=== PATIENT | male | born 1955 | race Caucasian/White ===

== ENCOUNTER → 2016-10-27 | Outpatient (CLI) | payer OTHER ==
[~2016-10-27] MED LIST: ASPI81TA85 PO; CALCTAB52 PO; MICA80TA PO; MULTTAB PO; OMEP20CA3 PO; SUPETAB25 PO
[2016-10-27 07:39] LABS: ALBUMIN/GLOBULIN RATIO 1.74 (1.00-1.93); ALKALINE PHOSPHATASE 121 U/L (45-117); ALT/SGPT 24 U/L (12-78); ANION GAP 9 MEQ/L (8-16); AST/SGOT 17 U/L (15-37); BILIRUBIN,TOTAL 0.5 MG/DL (0.2-1.0); BLOOD UREA NITROGEN 21 MG/DL (7-18); CALCIUM LEVEL 9.4 MG/DL (8.8-10.2); CARBON DIOXIDE LEVEL 28 MEQ/L (21-32); CHLORIDE LEVEL 108 MEQ/L (98-107); CHOLESTEROL LEVEL 146 MG/DL (<200); CREATININE FOR GFR 1.04 MG/DL (0.70-1.30); FERRITIN 267 NG/ML (26-388); GLOMERULAR FILTRATION RATE > 60.0 (>49); GLUCOSE, FASTING 94 MG/DL (80-110); PERCENT SATURATION 43.3 % (19.7-37.4); SODIUM LEVEL 145 MEQ/L (136-145); TOTAL IRON BINDING CAPACITY 240 UG/DL (250-450); TOTAL PROTEIN 6.3 GM/DL (6.4-8.2); TRIGLYCERIDES LEVEL 174 MG/DL (<150)
[2016-10-27 09:31] LABS: PROLACTIN 6.8 NG/ML (2.1-17.7); VITAMIN B12 LEVEL 337 PG/ML (247-911)
[2016-10-27 12:02] LABS: ALBUMIN 4.05 GM/DL (3.29-5.55); ALBUMIN % 64.3 % (55.8-66.1); GAMMA GLOBULIN % 6.9 % (11.1-18.8)
[2016-10-29 11:21] LABS: PRETREATED FOLATE FOR RBCFOL 16.1 NG/ML
== END ==
LOC: M LAB 06:11
PROVIDERS: ATTEND Family Medicine
DX: N18.2 Chronic kidney disease, stage 2 (mild) (principal); E83.119 Hemochromatosis, unspecified; R73.01 Impaired fasting glucose; E78.2 Mixed hyperlipidemia; N52.9 Male erectile dysfunction, unspecified

== ENCOUNTER → 2016-12-23 | Outpatient (CLI) | payer OTHER ==
--- NOTE | 2016-12-23 18:41 | ECGEPIP ---
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
== END ==
LOC: M LAB 08:38
PROVIDERS: ATTEND Orthopaedic Surgery
DX: Z01.818 Encounter for other preprocedural examination (principal); I10 Essential (primary) hypertension

== ENCOUNTER → 2017-02-23 | Outpatient (CLI) | payer OTHER ==
--- NOTE | 2017-02-23 21:25 | REP ---
CHEST PA AND LATERAL: 02/23/2017. Comparison: 02/14/2014, 08/19/2011. Clinical history: Suspected pneumonia. Two views are provided. Findings: Lungs are well inflated. CP angles sharply defined. There is some minor lateral pleural thickening bilaterally and apical pleural scarring noted. Mild hyperinflation and prominence of the pulmonary arteries bilaterally, unchanged. Peribronchial thickening noted bilaterally, which might reflect reactive airway disease or bronchitis. I do not see dense consolidation. Streaky atelectatic or early infiltrative changes in the bases on the lateral view and retrocardiac left lower lobe. No effusion. No air bronchograms. Heart not enlarged. No pulmonary edema. The aorta normal. Bones without compression deformity. Impression: 1. Perihilar changes of bronchitis or reactive airway disease without dense consolidation or air bronchograms. There are some streaky densities infrahilar region in the retrocardiac zone. 2. Pulmonary artery hypertension noted and apical pleural and lateral pleural scarring. 3. No cardiomegaly, edema or effusion. Signed by Deny Ríos MD 02/24/2017 06:03 P
== END ==
LOC: M ADAMS 17:30
PROVIDERS: ATTEND Physician Assistant Medical
DX: J18.9 Pneumonia, unspecified organism (principal)

== ENCOUNTER → 2017-03-24 | Outpatient (CLI) | payer OTHER ==
[2017-03-24 10:00] LABS: BASO % 0.6 % (0.0-1.0); EOS # 0.4 K/mm3 (0.0-0.50); EOS % 4.8 % (0.0-3.0); LARGE UNSTAINED CELL # 0.1 K/mm3 (0.0-0.4); LARGE UNSTAINED CELL % 1.5 % (0.0-4.0); LYMPH # 2.4 K/mm3 (1.5-4.5); LYMPH % 26.5 % (24.0-44.0); MEAN CORPUSCULAR HEMOGLOBIN 34.2 pg (27.0-33.0); MEAN CORPUSCULAR HGB CONC 34.4 g/dl (32.0-36.5); MEAN CORPUSCULAR VOLUME 99.6 fl (80.0-96.0); MONO # 0.5 K/mm3 (0.0-0.8); MONO % 5.9 % (0.0-5.0); NEUTROPHILS # 5.1 K/mm3 (1.8-7.7); NEUTROPHILS % 60.7 % (36.0-66.0); PLATELET COUNT, AUTOMATED 112 k/mm3 (150-450); RED CELL DISTRIBUTION WIDTH 14.1 % (11.5-14.5); WHITE BLOOD COUNT 8.4 K/mm3 (4.0-10.0)
[2017-03-24 10:48] LABS: FERRITIN 311 NG/ML (26-388); IMMUNOGLOBULIN G 303 MG/DL (681-1648); PERCENT SATURATION 40.6 % (19.7-37.4); TOTAL IRON BINDING CAPACITY 251 UG/DL (250-450); VITAMIN B12 LEVEL 410 PG/ML (247-911)
[2017-03-24 11:41] LABS: IMMUNOGLOBULIN A 18.3 MG/DL (70-400)
[2017-03-24 16:40] LABS: IMMUNOGLOBULIN M 300 MG/DL (40-230)
[2017-03-26 00:07] LABS: ANTI-PARIETAL CELL ANTIBODY 4.3 Units (0.0-20.0); FREE KAPPA LIGHT CHAINS SERUM 3814.5 mg/L (3.3-19.4); FREE LAMBDA LIGHT CHAINS SERUM 3.6 mg/L (5.7-26.3); KAPPA/LAMBDA RATIO SERUM 1059.58 (0.26-1.65)
== END ==
LOC: M LAB 08:39
PROVIDERS: ATTEND Family Medicine
DX: E83.119 Hemochromatosis, unspecified (principal)

== ENCOUNTER → 2017-04-01 | Outpatient (REF) | payer OTHER ==
[2017-04-01 12:13] LABS: ALBUMIN/GLOBULIN RATIO 1.43 (1.00-1.93); ALKALINE PHOSPHATASE 120 U/L (45-117); ALT/SGPT 29 U/L (12-78); ANION GAP 7 MEQ/L (8-16); AST/SGOT 21 U/L (15-37); BILIRUBIN,TOTAL 0.6 MG/DL (0.2-1.0); BLOOD UREA NITROGEN 17 MG/DL (7-18); CALCIUM LEVEL 9.1 MG/DL (8.8-10.2); CARBON DIOXIDE LEVEL 30 MEQ/L (21-32); CHLORIDE LEVEL 106 MEQ/L (98-107); CREATININE FOR GFR 1.07 MG/DL (0.70-1.30); GLOMERULAR FILTRATION RATE > 60.0 (>49); GLUCOSE, FASTING 84 MG/DL (80-110); SODIUM LEVEL 143 MEQ/L (136-145); TOTAL PROTEIN 6.8 GM/DL (6.4-8.2)
[2017-04-04 10:41] LABS: ALBUMIN 4.33 GM/DL (3.29-5.55); ALBUMIN % 63.7 % (55.8-66.1); GAMMA GLOBULIN % 6.6 % (11.1-18.8)
== END ==
LOC: M SFHCPLAZ 08:56
PROVIDERS: ATTEND Family Medicine
DX: D47.2 Monoclonal gammopathy (principal); R73.01 Impaired fasting glucose

== ENCOUNTER → 2017-04-12 | Outpatient (REF) | payer OTHER | LOC: M LAB REF 18:04 | PROVIDERS: ATTEND Internal Medicine Medical Oncology | DX: D47.2 Monoclonal gammopathy (principal) ==

== ENCOUNTER → 2017-04-12 | Outpatient (REF) | payer OTHER | LOC: M LAB REF 18:04 | PROVIDERS: ATTEND Internal Medicine Medical Oncology | DX: C90.00 Multiple myeloma not having achieved remission (principal) ==

== ENCOUNTER → 2017-06-14 | Outpatient (CLI) | payer OTHER ==
[2017-06-14 08:23] LABS: BASO # 0.1 10^3/uL (0.0-0.2); BASO % 0.9 % (0.0-1.0); EOS # 0.2 10^3/uL (0.0-0.50); EOS % 2.9 % (0.0-3.0); IMMATURE GRANULOCYTE % 3.8 % (0-0); LYMPH # 1.9 10^3/uL (1.5-4.5); MEAN CORPUSCULAR HEMOGLOBIN 33.6 pg (27.0-33.0); MEAN CORPUSCULAR HGB CONC 34.3 g/dl (32.0-36.5); MONO # 0.7 10^3/uL (0.0-0.8); MONO % 10.7 % (0.0-5.0); NEUTROPHILS # 3.7 10^3/uL (1.8-7.7); NEUTROPHILS % 53.7 % (36.0-66.0); PLATELET COUNT, AUTOMATED 112 10^3/uL (150-450); RED CELL DISTRIBUTION WIDTH 13.2 % (11.5-14.5); WHITE BLOOD COUNT 6.8 10^3/uL (4.0-10.0)
[2017-06-14 08:52] LABS: ALBUMIN 3.7 GM/DL (3.2-5.2); ALBUMIN/GLOBULIN RATIO 1.42 (1.00-1.93); ALKALINE PHOSPHATASE 105 U/L (45-117); ALT/SGPT 19 U/L (12-78); ANION GAP 7 MEQ/L (8-16); AST/SGOT 16 U/L (15-37); BILIRUBIN,TOTAL 0.5 MG/DL (0.2-1.0); BLOOD UREA NITROGEN 18 MG/DL (7-18); CALCIUM LEVEL 9.2 MG/DL (8.8-10.2); CARBON DIOXIDE LEVEL 28 MEQ/L (21-32); CHLORIDE LEVEL 107 MEQ/L (98-107); CREATININE FOR GFR 1.06 MG/DL (0.70-1.30); GLOMERULAR FILTRATION RATE > 60.0 (>49); GLUCOSE, FASTING 102 MG/DL (80-110); POTASSIUM SERUM 3.9 MEQ/L (3.5-5.1); SODIUM LEVEL 142 MEQ/L (136-145); TOTAL PROTEIN 6.3 GM/DL (6.4-8.2)
[2017-06-14 09:37] LABS: VITAMIN B12 LEVEL 268 PG/ML (247-911)
--- NOTE | 2017-06-14 09:46 | REP ---
Skeletal survey adult: 16 views. History: Monoclonal gammopathy. Comparison study: April 01, 2017. Technique: AP and lateral views of the skull, cervical spine, thoracic spine and lumbar spine are obtained. AP view of the pelvis and AP views of each humerus and each femur are acquired. Total of 16 views. Findings: AP and lateral views of the skull show an intact bony calvarium. No radiolucent lesion seen. Cervical spine views show degenerative disc disease but no collapse or focal lytic lesion. Swimmers lateral view shows no additional abnormality. AP and lateral views of the thoracic spine show mild levoconvex curvature and degenerative disc changes. Pedicles and posterior elements are intact. Vertebral body heights are preserved. Lumbar spine views show discogenic spurring but no other abnormality. There is some vascular calcification. AP pelvis shows no lytic lesion. AP views of the femurs are remarkable for old post-traumatic deformity of the right femoral diaphysis and some osteoarthritis of the right knee. Humeral views are unremarkable as well. Impression: Negative skeletal survey. No lytic bony destructive lesion seen. Signed by Amando Delarosa MD 06/14/2017 05:26 P
[2017-06-18 00:07] LABS: FREE KAPPA LIGHT CHAINS SERUM 3924.3 mg/L (3.3-19.4); KAPPA/LAMBDA RATIO SERUM 1308.1 (0.26-1.65)
== END ==
LOC: M RAD 07:28
PROVIDERS: ATTEND Internal Medicine Medical Oncology
DX: D47.2 Monoclonal gammopathy (principal)

== ENCOUNTER → 2017-08-01 | Outpatient (CLI) | payer OTHER ==
[2017-08-01 08:46] LABS: BASO # 0.1 10^3/uL (0.0-0.2); BASO % 0.6 % (0.0-1.0); EOS # 0.3 10^3/uL (0.0-0.50); EOS % 3.4 % (0.0-3.0); LYMPH # 2.4 10^3/uL (1.5-4.5); LYMPH % 29.7 % (24.0-44.0); MEAN CORPUSCULAR HEMOGLOBIN 33.3 pg (27.0-33.0); MEAN CORPUSCULAR HGB CONC 33.9 g/dl (32.0-36.5); MEAN CORPUSCULAR VOLUME 98.5 fl (80.0-96.0); MONO # 0.9 10^3/uL (0.0-0.8); MONO % 10.8 % (0.0-5.0); NEUTROPHILS # 4.2 10^3/uL (1.8-7.7); NEUTROPHILS % 52.5 % (36.0-66.0); PLATELET COUNT, AUTOMATED 111 10^3/uL (150-450); RED CELL DISTRIBUTION WIDTH 13.4 % (11.5-14.5)
[2017-08-01 09:22] LABS: ALBUMIN 3.7 GM/DL (3.2-5.2); ALBUMIN/GLOBULIN RATIO 1.48 (1.00-1.93); ALKALINE PHOSPHATASE 100 U/L (45-117); ALT/SGPT 17 U/L (12-78); ANION GAP 8 MEQ/L (8-16); AST/SGOT 17 U/L (7-37); BILIRUBIN,TOTAL 0.6 MG/DL (0.2-1.0); BLOOD UREA NITROGEN 17 MG/DL (7-18); CALCIUM LEVEL 8.9 MG/DL (8.8-10.2); CARBON DIOXIDE LEVEL 28 MEQ/L (21-32); CHLORIDE LEVEL 107 MEQ/L (98-107); CREATININE FOR GFR 1.01 MG/DL (0.70-1.30); GLOMERULAR FILTRATION RATE > 60.0 (>49); GLUCOSE, FASTING 86 MG/DL (80-110); MAGNESIUM LEVEL 2.1 MG/DL (1.8-2.4); SODIUM LEVEL 143 MEQ/L (136-145); TOTAL PROTEIN 6.2 GM/DL (6.4-8.2)
== END ==
LOC: M LAB 07:45
PROVIDERS: ATTEND Family Medicine
DX: I10 Essential (primary) hypertension (principal)

== ENCOUNTER → 2017-09-23 | Outpatient (CLI) | payer OTHER ==
[2017-09-23 08:41] LABS: BASO # 0.1 10^3/uL (0.0-0.2); EOS # 0.3 10^3/uL (0.0-0.50); EOS % 3.5 % (0.0-3.0); HEMATOCRIT 32.3 % (42.0-52.0); IMMATURE GRANULOCYTE # 0.1 10^3/uL (0-0); IMMATURE GRANULOCYTE % 1.8 % (0-0); LYMPH # 2.1 10^3/uL (1.5-4.5); LYMPH % 27.8 % (24.0-44.0); MEAN CORPUSCULAR HEMOGLOBIN 33.2 pg (27.0-33.0); MEAN CORPUSCULAR HGB CONC 34.1 g/dl (32.0-36.5); MEAN CORPUSCULAR VOLUME 97.6 fl (80.0-96.0); MONO # 0.8 10^3/uL (0.0-0.8); MONO % 9.9 % (0.0-5.0); NEUTROPHILS # 4.3 10^3/uL (1.8-7.7); PLATELET COUNT, AUTOMATED 113 10^3/uL (150-450); RED BLOOD COUNT 3.31 10^6/uL (4.30-6.10); RED CELL DISTRIBUTION WIDTH 13.8 % (11.5-14.5); WHITE BLOOD COUNT 7.7 10^3/uL (4.0-10.0)
[2017-09-23 09:31] LABS: ALBUMIN/GLOBULIN RATIO 1.48 (1.00-1.93); ALKALINE PHOSPHATASE 104 U/L (45-117); ALT/SGPT 21 U/L (12-78); ANION GAP 6 MEQ/L (8-16); AST/SGOT 19 U/L (7-37); BILIRUBIN,TOTAL 0.5 MG/DL (0.2-1.0); BLOOD UREA NITROGEN 19 MG/DL (7-18); CARBON DIOXIDE LEVEL 28 MEQ/L (21-32); CHLORIDE LEVEL 107 MEQ/L (98-107); CREATININE FOR GFR 1.01 MG/DL (0.70-1.30); GLOMERULAR FILTRATION RATE > 60.0 (>49); GLUCOSE, FASTING 99 MG/DL (80-110); IMMUNOGLOBULIN G 294 MG/DL (681-1648); POTASSIUM SERUM 4.1 MEQ/L (3.5-5.1); SODIUM LEVEL 141 MEQ/L (136-145); TOTAL PROTEIN 6.7 GM/DL (6.4-8.2)
[2017-09-23 10:43] LABS: IMMUNOGLOBULIN M 454 MG/DL (40-230)
[2017-09-23 10:44] LABS: IMMUNOGLOBULIN A 15.6 MG/DL (70-400)
[2017-09-26 11:23] LABS: ALBUMIN 4.25 GM/DL (3.29-5.55); ALBUMIN % 63.5 % (55.8-66.1); ALPHA-1-GLOBULIN % 4.3 % (2.9-4.9); ALPHA-1-GLOBULINS 0.29 GM/DL (0.17-0.41); ALPHA-2-GLOBULINS 0.82 GM/DL (0.42-0.99); ALPHA-2-GLOBULINS % 12.2 % (7.1-11.8); BETA-1-GLOBULINS 0.66 GM/DL (0.28-0.60); BETA-1-GLOBULINS % 9.9 % (4.7-7.2); BETA-2-GLOBULINS 0.25 GM/DL (0.19-0.55); BETA-2-GLOBULINS % 3.8 % (3.2-6.5); GAMMA GLOBULIN % 6.3 % (11.1-18.8); GAMMA GLOBULINS 0.42 GM/DL (0.65-1.58)
[2017-09-28 00:06] LABS: FREE KAPPA LIGHT CHAINS SERUM 4399.9 mg/L (3.3-19.4); FREE LAMBDA LIGHT CHAINS SERUM 3.1 mg/L (5.7-26.3); KAPPA/LAMBDA RATIO SERUM 1419.32 (0.26-1.65)
[2017-09-28 00:06] LABS: SERUM VISCOSITY 1.6 rel.saline (1.6-1.9)
== END ==
LOC: M LAB 07:48
DX: C85.90 Non-Hodgkin lymphoma, unspecified, unspecified site (principal)
CPT/HCPCS: 84165

== ENCOUNTER → 2017-11-25 | Outpatient (CLI) | payer OTHER ==
[2017-11-25 08:46] LABS: BASO # 0.1 10^3/uL (0.0-0.2); BASO % 0.7 % (0.0-1.0); EOS # 0.3 10^3/uL (0.0-0.50); EOS % 2.8 % (0.0-3.0); HEMATOCRIT 32.8 % (42.0-52.0); HEMOGLOBIN 10.8 g/dl (14.0-18.0); IMMATURE GRANULOCYTE % 2.5 % (0-3.0); LYMPH # 2.2 10^3/uL (1.5-4.5); LYMPH % 21.7 % (24.0-44.0); MEAN CORPUSCULAR HEMOGLOBIN 32.7 pg (27.0-33.0); MEAN CORPUSCULAR HGB CONC 32.9 g/dl (32.0-36.5); MEAN CORPUSCULAR VOLUME 99.4 fl (80.0-96.0); MONO # 0.8 10^3/uL (0.0-0.8); NEUTROPHILS # 6.4 10^3/uL (1.8-7.7); NEUTROPHILS % 64.3 % (36.0-66.0); PLATELET COUNT, AUTOMATED 118 10^3/uL (150-450); RED CELL DISTRIBUTION WIDTH 14.9 % (11.5-14.5); WHITE BLOOD COUNT 9.9 10^3/uL (4.0-10.0)
[2017-11-25 09:14] LABS: URINE TOTAL PROTEIN 50.9 MG/DL (0-12)
[2017-11-25 09:20] LABS: GLUCOSE, FASTING 95 MG/DL (70-100)
[2017-11-25 09:21] LABS: ALBUMIN 4.1 GM/DL (3.2-5.2); ALBUMIN/GLOBULIN RATIO 1.41 (1.00-1.93); ALKALINE PHOSPHATASE 137 U/L (45-117); ALT/SGPT 23 U/L (12-78); ANION GAP 8 MEQ/L (8-16); AST/SGOT 23 U/L (7-37); BILIRUBIN,TOTAL 0.5 MG/DL (0.2-1.0); BLOOD UREA NITROGEN 18 MG/DL (7-18); CALCIUM LEVEL 9.1 MG/DL (8.8-10.2); CARBON DIOXIDE LEVEL 27 MEQ/L (21-32); CHLORIDE LEVEL 106 MEQ/L (98-107); CREATININE FOR GFR 0.99 MG/DL (0.70-1.30); GLOMERULAR FILTRATION RATE > 60.0 (>49); POTASSIUM SERUM 4.3 MEQ/L (3.5-5.1); SODIUM LEVEL 141 MEQ/L (136-145)
[2017-11-28 14:22] LABS: ALBUMIN % 60.8 % (55.8-66.1); ALPHA-1-GLOBULIN % 4.9 % (2.9-4.9); ALPHA-2-GLOBULINS % 13.8 % (7.1-11.8); BETA-1-GLOBULINS % 10.1 % (4.7-7.2)
[2017-11-28 14:23] LABS: ALBUMIN 4.26 GM/DL (3.29-5.55); ALPHA-1-GLOBULINS 0.34 GM/DL (0.17-0.41); ALPHA-2-GLOBULINS 0.97 GM/DL (0.42-0.99); BETA-1-GLOBULINS 0.71 GM/DL (0.28-0.60); BETA-2-GLOBULINS 0.29 GM/DL (0.19-0.55); BETA-2-GLOBULINS % 4.1 % (3.2-6.5); GAMMA GLOBULIN % 6.3 % (11.1-18.8); GAMMA GLOBULINS 0.44 GM/DL (0.65-1.58)
[2017-11-30 00:07] LABS: FREE KAPPA LIGHT CHAINS SERUM 6611.5 mg/L (3.3-19.4); FREE LAMBDA LIGHT CHAINS SERUM 4.2 mg/L (5.7-26.3); KAPPA/LAMBDA RATIO SERUM 1574.17 (0.26-1.65)
== END ==
LOC: M LAB 07:55
DX: C85.90 Non-Hodgkin lymphoma, unspecified, unspecified site (principal)

== ENCOUNTER → 2018-01-06 | Outpatient (CLI) | payer OTHER ==
[2018-01-06 08:08] LABS: BASO # 0.1 10^3/uL (0.0-0.2); BASO % 0.8 % (0.0-1.0); EOS # 0.4 10^3/uL (0.0-0.50); EOS % 4.6 % (0.0-3.0); HEMATOCRIT 30.7 % (42.0-52.0); HEMOGLOBIN 10.4 g/dl (13.5-17.5); IMMATURE GRANULOCYTE % 1.9 % (0-3.0); LYMPH # 2.2 10^3/uL (1.5-4.5); LYMPH % 26.5 % (24.0-44.0); MEAN CORPUSCULAR HEMOGLOBIN 32.6 pg (27.0-33.0); MEAN CORPUSCULAR HGB CONC 33.9 g/dl (32.0-36.5); MEAN CORPUSCULAR VOLUME 96.2 fl (80.0-96.0); MONO # 0.7 10^3/uL (0.0-0.8); MONO % 8.7 % (0.0-5.0); NEUTROPHILS # 4.9 10^3/uL (1.8-7.7); NEUTROPHILS % 57.5 % (36.0-66.0); PLATELET COUNT, AUTOMATED 113 10^3/uL (150-450); RED BLOOD COUNT 3.19 10^6/uL (4.30-6.10); RED CELL DISTRIBUTION WIDTH 14.6 % (11.5-14.5); WHITE BLOOD COUNT 8.4 10^3/uL (4.0-10.0)
[2018-01-06 09:06] LABS: ALBUMIN 3.9 GM/DL (3.2-5.2); ALBUMIN/GLOBULIN RATIO 1.39 (1.00-1.93); ALKALINE PHOSPHATASE 118 U/L (45-117); ALT/SGPT 17 U/L (12-78); ANION GAP 8 MEQ/L (8-16); AST/SGOT 19 U/L (7-37); BILIRUBIN,TOTAL 0.4 MG/DL (0.2-1.0); BLOOD UREA NITROGEN 24 MG/DL (7-18); CALCIUM LEVEL 8.8 MG/DL (8.8-10.2); CARBON DIOXIDE LEVEL 26 MEQ/L (21-32); CHLORIDE LEVEL 107 MEQ/L (98-107); CREATININE FOR GFR 1.02 MG/DL (0.70-1.30); GLOMERULAR FILTRATION RATE > 60.0 (>49); GLUCOSE, FASTING 106 MG/DL (70-100); IMMUNOGLOBULIN G 257 MG/DL (681-1648); POTASSIUM SERUM 4.2 MEQ/L (3.5-5.1); SODIUM LEVEL 141 MEQ/L (136-145); TOTAL PROTEIN 6.7 GM/DL (6.4-8.2)
[2018-01-06 09:38] LABS: IMMUNOGLOBULIN M 413 MG/DL (40-230)
[2018-01-06 09:42] LABS: IMMUNOGLOBULIN A 14.9 MG/DL (70-400)
[2018-01-06 10:20] LABS: HEPATITIS B SURFACE ANTIGEN NEGATIVE (NEGATIVE)
[2018-01-06 10:47] LABS: HEPATITIS C VIRUS ABY INDEX < 0.0 INDEX (<0.8)
[2018-01-06 10:48] LABS: HEPATITIS B CORE ANTIBODY IGM NEGATIVE (NEGATIVE)
[2018-01-08 00:06] LABS: FREE KAPPA LIGHT CHAINS SERUM 4231.3 mg/L (3.3-19.4); FREE LAMBDA LIGHT CHAINS SERUM 2.6 mg/L (5.7-26.3); KAPPA/LAMBDA RATIO SERUM 1627.42 (0.26-1.65)
[2018-01-09 11:29] LABS: ALBUMIN 4.19 GM/DL (3.29-5.55); ALBUMIN % 62.6 % (55.8-66.1); ALPHA-1-GLOBULIN % 4.5 % (2.9-4.9); ALPHA-2-GLOBULINS % 13.6 % (7.1-11.8); BETA-1-GLOBULINS % 9.9 % (4.7-7.2); BETA-2-GLOBULINS % 3.8 % (3.2-6.5); GAMMA GLOBULIN % 5.6 % (11.1-18.8)
[2018-01-09 11:30] LABS: ALPHA-2-GLOBULINS 0.91 GM/DL (0.42-0.99); BETA-1-GLOBULINS 0.66 GM/DL (0.28-0.60); BETA-2-GLOBULINS 0.25 GM/DL (0.19-0.55); GAMMA GLOBULINS 0.38 GM/DL (0.65-1.58)
== END ==
LOC: M LAB 07:02
DX: E53.8 Deficiency of other specified B group vitamins (principal); D47.2 Monoclonal gammopathy; E83.119 Hemochromatosis, unspecified; R73.01 Impaired fasting glucose; E78.2 Mixed hyperlipidemia; N18.2 Chronic kidney disease, stage 2 (mild)
CPT/HCPCS: 84165

== ENCOUNTER → 2018-01-20 | Outpatient (CLI) | payer OTHER ==
[2018-01-20 08:30] LABS: BASO # 0.1 10^3/uL (0.0-0.2); BASO % 0.9 % (0.0-1.0); EOS # 0.4 10^3/uL (0.0-0.50); HEMATOCRIT 29.7 % (42.0-52.0); HEMOGLOBIN 9.9 g/dl (13.5-17.5); IMMATURE GRANULOCYTE % 1.9 % (0-3.0); LYMPH # 2.1 10^3/uL (1.5-4.5); LYMPH % 23.5 % (24.0-44.0); MEAN CORPUSCULAR HEMOGLOBIN 32.6 pg (27.0-33.0); MEAN CORPUSCULAR HGB CONC 33.3 g/dl (32.0-36.5); MEAN CORPUSCULAR VOLUME 97.7 fl (80.0-96.0); NEUTROPHILS # 5.2 10^3/uL (1.8-7.7); NEUTROPHILS % 58.7 % (36.0-66.0); PLATELET COUNT, AUTOMATED 113 10^3/uL (150-450); RED BLOOD COUNT 3.04 10^6/uL (4.30-6.10); RED CELL DISTRIBUTION WIDTH 14.8 % (11.5-14.5); WHITE BLOOD COUNT 8.8 10^3/uL (4.0-10.0)
[2018-01-20 08:51] LABS: ESTIMATED AVERAGE GLUCOSE 103 MG/DL (60-110); HEMOGLOBIN A1c 5.2 %
[2018-01-20 09:02] LABS: ALBUMIN 3.8 GM/DL (3.2-5.2); ALBUMIN/GLOBULIN RATIO 1.36 (1.00-1.93); ALKALINE PHOSPHATASE 116 U/L (45-117); ALT/SGPT 14 U/L (12-78); ANION GAP 5 MEQ/L (8-16); AST/SGOT 19 U/L (7-37); BILIRUBIN,TOTAL 0.5 MG/DL (0.2-1.0); BLOOD UREA NITROGEN 22 MG/DL (7-18); CALCIUM LEVEL 8.9 MG/DL (8.8-10.2); CARBON DIOXIDE LEVEL 27 MEQ/L (21-32); CHLORIDE LEVEL 110 MEQ/L (98-107); CHOLESTEROL LEVEL 143 MG/DL (<200); CREATININE FOR GFR 1.13 MG/DL (0.70-1.30); GLOMERULAR FILTRATION RATE > 60.0 (>49); GLUCOSE, FASTING 98 MG/DL (70-100); HDL CHOLESTEROL 25 MG/DL (>40); LDL CHOLESTEROL 68.4 MG/DL (<100); NON-HDL-C 118 MG/DL; POTASSIUM SERUM 4.5 MEQ/L (3.5-5.1); SODIUM LEVEL 142 MEQ/L (136-145); TOTAL PROTEIN 6.6 GM/DL (6.4-8.2); TRIGLYCERIDES LEVEL 248 MG/DL (<150)
[2018-01-20 11:08] LABS: VITAMIN B12 LEVEL 377 PG/ML (247-911)
== END ==
LOC: M LAB 07:51
DX: E53.8 Deficiency of other specified B group vitamins (principal)
CPT/HCPCS: 82607

== ENCOUNTER → 2018-03-02 | Outpatient (REF) | payer OTHER ==
[2018-03-02 11:31] LABS: IMMUNOGLOBULIN G 202 MG/DL (681-1648); IMMUNOGLOBULIN M 332 MG/DL (40-230)
[2018-03-02 12:27] LABS: IMMUNOGLOBULIN A 9.3 MG/DL (70-400)
[2018-03-04 08:08] LABS: SERUM VISCOSITY 1.6 rel.saline (1.6-1.9)
[2018-03-04 08:08] LABS: FREE KAPPA LIGHT CHAINS SERUM 3540.5 mg/L (3.3-19.4); FREE LAMBDA LIGHT CHAINS SERUM 2.4 mg/L (5.7-26.3); KAPPA/LAMBDA RATIO SERUM 1475.21 (0.26-1.65)
== END ==
LOC: M LAB REF 10:44
DX: C88.0 Waldenstrom macroglobulinemia (principal); C83.5 Lymphoblastic (diffuse) lymphoma (principal)
CPT/HCPCS: 82784

== ENCOUNTER → 2018-03-20 | Outpatient (REF) | payer MEDICARE, OTHER ==
[2018-03-20 18:53] LABS: IMMUNOGLOBULIN A < 7.8 MG/DL (70-400); IMMUNOGLOBULIN G 203 MG/DL (681-1648); IMMUNOGLOBULIN M 366 MG/DL (40-230)
[2018-03-29 09:06] LABS: SERUM VISCOSITY 1.8 rel.saline (1.6-1.9)
[2018-03-29 09:06] LABS: FREE KAPPA LIGHT CHAINS SERUM 3520.8 mg/L (3.3-19.4); FREE LAMBDA LIGHT CHAINS SERUM 1.9 mg/L (5.7-26.3); KAPPA/LAMBDA RATIO SERUM 1853.05 (0.26-1.65)
== END ==
LOC: M LAB REF 13:58
DX: C83.5 Lymphoblastic (diffuse) lymphoma (principal)
CPT/HCPCS: 82784

== ENCOUNTER → 2018-04-10 | Outpatient (REF) | payer MEDICARE, OTHER ==
[2018-04-12 00:07] LABS: FREE KAPPA LIGHT CHAINS SERUM 2270.3 mg/L (3.3-19.4); FREE LAMBDA LIGHT CHAINS SERUM 2.6 mg/L (5.7-26.3); KAPPA/LAMBDA RATIO SERUM 873.19 (0.26-1.65)
[2018-04-17 10:37] LABS: IMMUNOGLOBULIN M 245 MG/DL (40-230)
== END ==
LOC: M LAB REF 13:27
DX: C83.5 Lymphoblastic (diffuse) lymphoma (principal)
CPT/HCPCS: 82784

== ENCOUNTER → 2018-04-17 | Outpatient (REF) | payer OTHER ==
[2018-04-17 16:41] LABS: IMMUNOGLOBULIN G 142 MG/DL (681-1648); IMMUNOGLOBULIN M 200 MG/DL (40-230)
[2018-04-17 17:29] LABS: IMMUNOGLOBULIN A 8.3 MG/DL (70-400)
[2018-04-20 08:06] LABS: FREE KAPPA LIGHT CHAINS SERUM 2364.4 mg/L (3.3-19.4); FREE LAMBDA LIGHT CHAINS SERUM 1.9 mg/L (5.7-26.3); KAPPA/LAMBDA RATIO SERUM 1244.42 (0.26-1.65)
[2018-04-20 08:06] LABS: SERUM VISCOSITY 1.5 rel.saline (1.6-1.9)
== END ==
LOC: M LAB REF 13:15
DX: C83.5 Lymphoblastic (diffuse) lymphoma (principal)
CPT/HCPCS: 82784

== ENCOUNTER 2018-05-17 15:33 | Inpatient (IN) | payer MEDICARE, OTHER ==
[2018-05-17] MEDS: NS 500 ML IV ×2 (16:00→17:30)
[2018-05-17 16:31] LABS: HEMATOCRIT 32.1 % (42.0-52.0); HEMOGLOBIN 10.8 g/dl (13.5-17.5); MEAN CORPUSCULAR HEMOGLOBIN 30.6 pg (27.0-33.0); MEAN CORPUSCULAR HGB CONC 33.6 g/dl (32.0-36.5); MEAN CORPUSCULAR VOLUME 90.9 fl (80.0-96.0); PLATELET COUNT, AUTOMATED 283 10^3/uL (150-450); RED BLOOD COUNT 3.53 10^6/uL (4.30-6.10); RED CELL DISTRIBUTION WIDTH 14.7 % (11.5-14.5); WHITE BLOOD COUNT 27.6 10^3/uL (4.0-10.0)
[2018-05-17 16:57] LABS: LACTIC ACID SEPSIS PROTOCOL 1.3 MMOL/L (0.4-2.0)
[2018-05-17 17:05] LABS: ADD MANUAL DIFFER YES; DIFF SLIDE NUMBER 361; POSITIVE DIFF POS FLAG
[2018-05-17 17:07] LABS: CPK CREATINE PHOSPHOKINASE 145 U/L (39-308); MB/CK RELATIVE INDEX 8.62 (< OR =4); TROPONIN I 3.39 NG/ML (< 0.10)
[2018-05-17 17:09] LABS: ATYPICAL LYMPH 5 % (0-5); BANDS 5 % (< 11); LYMPHOCYTES 2 % (16-52); MONOCYTES 9 % (0-8); NEUTROPHILS 79 % (35-75); PLATELET ESTIMATE NORMAL (NORMAL)
[2018-05-17 17:48] LABS: APPEARANCE, URINE CLEAR (CLEAR); BACTERIA, URINE AUTO NEGATIVE (NEGATIVE); BILIRUBIN, URINE AUTO NEGATIVE (NEGATIVE); BLOOD, URINE BLOOD NEGATIVE (NEGATIVE); COLOR, URINE YELLOW (YELLOW); GLUCOSE, URINE (UA) AUTO NEGATIVE (NEGATIVE); KETONE, URINE AUTO NEGATIVE (NEGATIVE); LEUKOCYTE ESTERASE, URINE AUTO NEGATIVE (NEGATIVE); MUCUS, URINE SMALL (NEGATIVE); NITRITE, URINE AUTO NEGATIVE (NEGATIVE); PROTEIN, URINE AUTO 1+ mg/dL (NEGATIVE); RBC, URINE AUTO 2 /HPF (0-3); SPECIFIC GRAVITY URINE AUTO 1.019 (1.002-1.035); SQUAMOUS EPITHELIAL CELL UR AU 0 /HPF (0-6); UROBILINOGEN, URINE AUTO 0.2 mg/dL (0.0-2.0); WBC, URINE AUTO 7 /HPF (0-3)
[2018-05-17] MEDS: cefTRIAXone SOD 2 GM in D5W MINI-BAG PLUS 50 ML IV (18:07)
[2018-05-17] MEDS: DILUENT IV (18:08)
[2018-05-17] MEDS: NS IV (18:08)
[2018-05-17 18:18] LABS: ALBUMIN 3.5 GM/DL (3.2-5.2); ALBUMIN/GLOBULIN RATIO 1.46 (1.00-1.93); ALKALINE PHOSPHATASE 96 U/L (45-117); ALT/SGPT 20 U/L (12-78); ANION GAP 8 MEQ/L (8-16); AST/SGOT 28 U/L (7-37); BILIRUBIN,DIRECT 0.3 MG/DL (0.0-0.2); BILIRUBIN,TOTAL 1.2 MG/DL (0.2-1.0); BLOOD UREA NITROGEN 22 MG/DL (7-18); CALCIUM LEVEL 9.2 MG/DL (8.8-10.2); CARBON DIOXIDE LEVEL 27 MEQ/L (21-32); CHLORIDE LEVEL 101 MEQ/L (98-107); CPK CREATINE PHOSPHOKINASE 140 U/L (39-308); CREATININE FOR GFR 1.13 MG/DL (0.70-1.30); GLOMERULAR FILTRATION RATE > 60.0 (>49); GLUCOSE, FASTING 104 MG/DL (70-100); MB/CK RELATIVE INDEX 9.07 (< OR =4); POTASSIUM SERUM 4.3 MEQ/L (3.5-5.1); SODIUM LEVEL 136 MEQ/L (136-145); TOTAL PROTEIN 5.9 GM/DL (6.4-8.2); TROPONIN I 3.01 NG/ML (< 0.10)
[2018-05-17] MEDS ORDERED: PROHANCE 279.3MG/ML 15ML VIAL (A9576) As Ordered (20:14)
[2018-05-17] MEDS ORDERED: ONDANSETRON 4MG/2ML VIAL (J2405) IV (20:15)
[2018-05-17 20:29] LABS: C REACTIVE PROTEIN QUANTITATIV 8.42 MG/DL (0.00-0.30)
[2018-05-17] MEDS ORDERED: ISOVUE-370 76% 100ML VIAL (Q9967) As Ordered (20:32)
[2018-05-17 20:59] LABS: REASON FOR REVIEW WBC/LEUKEMIA/BLAST; SLIDE REVIEW Report; SOURCE PERIPHERAL SMEAR
[2018-05-17] MEDS: VANCOMYCIN HCL 1,000 MG, VIAL MATE ADAPTER 1 EACH in D5W 250 ML IV (21:00)
[2018-05-17] MEDS: GABAPENTIN 400 MG CAP PO (21:15)
[2018-05-17] MEDS: ATORVASTATIN 20 MG TAB PO (21:15)
[2018-05-17] MEDS: PERCOCET 5MG/325MG TAB PO (21:16)
[2018-05-17 21:34] LABS: ERYTHROCYTE SEDIMENTATION RATE 44 mm/hr (0-20)
[2018-05-17] MEDS: NS 1,000 ML IV (22:32)
[2018-05-17] MEDS: SENOKOT S TAB PO (22:33)
[2018-05-18 00:21] LABS: CPK CREATINE PHOSPHOKINASE 108 U/L (39-308); MB/CK RELATIVE INDEX 9.07 (< OR =4); TROPONIN I 3.31 NG/ML (< 0.10)
[2018-05-18] MEDS: VANCOMYCIN HCL 1,000 MG, VIAL MATE ADAPTER 1 EACH in D5W 250 ML IV ×3 (01:11→16:44)
[2018-05-18] MEDS: ACETAMINOPHEN 325 MG TAB PO (01:11)
[2018-05-18] MEDS: PERCOCET 5MG/325MG TAB PO ×5 (02:55→21:20)
[2018-05-18 05:35] LABS: BASO # 0.1 10^3/uL (0.0-0.2); BASO % 0.3 % (0.0-1.0); EOS # 0.1 10^3/uL (0.0-0.50); EOS % 0.5 % (0.0-3.0); HEMATOCRIT 29.3 % (42.0-52.0); HEMOGLOBIN 9.6 g/dl (13.5-17.5); IMMATURE GRANULOCYTE % 0.8 % (0-3.0); LYMPH # 2.2 10^3/uL (1.5-4.5); LYMPH % 11.6 % (24.0-44.0); MEAN CORPUSCULAR HEMOGLOBIN 30.1 pg (27.0-33.0); MEAN CORPUSCULAR HGB CONC 32.8 g/dl (32.0-36.5); MEAN CORPUSCULAR VOLUME 91.8 fl (80.0-96.0); MONO # 1.4 10^3/uL (0.0-0.8); MONO % 7.7 % (0.0-5.0); NEUTROPHILS # 14.8 10^3/uL (1.8-7.7); NEUTROPHILS % 79.1 % (36.0-66.0); PLATELET COUNT, AUTOMATED 254 10^3/uL (150-450); RED BLOOD COUNT 3.19 10^6/uL (4.30-6.10); RED CELL DISTRIBUTION WIDTH 14.7 % (11.5-14.5); WHITE BLOOD COUNT 18.8 10^3/uL (4.0-10.0)
[2018-05-18 05:59] LABS: ERYTHROCYTE SEDIMENTATION RATE 44 mm/hr (0-20)
[2018-05-18] MEDS: NS 1,000 ML IV (06:30)
[2018-05-18] MEDS: CEFEPIME HCL 1 GM in D5W MINI-BAG PLUS 50 ML IV ×2 (06:30→17:57)
[2018-05-18 06:57] LABS: ALBUMIN/GLOBULIN RATIO 1.15 (1.00-1.93); ALKALINE PHOSPHATASE 78 U/L (45-117); ALT/SGPT 17 U/L (12-78); ANION GAP 5 MEQ/L (8-16); AST/SGOT 27 U/L (7-37); BILIRUBIN,TOTAL 0.5 MG/DL (0.2-1.0); BLOOD UREA NITROGEN 16 MG/DL (7-18); C REACTIVE PROTEIN QUANTITATIV 9.27 MG/DL (0.00-0.30); CALCIUM LEVEL 8.7 MG/DL (8.8-10.2); CARBON DIOXIDE LEVEL 27 MEQ/L (21-32); CHLORIDE LEVEL 108 MEQ/L (98-107); CPK CREATINE PHOSPHOKINASE 82 U/L (39-308); CREATININE FOR GFR 0.87 MG/DL (0.70-1.30); GLOMERULAR FILTRATION RATE > 60.0 (>49); GLUCOSE, FASTING 100 MG/DL (70-100); MAGNESIUM LEVEL 2.2 MG/DL (1.8-2.4); MB/CK RELATIVE INDEX 8.41 (< OR =4); POTASSIUM SERUM 4.1 MEQ/L (3.5-5.1); SODIUM LEVEL 140 MEQ/L (136-145); TOTAL PROTEIN 5.6 GM/DL (6.4-8.2); TROPONIN I 2.93 NG/ML (< 0.10)
[2018-05-18] MEDS: ASPIRIN 81 MG ENTERIC TAB PO (08:24)
[2018-05-18] MEDS: GABAPENTIN 400 MG CAP PO ×3 (08:24→21:21)
[2018-05-18] MEDS: OMEPRAZOLE 20 MG CAP PO (08:25)
[2018-05-18] MEDS: MULTIVITAMINS/MINERALS THERAP 1 TAB PO (08:26)
[2018-05-18] MEDS: SENOKOT S TAB PO ×2 (08:26→21:20)
[2018-05-18] MEDS: HEPARIN SOD (PORCINE) 5000 UNITS/ML VIAL SC ×2 (08:34→21:21)
[2018-05-18] MEDS: DULoxetine 20 MG CAP (CYMBALTA) PO ×2 (09:40→22:03)
[2018-05-18] MEDS: HYDROCORTISONE 100 MG/2 ML VIAL (J1720) IV ×2 (09:40→21:19)
[2018-05-18 13:33] LABS: CPK CREATINE PHOSPHOKINASE 68 U/L (39-308); FREE T4 1.09 NG/DL (0.76-1.46); MB/CK RELATIVE INDEX 6.76 (< OR =4); TROPONIN I 2.28 NG/ML (< 0.10)
[2018-05-18 14:47] LABS: FOLATE > 24.0 NG/ML (>5.4)
[2018-05-18] MEDS ORDERED: PROHANCE 279.3MG/ML 15ML VIAL (A9576) As Ordered (14:53)
[2018-05-18] MEDS: ATORVASTATIN 20 MG TAB PO (21:20)
[2018-05-18 23:21] LABS: VANCOMYCIN LEVEL TROUGH 16.9 UG/ML (10.0-20.0)
[2018-05-19] MEDS: VANCOMYCIN HCL 1,000 MG, VIAL MATE ADAPTER 1 EACH in D5W 250 ML IV ×3 (00:21→16:47)
[2018-05-19] MEDS: PERCOCET 5MG/325MG TAB PO ×6 (00:22→22:45)
[2018-05-19] MEDS: IPRATROPIUM 0.5MG/ALBUTEROL 2.5MG INH SOL UD 3ML (DUONEB)(J7620) NEB ×2 (03:36→20:47)
[2018-05-19] MEDS: CEFEPIME HCL 1 GM in D5W MINI-BAG PLUS 50 ML IV ×2 (05:18→18:31)
[2018-05-19 06:18] LABS: BASO # 0.1 10^3/uL (0.0-0.2); BASO % 0.4 % (0.0-1.0); EOS # 0.1 10^3/uL (0.0-0.50); EOS % 0.8 % (0.0-3.0); HEMATOCRIT 28.2 % (42.0-52.0); HEMOGLOBIN 9.4 g/dl (13.5-17.5); IMMATURE GRANULOCYTE % 0.5 % (0-3.0); LYMPH # 2.1 10^3/uL (1.5-4.5); LYMPH % 15.9 % (24.0-44.0); MEAN CORPUSCULAR HEMOGLOBIN 30.1 pg (27.0-33.0); MEAN CORPUSCULAR HGB CONC 33.3 g/dl (32.0-36.5); MEAN CORPUSCULAR VOLUME 90.4 fl (80.0-96.0); MONO # 1.1 10^3/uL (0.0-0.8); MONO % 8.3 % (0.0-5.0); NEUTROPHILS # 9.8 10^3/uL (1.8-7.7); NEUTROPHILS % 74.1 % (36.0-66.0); PLATELET COUNT, AUTOMATED 244 10^3/uL (150-450); RED BLOOD COUNT 3.12 10^6/uL (4.30-6.10); RED CELL DISTRIBUTION WIDTH 14.6 % (11.5-14.5); WHITE BLOOD COUNT 13.2 10^3/uL (4.0-10.0)
[2018-05-19 06:53] LABS: ALBUMIN 3.1 GM/DL (3.2-5.2); ALBUMIN/GLOBULIN RATIO 1.24 (1.00-1.93); ALKALINE PHOSPHATASE 82 U/L (45-117); ALT/SGPT 18 U/L (12-78); ANION GAP 7 MEQ/L (8-16); AST/SGOT 15 U/L (7-37); BILIRUBIN,TOTAL 0.4 MG/DL (0.2-1.0); BLOOD UREA NITROGEN 15 MG/DL (7-18); C REACTIVE PROTEIN QUANTITATIV 4.05 MG/DL (0.00-0.30); CALCIUM LEVEL 8.7 MG/DL (8.8-10.2); CARBON DIOXIDE LEVEL 23 MEQ/L (21-32); CHLORIDE LEVEL 107 MEQ/L (98-107); CREATININE FOR GFR 0.74 MG/DL (0.70-1.30); GLOMERULAR FILTRATION RATE > 60.0 (>49); GLUCOSE, FASTING 110 MG/DL (70-100); MAGNESIUM LEVEL 2.3 MG/DL (1.8-2.4); POTASSIUM SERUM 3.6 MEQ/L (3.5-5.1); SODIUM LEVEL 137 MEQ/L (136-145); TOTAL PROTEIN 5.6 GM/DL (6.4-8.2); TROPONIN I 2.14 NG/ML (< 0.10)
[2018-05-19] MEDS ORDERED: SLF 3 ML SYR IV (08:00)
[2018-05-19] MEDS: HYDROCORTISONE 100 MG/2 ML VIAL (J1720) IV ×2 (08:35→22:03)
[2018-05-19] MEDS: SENOKOT S TAB PO ×2 (08:36→22:03)
[2018-05-19] MEDS: ASPIRIN 81 MG ENTERIC TAB PO (08:36)
[2018-05-19] MEDS: OMEPRAZOLE 20 MG CAP PO (08:36)
[2018-05-19] MEDS: GABAPENTIN 400 MG CAP PO ×3 (08:36→22:03)
[2018-05-19] MEDS: MULTIVITAMINS/MINERALS THERAP 1 TAB PO (08:36)
[2018-05-19] MEDS: HEPARIN SOD (PORCINE) 5000 UNITS/ML VIAL SC ×2 (08:37→22:03)
[2018-05-19] MEDS ORDERED: FLEET ENEMA PR (09:45)
[2018-05-19] MEDS: DULoxetine 20 MG CAP (CYMBALTA) PO ×2 (12:20→22:03)
[2018-05-19] MEDS: SLF 3 ML SYR IV ×2 (13:35→22:04)
[2018-05-19] MEDS: MIRALAX *UNIT DOSE* 17GM PACKET PO (13:35)
[2018-05-19] MEDS: ATORVASTATIN 20 MG TAB PO (22:02)
[2018-05-20] MEDS: VANCOMYCIN HCL 1,000 MG, VIAL MATE ADAPTER 1 EACH in D5W 250 ML IV ×3 (00:35→16:22)
[2018-05-20] MEDS: PERCOCET 5MG/325MG TAB PO ×5 (02:44→22:39)
[2018-05-20 05:56] LABS: BASO % 0.3 % (0.0-1.0); EOS % 0.2 % (0.0-3.0); HEMATOCRIT 29.7 % (42.0-52.0); IMMATURE GRANULOCYTE % 0.4 % (0-3.0); LYMPH # 1.7 10^3/uL (1.5-4.5); LYMPH % 14.2 % (24.0-44.0); MEAN CORPUSCULAR HEMOGLOBIN 30.1 pg (27.0-33.0); MEAN CORPUSCULAR HGB CONC 33.7 g/dl (32.0-36.5); MEAN CORPUSCULAR VOLUME 89.5 fl (80.0-96.0); MONO # 0.7 10^3/uL (0.0-0.8); MONO % 6.1 % (0.0-5.0); NEUTROPHILS # 9.3 10^3/uL (1.8-7.7); NEUTROPHILS % 78.8 % (36.0-66.0); PLATELET COUNT, AUTOMATED 303 10^3/uL (150-450); RED BLOOD COUNT 3.32 10^6/uL (4.30-6.10); RED CELL DISTRIBUTION WIDTH 14.5 % (11.5-14.5); WHITE BLOOD COUNT 11.8 10^3/uL (4.0-10.0)
[2018-05-20 06:34] LABS: ALBUMIN 3.2 GM/DL (3.2-5.2); ALBUMIN/GLOBULIN RATIO 1.14 (1.00-1.93); ALKALINE PHOSPHATASE 93 U/L (45-117); ALT/SGPT 20 U/L (12-78); ANION GAP 8 MEQ/L (8-16); AST/SGOT 15 U/L (7-37); BILIRUBIN,TOTAL 0.5 MG/DL (0.2-1.0); BLOOD UREA NITROGEN 13 MG/DL (7-18); C REACTIVE PROTEIN QUANTITATIV 1.92 MG/DL (0.00-0.30); CALCIUM LEVEL 8.9 MG/DL (8.8-10.2); CARBON DIOXIDE LEVEL 24 MEQ/L (21-32); CHLORIDE LEVEL 102 MEQ/L (98-107); CREATININE FOR GFR 0.68 MG/DL (0.70-1.30); GLOMERULAR FILTRATION RATE > 60.0 (>49); GLUCOSE, FASTING 98 MG/DL (70-100); MAGNESIUM LEVEL 2.1 MG/DL (1.8-2.4); SODIUM LEVEL 134 MEQ/L (136-145)
[2018-05-20] MEDS: SLF 3 ML SYR IV ×3 (07:11→21:59)
[2018-05-20] MEDS: CEFEPIME HCL 1 GM in D5W MINI-BAG PLUS 50 ML IV ×2 (07:11→18:10)
[2018-05-20] MEDS: HYDROCORTISONE 100 MG/2 ML VIAL (J1720) IV ×2 (08:54→21:57)
[2018-05-20] MEDS: HEPARIN SOD (PORCINE) 5000 UNITS/ML VIAL SC ×2 (08:54→21:58)
[2018-05-20] MEDS: ASPIRIN 81 MG ENTERIC TAB PO (08:54)
[2018-05-20] MEDS: MIRALAX *UNIT DOSE* 17GM PACKET PO (08:55)
[2018-05-20] MEDS: SENOKOT S TAB PO ×2 (08:55→21:57)
[2018-05-20] MEDS: DULoxetine 20 MG CAP (CYMBALTA) PO ×2 (08:55→21:57)
[2018-05-20] MEDS: OMEPRAZOLE 20 MG CAP PO (08:55)
[2018-05-20] MEDS: GABAPENTIN 400 MG CAP PO ×3 (08:55→21:57)
[2018-05-20] MEDS: MULTIVITAMINS/MINERALS THERAP 1 TAB PO (08:55)
[2018-05-20 13:56] LABS: NT-PRO BNP 4004 PG/ML (<125)
[2018-05-20] MEDS: CARVedilol 3.125 MG TAB PO ×2 (14:14→21:57)
[2018-05-20] MEDS: ATORVASTATIN 20 MG TAB PO (21:56)
[2018-05-21] MEDS: VANCOMYCIN HCL 1,000 MG, VIAL MATE ADAPTER 1 EACH in D5W 250 ML IV ×3 (00:12→22:01)
[2018-05-21] MEDS: PERCOCET 5MG/325MG TAB PO ×5 (03:37→20:49)
[2018-05-21] MEDS: SLF 3 ML SYR IV ×3 (05:18→20:45)
[2018-05-21] MEDS: CEFEPIME HCL 1 GM in D5W MINI-BAG PLUS 50 ML IV ×2 (05:18→17:42)
[2018-05-21 05:42] LABS: BASO # 0.1 10^3/uL (0.0-0.2); BASO % 0.5 % (0.0-1.0); EOS % 0.4 % (0.0-3.0); HEMATOCRIT 29.9 % (42.0-52.0); IMMATURE GRANULOCYTE % 0.8 % (0-3.0); LYMPH # 1.7 10^3/uL (1.5-4.5); LYMPH % 18.7 % (24.0-44.0); MEAN CORPUSCULAR HEMOGLOBIN 29.5 pg (27.0-33.0); MEAN CORPUSCULAR HGB CONC 33.4 g/dl (32.0-36.5); MEAN CORPUSCULAR VOLUME 88.2 fl (80.0-96.0); MONO # 0.8 10^3/uL (0.0-0.8); MONO % 8.8 % (0.0-5.0); NEUTROPHILS # 6.5 10^3/uL (1.8-7.7); NEUTROPHILS % 70.8 % (36.0-66.0); PLATELET COUNT, AUTOMATED 326 10^3/uL (150-450); RED BLOOD COUNT 3.39 10^6/uL (4.30-6.10); RED CELL DISTRIBUTION WIDTH 14.2 % (11.5-14.5); WHITE BLOOD COUNT 9.2 10^3/uL (4.0-10.0)
[2018-05-21 06:10] LABS: ALKALINE PHOSPHATASE 88 U/L (45-117); ALT/SGPT 20 U/L (12-78); ANION GAP 8 MEQ/L (8-16); AST/SGOT 11 U/L (7-37); BILIRUBIN,TOTAL 0.5 MG/DL (0.2-1.0); BLOOD UREA NITROGEN 11 MG/DL (7-18); C REACTIVE PROTEIN QUANTITATIV 1.08 MG/DL (0.00-0.30); CARBON DIOXIDE LEVEL 25 MEQ/L (21-32); CHLORIDE LEVEL 100 MEQ/L (98-107); CREATININE FOR GFR 0.68 MG/DL (0.70-1.30); GLOMERULAR FILTRATION RATE > 60.0 (>49); GLUCOSE, FASTING 94 MG/DL (70-100); POTASSIUM SERUM 3.9 MEQ/L (3.5-5.1); SODIUM LEVEL 133 MEQ/L (136-145); TOTAL PROTEIN 5.5 GM/DL (6.4-8.2)
[2018-05-21 07:24] LABS: VANCOMYCIN LEVEL TROUGH 23.7 UG/ML (10.0-20.0)
[2018-05-21] MEDS: HYDROCORTISONE 100 MG/2 ML VIAL (J1720) IV ×2 (08:53→20:42)
[2018-05-21] MEDS: MIRALAX *UNIT DOSE* 17GM PACKET PO (08:53)
[2018-05-21] MEDS: OMEPRAZOLE 20 MG CAP PO (08:54)
[2018-05-21] MEDS: HEPARIN SOD (PORCINE) 5000 UNITS/ML VIAL SC ×2 (08:54→20:44)
[2018-05-21] MEDS: CARVedilol 3.125 MG TAB PO ×2 (08:54→20:44)
[2018-05-21] MEDS: ASPIRIN 81 MG ENTERIC TAB PO (08:54)
[2018-05-21] MEDS: MULTIVITAMINS/MINERALS THERAP 1 TAB PO (08:54)
[2018-05-21] MEDS: DULoxetine 20 MG CAP (CYMBALTA) PO ×2 (08:54→20:44)
[2018-05-21] MEDS: GABAPENTIN 400 MG CAP PO ×3 (08:55→20:44)
[2018-05-21] MEDS: SENOKOT S TAB PO ×2 (08:55→20:43)
[2018-05-21] MEDS: ATORVASTATIN 20 MG TAB PO (20:43)
[2018-05-22] MEDS: PERCOCET 5MG/325MG TAB PO ×3 (04:49→16:00)
[2018-05-22 05:25] LABS: BASO # 0.1 10^3/uL (0.0-0.2); BASO % 1.2 % (0.0-1.0); EOS # 0.1 10^3/uL (0.0-0.50); EOS % 0.7 % (0.0-3.0); HEMOGLOBIN 10.4 g/dl (13.5-17.5); IMMATURE GRANULOCYTE % 0.8 % (0-3.0); LYMPH # 2.2 10^3/uL (1.5-4.5); LYMPH % 25.4 % (24.0-44.0); MEAN CORPUSCULAR HGB CONC 33.5 g/dl (32.0-36.5); MEAN CORPUSCULAR VOLUME 89.3 fl (80.0-96.0); MONO # 1.1 10^3/uL (0.0-0.8); MONO % 12.7 % (0.0-5.0); NEUTROPHILS % 59.2 % (36.0-66.0); PLATELET COUNT, AUTOMATED 343 10^3/uL (150-450); RED BLOOD COUNT 3.47 10^6/uL (4.30-6.10); RED CELL DISTRIBUTION WIDTH 14.6 % (11.5-14.5); WHITE BLOOD COUNT 8.5 10^3/uL (4.0-10.0)
[2018-05-22 05:43] LABS: ALBUMIN 3.1 GM/DL (3.2-5.2); ALBUMIN/GLOBULIN RATIO 1.15 (1.00-1.93); ALKALINE PHOSPHATASE 88 U/L (45-117); ALT/SGPT 25 U/L (12-78); ANION GAP 9 MEQ/L (8-16); AST/SGOT 21 U/L (7-37); BILIRUBIN,TOTAL 0.4 MG/DL (0.2-1.0); BLOOD UREA NITROGEN 11 MG/DL (7-18); CALCIUM LEVEL 9.1 MG/DL (8.8-10.2); CARBON DIOXIDE LEVEL 28 MEQ/L (21-32); CHLORIDE LEVEL 102 MEQ/L (98-107); CREATININE FOR GFR 0.81 MG/DL (0.70-1.30); GLOMERULAR FILTRATION RATE > 60.0 (>49); GLUCOSE, FASTING 81 MG/DL (70-100); MAGNESIUM LEVEL 2.2 MG/DL (1.8-2.4); POTASSIUM SERUM 3.9 MEQ/L (3.5-5.1); SODIUM LEVEL 139 MEQ/L (136-145); TOTAL PROTEIN 5.8 GM/DL (6.4-8.2)
[2018-05-22] MEDS: CEFEPIME HCL 1 GM in D5W MINI-BAG PLUS 50 ML IV (05:55)
[2018-05-22] MEDS: SLF 3 ML SYR IV ×2 (05:56→10:54)
[2018-05-22] MEDS: HEPARIN SOD (PORCINE) 5000 UNITS/ML VIAL SC (09:30)
[2018-05-22] MEDS: MIRALAX *UNIT DOSE* 17GM PACKET PO (09:30)
[2018-05-22] MEDS: SENOKOT S TAB PO (09:31)
[2018-05-22] MEDS: MULTIVITAMINS/MINERALS THERAP 1 TAB PO (09:31)
[2018-05-22] MEDS: DULoxetine 20 MG CAP (CYMBALTA) PO (09:31)
[2018-05-22] MEDS: ASPIRIN 81 MG ENTERIC TAB PO (09:31)
[2018-05-22] MEDS: CARVedilol 3.125 MG TAB PO (09:31)
[2018-05-22] MEDS: OMEPRAZOLE 20 MG CAP PO (09:31)
[2018-05-22] MEDS: GABAPENTIN 400 MG CAP PO ×2 (09:31→16:00)
[2018-05-22] MEDS: VANCOMYCIN HCL 1,000 MG, VIAL MATE ADAPTER 1 EACH in D5W 250 ML IV (09:32)
== END 2018-05-22 18:54 | disposition home or self-care (01) | DRG 280 ==
LOC: M PCU 05-18 16:31 → M ED 15:33 → M ED INP 20:03
DX: I21.A1 Myocardial infarction type 2 (principal); R65.21 Severe sepsis with septic shock; A41.9 Sepsis, unspecified organism; C83.00 Small cell B-cell lymphoma, unspecified site; I10 Essential (primary) hypertension; G43.909 Migraine, unspecified, not intractable, without status migrainosus; N18.9 Chronic kidney disease, unspecified; K22.70 Barrett's esophagus without dysplasia; G62.0 Drug-induced polyneuropathy; I34.0 Nonrheumatic mitral (valve) insufficiency; T45.1X5A Adverse effect of antineoplastic and immunosuppressive drugs, initial encounter; Z87.891 Personal history of nicotine dependence; K59.00 Constipation, unspecified; Z79.82 Long term (current) use of aspirin; Z79.891 Long term (current) use of opiate analgesic; Z79.899 Other long term (current) drug therapy

== ENCOUNTER → 2018-05-24 | Outpatient (REF) | payer MEDICARE, OTHER ==
[2018-05-24 13:46] LABS: BASO # 0.1 10^3/uL (0.0-0.2); BASO % 0.9 % (0.0-1.0); EOS # 0.2 10^3/uL (0.0-0.50); EOS % 1.7 % (0.0-3.0); HEMATOCRIT 34.8 % (42.0-52.0); HEMOGLOBIN 11.4 g/dl (13.5-17.5); LYMPH # 1.7 10^3/uL (1.5-4.5); LYMPH % 15.5 % (24.0-44.0); MEAN CORPUSCULAR HEMOGLOBIN 30.3 pg (27.0-33.0); MEAN CORPUSCULAR HGB CONC 32.8 g/dl (32.0-36.5); MEAN CORPUSCULAR VOLUME 92.6 fl (80.0-96.0); MONO # 1.2 10^3/uL (0.0-0.8); MONO % 10.9 % (0.0-5.0); NEUTROPHILS # 7.7 10^3/uL (1.8-7.7); PLATELET COUNT, AUTOMATED 404 10^3/uL (150-450); RED BLOOD COUNT 3.76 10^6/uL (4.30-6.10); RED CELL DISTRIBUTION WIDTH 15.1 % (11.5-14.5); WHITE BLOOD COUNT 11.1 10^3/uL (4.0-10.0)
[2018-05-24 14:52] LABS: ALBUMIN 3.6 GM/DL (3.2-5.2); ALKALINE PHOSPHATASE 93 U/L (45-117); ALT/SGPT 35 U/L (12-78); ANION GAP 10 MEQ/L (8-16); AST/SGOT 19 U/L (7-37); BILIRUBIN,TOTAL 0.6 MG/DL (0.2-1.0); BLOOD UREA NITROGEN 11 MG/DL (7-18); CALCIUM LEVEL 9.3 MG/DL (8.8-10.2); CARBON DIOXIDE LEVEL 28 MEQ/L (21-32); CHLORIDE LEVEL 98 MEQ/L (98-107); CPK CREATINE PHOSPHOKINASE 45 U/L (39-308); CREATININE FOR GFR 0.78 MG/DL (0.70-1.30); GLOMERULAR FILTRATION RATE > 60.0 (>49); GLUCOSE, FASTING 81 MG/DL (70-100); MB/CK RELATIVE INDEX 3.33 (< OR =4); NT-PRO BNP 3595 PG/ML (<125); SODIUM LEVEL 136 MEQ/L (136-145)
== END ==
LOC: M SFHCADAM 11:37
DX: R06.02 Shortness of breath (principal)

== ENCOUNTER → 2018-05-24 | Outpatient (CLI) | payer MEDICARE, OTHER | LOC: M ADAMS 11:42 | DX: J90 Pleural effusion, not elsewhere classified (principal); R06.02 Shortness of breath | CPT/HCPCS: 82550 ==

== ENCOUNTER → 2018-05-29 | Outpatient (REF) | payer MEDICARE, OTHER ==
[2018-05-29 12:54] LABS: BASO # 0.1 10^3/uL (0.0-0.2); BASO % 0.9 % (0.0-1.0); EOS # 0.1 10^3/uL (0.0-0.50); EOS % 0.8 % (0.0-3.0); HEMATOCRIT 38.8 % (42.0-52.0); HEMOGLOBIN 13.5 g/dl (13.5-17.5); IMMATURE GRANULOCYTE % 0.9 % (0-3.0); LYMPH % 18.4 % (24.0-44.0); MEAN CORPUSCULAR HEMOGLOBIN 29.9 pg (27.0-33.0); MEAN CORPUSCULAR HGB CONC 34.8 g/dl (32.0-36.5); MONO # 1.1 10^3/uL (0.0-0.8); MONO % 9.6 % (0.0-5.0); NEUTROPHILS # 7.7 10^3/uL (1.8-7.7); NEUTROPHILS % 69.4 % (36.0-66.0); PLATELET COUNT, AUTOMATED 458 10^3/uL (150-450); RED BLOOD COUNT 4.51 10^6/uL (4.30-6.10); RED CELL DISTRIBUTION WIDTH 15.2 % (11.5-14.5); WHITE BLOOD COUNT 11.1 10^3/uL (4.0-10.0)
[2018-05-29 13:03] LABS: ALBUMIN 4.1 GM/DL (3.2-5.2); ALBUMIN/GLOBULIN RATIO 1.78 (1.00-1.93); ALKALINE PHOSPHATASE 99 U/L (45-117); ALT/SGPT 25 U/L (12-78); ANION GAP 11 MEQ/L (8-16); AST/SGOT 13 U/L (7-37); BILIRUBIN,TOTAL 0.8 MG/DL (0.2-1.0); BLOOD UREA NITROGEN 13 MG/DL (7-18); CALCIUM LEVEL 9.5 MG/DL (8.8-10.2); CARBON DIOXIDE LEVEL 26 MEQ/L (21-32); CHLORIDE LEVEL 89 MEQ/L (98-107); CPK CREATINE PHOSPHOKINASE 87 U/L (39-308); CREATININE FOR GFR 0.72 MG/DL (0.70-1.30); GLOMERULAR FILTRATION RATE > 60.0 (>49); GLUCOSE, FASTING 79 MG/DL (70-100); MB/CK RELATIVE INDEX 2.07 (< OR =4); NT-PRO BNP 1890 PG/ML (<125); POTASSIUM SERUM 4.7 MEQ/L (3.5-5.1); SODIUM LEVEL 126 MEQ/L (136-145); TOTAL PROTEIN 6.4 GM/DL (6.4-8.2); TROPONIN I 0.07 NG/ML (< 0.10)
== END ==
LOC: M SFHCPLAZ 10:22
DX: I24.1 Dressler's syndrome (principal); I50.21 Acute systolic (congestive) heart failure
CPT/HCPCS: 82550

== ENCOUNTER → 2018-05-30 | Outpatient (REF) | payer MEDICARE, OTHER ==
[2018-05-30 19:30] LABS: ANION GAP 11 MEQ/L (8-16); BLOOD UREA NITROGEN 15 MG/DL (7-18); CARBON DIOXIDE LEVEL 27 MEQ/L (21-32); CHLORIDE LEVEL 90 MEQ/L (98-107); CREATININE FOR GFR 0.98 MG/DL (0.70-1.30); GLOMERULAR FILTRATION RATE > 60.0 (>49); GLUCOSE, FASTING 107 MG/DL (70-100); POTASSIUM SERUM 4.9 MEQ/L (3.5-5.1); SODIUM LEVEL 128 MEQ/L (136-145)
== END ==
LOC: M LABNEURO 17:43
DX: I50.21 Acute systolic (congestive) heart failure (principal)
CPT/HCPCS: 80048

== ENCOUNTER 2018-05-31 08:29 | Inpatient (IN) | payer MEDICARE, OTHER ==
[2018-05-31 09:23] LABS: BEDSIDE GLUCOSE 97 MG/DL (80-115)
[2018-05-31 09:26] LABS: BASO # 0.1 10^3/uL (0.0-0.2); BASO % 0.9 % (0.0-1.0); EOS # 0.1 10^3/uL (0.0-0.50); EOS % 0.6 % (0.0-3.0); HEMATOCRIT 36.9 % (42.0-52.0); IMMATURE GRANULOCYTE % 1.4 % (0-3.0); LYMPH # 1.6 10^3/uL (1.5-4.5); LYMPH % 14.9 % (24.0-44.0); MEAN CORPUSCULAR HEMOGLOBIN 30.4 pg (27.0-33.0); MEAN CORPUSCULAR HGB CONC 35.2 g/dl (32.0-36.5); MEAN CORPUSCULAR VOLUME 86.2 fl (80.0-96.0); MONO # 1.1 10^3/uL (0.0-0.8); MONO % 10.8 % (0.0-5.0); NEUTROPHILS # 7.5 10^3/uL (1.8-7.7); NEUTROPHILS % 71.4 % (36.0-66.0); PLATELET COUNT, AUTOMATED 350 10^3/uL (150-450); RED BLOOD COUNT 4.28 10^6/uL (4.30-6.10); RED CELL DISTRIBUTION WIDTH 15.1 % (11.5-14.5); WHITE BLOOD COUNT 10.4 10^3/uL (4.0-10.0)
[2018-05-31 09:39] LABS: INR 1.08; PROTHROMBIN TIME 14.1 SECONDS (12.1-14.4)
[2018-05-31 09:40] LABS: PARTIAL THROMBOPLASTIN TIME 27.7 SECONDS (25.4-37.6)
[2018-05-31 09:42] LABS: D-DIMER QUANT 539.7 ng/ml (<500)
[2018-05-31 09:46] LABS: LACTIC ACID SEPSIS PROTOCOL 0.7 MMOL/L (0.4-2.0)
[2018-05-31 09:56] LABS: ANION GAP 10 MEQ/L (8-16); BLOOD UREA NITROGEN 15 MG/DL (7-18); CALCIUM LEVEL 9.6 MG/DL (8.8-10.2); CARBON DIOXIDE LEVEL 26 MEQ/L (21-32); CHLORIDE LEVEL 91 MEQ/L (98-107); CPK CREATINE PHOSPHOKINASE 65 U/L (39-308); CREATININE FOR GFR 0.75 MG/DL (0.70-1.30); GLOMERULAR FILTRATION RATE > 60.0 (>49); GLUCOSE, FASTING 90 MG/DL (70-100); MB/CK RELATIVE INDEX 2.62 (< OR =4); POTASSIUM SERUM 4.5 MEQ/L (3.5-5.1); SODIUM LEVEL 127 MEQ/L (136-145); TROPONIN I 0.08 NG/ML (< 0.10)
[2018-05-31] MEDS ORDERED: ISOVUE-370 76% 100ML VIAL (Q9967) As Ordered (10:40)
[2018-05-31] MEDS: GABAPENTIN 100 MG CAP PO ×3 (16:51→23:47)
[2018-05-31] MEDS: KCL 20MEQ in NS 1000ML 1,000 ML IV (16:57)
[2018-05-31] MEDS: ACETAMINOPHEN 325 MG TAB PO (19:36)
[2018-05-31] MEDS: ATORVASTATIN 20 MG TAB PO (20:33)
[2018-06-01] MEDS: ACETAMINOPHEN 325 MG TAB PO ×3 (01:22→23:49)
[2018-06-01 05:55] LABS: HEMOGLOBIN 12.4 g/dl (13.5-17.5); MEAN CORPUSCULAR HEMOGLOBIN 29.8 pg (27.0-33.0); MEAN CORPUSCULAR HGB CONC 35.4 g/dl (32.0-36.5); MEAN CORPUSCULAR VOLUME 84.1 fl (80.0-96.0); PLATELET COUNT, AUTOMATED 320 10^3/uL (150-450); RED BLOOD COUNT 4.16 10^6/uL (4.30-6.10); RED CELL DISTRIBUTION WIDTH 15.1 % (11.5-14.5); WHITE BLOOD COUNT 9.8 10^3/uL (4.0-10.0)
[2018-06-01 06:23] LABS: ANION GAP 9 MEQ/L (8-16); BLOOD UREA NITROGEN 15 MG/DL (7-18); CALCIUM LEVEL 8.8 MG/DL (8.8-10.2); CARBON DIOXIDE LEVEL 24 MEQ/L (21-32); CHLORIDE LEVEL 96 MEQ/L (98-107); CREATININE FOR GFR 0.72 MG/DL (0.70-1.30); GLOMERULAR FILTRATION RATE > 60.0 (>49); GLUCOSE, FASTING 82 MG/DL (70-100); MAGNESIUM LEVEL 2.1 MG/DL (1.8-2.4); POTASSIUM SERUM 4.1 MEQ/L (3.5-5.1); SODIUM LEVEL 129 MEQ/L (136-145)
[2018-06-01] MEDS: ENOXAPARIN 40 MG/0.4 ML SYRINGE (J1650) SC (08:44)
[2018-06-01] MEDS: HYDROCORTISONE 100 MG/2 ML VIAL (J1720) IV (08:44)
[2018-06-01] MEDS: MULTIVITAMINS/MINERALS THERAP 1 TAB PO (08:44)
[2018-06-01] MEDS: DULoxetine 30 MG CAP (CYMBALTA) PO (08:44)
[2018-06-01] MEDS: GABAPENTIN 100 MG CAP PO ×3 (08:45→23:55)
[2018-06-01] MEDS: OMEPRAZOLE 20 MG CAP PO (08:45)
[2018-06-01] MEDS: ASPIRIN 81 MG ENTERIC TAB PO (08:45)
[2018-06-01] MEDS: DOCUSATE SODIUM 100 MG CAP PO (08:45)
[2018-06-01 08:53] LABS: CORTISOL AM 17.9 UG/DL (4.3-22.4)
[2018-06-01] MEDS: MIRALAX *UNIT DOSE* 17GM PACKET PO (11:36)
[2018-06-01] MEDS: ATORVASTATIN 20 MG TAB PO (11:37)
[2018-06-01] MEDS: DULoxetine 20 MG CAP (CYMBALTA) PO (20:27)
[2018-06-01] MEDS ORDERED: SLF 3 ML SYR IV (21:15)
[2018-06-01] MEDS: SLF 3 ML SYR IV (21:26)
[2018-06-02] MEDS: SLF 3 ML SYR IV ×3 (05:22→21:13)
[2018-06-02 05:56] LABS: HEMATOCRIT 35.1 % (42.0-52.0); HEMOGLOBIN 12.3 g/dl (13.5-17.5); MEAN CORPUSCULAR HEMOGLOBIN 30.4 pg (27.0-33.0); MEAN CORPUSCULAR VOLUME 86.7 fl (80.0-96.0); PLATELET COUNT, AUTOMATED 315 10^3/uL (150-450); RED BLOOD COUNT 4.05 10^6/uL (4.30-6.10); RED CELL DISTRIBUTION WIDTH 14.9 % (11.5-14.5); WHITE BLOOD COUNT 8.7 10^3/uL (4.0-10.0)
[2018-06-02 06:19] LABS: ANION GAP 8 MEQ/L (8-16); BLOOD UREA NITROGEN 17 MG/DL (7-18); CALCIUM LEVEL 9.5 MG/DL (8.8-10.2); CARBON DIOXIDE LEVEL 28 MEQ/L (21-32); CHLORIDE LEVEL 95 MEQ/L (98-107); CREATININE FOR GFR 0.78 MG/DL (0.70-1.30); GLOMERULAR FILTRATION RATE > 60.0 (>49); GLUCOSE, FASTING 89 MG/DL (70-100); POTASSIUM SERUM 4.2 MEQ/L (3.5-5.1); SODIUM LEVEL 131 MEQ/L (136-145)
[2018-06-02] MEDS: OMEPRAZOLE 20 MG CAP PO (09:06)
[2018-06-02] MEDS: GABAPENTIN 100 MG CAP PO ×2 (09:07→17:28)
[2018-06-02] MEDS ORDERED: LIDOCAINE 2% INJ 100 MG/5 ML SDV (FOR ANES.) As Ordered (12:10)
[2018-06-02] MEDS ORDERED: PROPOFOL 200 MG/20 ML VIAL As Ordered (12:10)
[2018-06-02] MEDS: CETACAINE SPRAY 5GM As Ordered (12:16)
[2018-06-02] MEDS: LIDOCAINE VISCOUS 2% SOLN 15ML UDC As Ordered (12:16)
[2018-06-02] MEDS ORDERED: ONDANSETRON 4MG/2ML VIAL (J2405) IV (13:15)
[2018-06-02] MEDS: LR 1,000 ML IV (13:15)
[2018-06-02] MEDS: COSYNTROPIN 0.25 MG/ML VIAL (J0834 PER 0.25MG) IV (15:28)
[2018-06-02 15:53] LABS: ALBUMIN 3.8 GM/DL (3.2-5.2); ANION GAP 10 MEQ/L (8-16); BLOOD UREA NITROGEN 17 MG/DL (7-18); CALCIUM LEVEL 9.3 MG/DL (8.8-10.2); CARBON DIOXIDE LEVEL 25 MEQ/L (21-32); CHLORIDE LEVEL 97 MEQ/L (98-107); CREATININE FOR GFR 0.69 MG/DL (0.70-1.30); GLOMERULAR FILTRATION RATE > 60.0 (>49); GLUCOSE, FASTING 104 MG/DL (70-100); PHOSPHORUS LEVEL 3.8 MG/DL (2.5-4.9); POTASSIUM SERUM 4.1 MEQ/L (3.5-5.1); SODIUM LEVEL 132 MEQ/L (136-145)
[2018-06-02] MEDS: MIDODRINE 5 MG TAB PO ×2 (16:00→17:20)
[2018-06-02 16:04] LABS: CORTISOL AM 22.2 UG/DL (4.3-22.4)
[2018-06-02] MEDS: MIRALAX *UNIT DOSE* 17GM PACKET PO (17:19)
[2018-06-02] MEDS: ENOXAPARIN 40 MG/0.4 ML SYRINGE (J1650) SC (17:19)
[2018-06-02] MEDS: ASPIRIN 81 MG ENTERIC TAB PO (17:20)
[2018-06-02] MEDS: DULoxetine 30 MG CAP (CYMBALTA) PO ×2 (17:20→20:08)
[2018-06-02] MEDS: ATORVASTATIN 20 MG TAB PO (17:20)
[2018-06-02] MEDS: DOCUSATE SODIUM 100 MG CAP PO (17:21)
[2018-06-02] MEDS: MULTIVITAMINS/MINERALS THERAP 1 TAB PO (17:21)
[2018-06-02 17:28] LABS: CORTISOL 60 MINUTES 38.6 UG/DL
[2018-06-02] MEDS: HYDROCORTISONE 100 MG/2 ML VIAL (J1720) IV (20:08)
[2018-06-03] MEDS: GABAPENTIN 100 MG CAP PO ×3 (00:58→16:54)
[2018-06-03 05:08] LABS: HEMATOCRIT 33.3 % (42.0-52.0); HEMOGLOBIN 11.9 g/dl (13.5-17.5); MEAN CORPUSCULAR HEMOGLOBIN 30.1 pg (27.0-33.0); MEAN CORPUSCULAR HGB CONC 35.7 g/dl (32.0-36.5); MEAN CORPUSCULAR VOLUME 84.3 fl (80.0-96.0); PLATELET COUNT, AUTOMATED 295 10^3/uL (150-450); RED BLOOD COUNT 3.95 10^6/uL (4.30-6.10); RED CELL DISTRIBUTION WIDTH 14.6 % (11.5-14.5); WHITE BLOOD COUNT 6.8 10^3/uL (4.0-10.0)
[2018-06-03 05:34] LABS: ANION GAP 9 MEQ/L (8-16); BLOOD UREA NITROGEN 16 MG/DL (7-18); CALCIUM LEVEL 9.1 MG/DL (8.8-10.2); CARBON DIOXIDE LEVEL 24 MEQ/L (21-32); CHLORIDE LEVEL 97 MEQ/L (98-107); CREATININE FOR GFR 0.65 MG/DL (0.70-1.30); GLOMERULAR FILTRATION RATE > 60.0 (>49); GLUCOSE, FASTING 113 MG/DL (70-100); POTASSIUM SERUM 3.9 MEQ/L (3.5-5.1); SODIUM LEVEL 130 MEQ/L (136-145)
[2018-06-03] MEDS: SLF 3 ML SYR IV ×2 (06:00→16:54)
[2018-06-03] MEDS: MIRALAX *UNIT DOSE* 17GM PACKET PO (08:38)
[2018-06-03] MEDS: ENOXAPARIN 40 MG/0.4 ML SYRINGE (J1650) SC (08:38)
[2018-06-03] MEDS: HYDROCORTISONE 100 MG/2 ML VIAL (J1720) IV (08:38)
[2018-06-03] MEDS: OMEPRAZOLE 20 MG CAP PO (08:39)
[2018-06-03] MEDS: ASPIRIN 81 MG ENTERIC TAB PO (08:39)
[2018-06-03] MEDS: MULTIVITAMINS/MINERALS THERAP 1 TAB PO (08:39)
[2018-06-03] MEDS: DULoxetine 30 MG CAP (CYMBALTA) PO ×2 (08:39→20:35)
[2018-06-03] MEDS: MIDODRINE 5 MG TAB PO ×3 (08:39→16:54)
[2018-06-03] MEDS: ATORVASTATIN 20 MG TAB PO (08:39)
[2018-06-03] MEDS: DOCUSATE SODIUM 100 MG CAP PO (08:39)
[2018-06-03] MEDS: ACETAMINOPHEN 325 MG TAB PO (20:36)
[2018-06-04] MEDS: GABAPENTIN 100 MG CAP PO ×3 (00:21→16:33)
[2018-06-04] MEDS: SLF 3 ML SYR IV ×3 (00:21→11:58)
[2018-06-04 05:27] LABS: HEMATOCRIT 33.9 % (42.0-52.0); MEAN CORPUSCULAR HEMOGLOBIN 30.5 pg (27.0-33.0); MEAN CORPUSCULAR HGB CONC 35.4 g/dl (32.0-36.5); MEAN CORPUSCULAR VOLUME 86.3 fl (80.0-96.0); PLATELET COUNT, AUTOMATED 275 10^3/uL (150-450); RED BLOOD COUNT 3.93 10^6/uL (4.30-6.10); RED CELL DISTRIBUTION WIDTH 14.6 % (11.5-14.5)
[2018-06-04 05:50] LABS: ANION GAP 10 MEQ/L (8-16); BLOOD UREA NITROGEN 16 MG/DL (7-18); CALCIUM LEVEL 9.5 MG/DL (8.8-10.2); CARBON DIOXIDE LEVEL 27 MEQ/L (21-32); CHLORIDE LEVEL 94 MEQ/L (98-107); CREATININE FOR GFR 0.72 MG/DL (0.70-1.30); GLOMERULAR FILTRATION RATE > 60.0 (>49); GLUCOSE, FASTING 87 MG/DL (70-100); POTASSIUM SERUM 3.8 MEQ/L (3.5-5.1); SODIUM LEVEL 131 MEQ/L (136-145)
[2018-06-04] MEDS: MULTIVITAMINS/MINERALS THERAP 1 TAB PO (08:48)
[2018-06-04] MEDS: ATORVASTATIN 20 MG TAB PO (08:48)
[2018-06-04] MEDS: DOCUSATE SODIUM 100 MG CAP PO (08:48)
[2018-06-04] MEDS: OMEPRAZOLE 20 MG CAP PO (08:48)
[2018-06-04] MEDS: MIDODRINE 5 MG TAB PO ×3 (08:48→16:33)
[2018-06-04] MEDS: DULoxetine 30 MG CAP (CYMBALTA) PO ×2 (08:48→20:11)
[2018-06-04] MEDS: ASPIRIN 81 MG ENTERIC TAB PO (08:48)
[2018-06-04] MEDS: ENOXAPARIN 40 MG/0.4 ML SYRINGE (J1650) SC (08:49)
[2018-06-04] MEDS: MIRALAX *UNIT DOSE* 17GM PACKET PO (08:49)
[2018-06-04] MEDS: ENOXAPARIN 80 MG/0.8 ML SYRINGE (J1650) SC (16:32)
[2018-06-05] MEDS: GABAPENTIN 100 MG CAP PO ×3 (00:22→16:14)
[2018-06-05] MEDS: SLF 3 ML SYR IV ×4 (00:23→21:04)
[2018-06-05 05:36] LABS: HEMATOCRIT 33.8 % (42.0-52.0); MEAN CORPUSCULAR HEMOGLOBIN 30.1 pg (27.0-33.0); MEAN CORPUSCULAR HGB CONC 35.5 g/dl (32.0-36.5); MEAN CORPUSCULAR VOLUME 84.7 fl (80.0-96.0); PLATELET COUNT, AUTOMATED 255 10^3/uL (150-450); RED BLOOD COUNT 3.99 10^6/uL (4.30-6.10); RED CELL DISTRIBUTION WIDTH 14.5 % (11.5-14.5)
[2018-06-05] MEDS: ENOXAPARIN 80 MG/0.8 ML SYRINGE (J1650) SC ×2 (05:41→16:14)
[2018-06-05 05:59] LABS: ANION GAP 7 MEQ/L (8-16); BLOOD UREA NITROGEN 12 MG/DL (7-18); CALCIUM LEVEL 9.2 MG/DL (8.8-10.2); CARBON DIOXIDE LEVEL 30 MEQ/L (21-32); CHLORIDE LEVEL 91 MEQ/L (98-107); CREATININE FOR GFR 0.73 MG/DL (0.70-1.30); GLOMERULAR FILTRATION RATE > 60.0 (>49); GLUCOSE, FASTING 89 MG/DL (70-100); POTASSIUM SERUM 3.8 MEQ/L (3.5-5.1); SODIUM LEVEL 128 MEQ/L (136-145)
[2018-06-05] MEDS: DULoxetine 30 MG CAP (CYMBALTA) PO ×2 (08:12→20:02)
[2018-06-05] MEDS: OMEPRAZOLE 20 MG CAP PO (08:12)
[2018-06-05] MEDS: MIDODRINE 5 MG TAB PO ×3 (08:12→16:14)
[2018-06-05] MEDS: MULTIVITAMINS/MINERALS THERAP 1 TAB PO (08:13)
[2018-06-05] MEDS: ASPIRIN 81 MG ENTERIC TAB PO (08:13)
[2018-06-05] MEDS: ATORVASTATIN 20 MG TAB PO (08:13)
[2018-06-05] MEDS: MIRALAX *UNIT DOSE* 17GM PACKET PO (08:20)
[2018-06-05] MEDS: DOCUSATE SODIUM 100 MG CAP PO (08:20)
[2018-06-06 00:07] LABS: Lyme Disease IgG/IgM Antibodie <0.91 ISR (0.00-0.90); Lyme Disease IgM Ab Quantitati <0.80 index (0.00-0.79)
[2018-06-06] MEDS: ENOXAPARIN 80 MG/0.8 ML SYRINGE (J1650) SC ×2 (04:23→16:13)
[2018-06-06] MEDS: SLF 3 ML SYR IV ×2 (04:30→12:31)
[2018-06-06 05:54] LABS: HEMATOCRIT 35.1 % (42.0-52.0); HEMOGLOBIN 12.6 g/dl (13.5-17.5); MEAN CORPUSCULAR HEMOGLOBIN 30.1 pg (27.0-33.0); MEAN CORPUSCULAR HGB CONC 35.9 g/dl (32.0-36.5); PLATELET COUNT, AUTOMATED 260 10^3/uL (150-450); RED BLOOD COUNT 4.18 10^6/uL (4.30-6.10); RED CELL DISTRIBUTION WIDTH 14.7 % (11.5-14.5); WHITE BLOOD COUNT 6.7 10^3/uL (4.0-10.0)
[2018-06-06 06:20] LABS: ANION GAP 11 MEQ/L (8-16); BLOOD UREA NITROGEN 13 MG/DL (7-18); CALCIUM LEVEL 9.4 MG/DL (8.8-10.2); CARBON DIOXIDE LEVEL 26 MEQ/L (21-32); CHLORIDE LEVEL 92 MEQ/L (98-107); CREATININE FOR GFR 0.62 MG/DL (0.70-1.30); GLOMERULAR FILTRATION RATE > 60.0 (>49); GLUCOSE, FASTING 87 MG/DL (70-100); SODIUM LEVEL 129 MEQ/L (136-145)
[2018-06-06] MEDS: MIRALAX *UNIT DOSE* 17GM PACKET PO (09:00)
[2018-06-06] MEDS: OMEPRAZOLE 20 MG CAP PO (09:30)
[2018-06-06] MEDS: MULTIVITAMINS/MINERALS THERAP 1 TAB PO (09:30)
[2018-06-06] MEDS: GABAPENTIN 100 MG CAP PO ×3 (09:30→16:12)
[2018-06-06] MEDS: DOCUSATE SODIUM 100 MG CAP PO (09:30)
[2018-06-06] MEDS: DULoxetine 30 MG CAP (CYMBALTA) PO (09:30)
[2018-06-06] MEDS: ATORVASTATIN 20 MG TAB PO (09:30)
[2018-06-06] MEDS: ASPIRIN 81 MG ENTERIC TAB PO (09:30)
[2018-06-06] MEDS: MIDODRINE 5 MG TAB PO ×3 (09:30→16:13)
[2018-06-08 08:08] LABS: ALDOSTERONE 17.5 ng/dL (0.0-30.0)
[2018-06-08 08:08] LABS: ADRENOCORTICOTROPHIC HORMONE 32.8 pg/mL (7.2-63.3)
== END 2018-06-06 17:45 | disposition home or self-care (01) | DRG 74 ==
LOC: M ED 08:29 → M ED INP 13:15 → M PCU 16:12
PROC: B246ZZ4 Ultrasonography of Right and Left Heart, Transesophageal (ICD-10-PCS; principal; 2018-06-02 12:00)
DX: G62.0 Drug-induced polyneuropathy (principal); C83.50 Lymphoblastic (diffuse) lymphoma, unspecified site; I50.42 Chronic combined systolic (congestive) and diastolic (congestive) heart failure; E22.2 Syndrome of inappropriate secretion of antidiuretic hormone; E53.8 Deficiency of other specified B group vitamins; K59.00 Constipation, unspecified; E78.5 Hyperlipidemia, unspecified; T45.1X5A Adverse effect of antineoplastic and immunosuppressive drugs, initial encounter; K21.9 Gastro-esophageal reflux disease without esophagitis; I95.1 Orthostatic hypotension; I34.8 Other nonrheumatic mitral valve disorders; I25.2 Old myocardial infarction; Z79.82 Long term (current) use of aspirin; Z79.899 Other long term (current) drug therapy

== ENCOUNTER 2018-06-08 09:41 | Inpatient (IN) | payer MEDICARE, OTHER ==
[2018-06-08 10:23] LABS: BASO # 0.1 10^3/uL (0.0-0.2); EOS # 0.1 10^3/uL (0.0-0.50); EOS % 2.4 % (0.0-3.0); HEMATOCRIT 36.5 % (42.0-52.0); HEMOGLOBIN 12.7 g/dl (13.5-17.5); IMMATURE GRANULOCYTE % 0.7 % (0-3.0); LYMPH # 1.1 10^3/uL (1.5-4.5); MEAN CORPUSCULAR HEMOGLOBIN 30.1 pg (27.0-33.0); MEAN CORPUSCULAR HGB CONC 34.8 g/dl (32.0-36.5); MEAN CORPUSCULAR VOLUME 86.5 fl (80.0-96.0); MONO % 17.3 % (0.0-5.0); NEUTROPHILS # 3.4 10^3/uL (1.8-7.7); NEUTROPHILS % 59.6 % (36.0-66.0); PLATELET COUNT, AUTOMATED 230 10^3/uL (150-450); RED BLOOD COUNT 4.22 10^6/uL (4.30-6.10); RED CELL DISTRIBUTION WIDTH 14.6 % (11.5-14.5); VENOUS BASE EXCESS 2.5 (-2.0-2.0); VENOUS HCO3 29.1 MEQ/L (23.0-27.0); VENOUS O2 SATURATION 49.8 % (60.0-80.0); VENOUS PARTIAL PRESSURE CO2 53.6 mmHg (38.0-50.0); VENOUS PARTIAL PRESSURE O2 27.3 mmHg (30.0-50.0); VENOUS PH 7.353 UNITS (7.330-7.430); VENOUS STANDARD HCO3 25.5 MEQ/L; VENOUS TOTAL CO2 30.8 MEQ/L (24.0-28.0); WHITE BLOOD COUNT 5.7 10^3/uL (4.0-10.0)
[2018-06-08 10:35] LABS: PARTIAL THROMBOPLASTIN TIME 30.8 SECONDS (25.4-37.6)
[2018-06-08 10:55] LABS: ANION GAP 6 MEQ/L (8-16); BLOOD UREA NITROGEN 11 MG/DL (7-18); CALCIUM LEVEL 9.5 MG/DL (8.8-10.2); CARBON DIOXIDE LEVEL 29 MEQ/L (21-32); CHLORIDE LEVEL 93 MEQ/L (98-107); CPK CREATINE PHOSPHOKINASE 32 U/L (39-308); CREATININE FOR GFR 0.74 MG/DL (0.70-1.30); GLOMERULAR FILTRATION RATE > 60.0 (>49); GLUCOSE, FASTING 95 MG/DL (70-100); MAGNESIUM LEVEL 1.9 MG/DL (1.8-2.4); MB/CK RELATIVE INDEX 6.56 (< OR =4); SODIUM LEVEL 128 MEQ/L (136-145); TROPONIN I 0.07 NG/ML (< 0.10)
[2018-06-08 11:17] LABS: ALBUMIN 4.1 GM/DL (3.2-5.2); ALBUMIN/GLOBULIN RATIO 1.71 (1.00-1.93); ALKALINE PHOSPHATASE 87 U/L (45-117); ALT/SGPT 23 U/L (12-78); AST/SGOT 15 U/L (7-37); BILIRUBIN,DIRECT 0.3 MG/DL (0.0-0.2); BILIRUBIN,TOTAL 0.8 MG/DL (0.2-1.0); FREE T4 1.29 NG/DL (0.76-1.46); TOTAL PROTEIN 6.5 GM/DL (6.4-8.2)
[2018-06-08 11:35] LABS: OSMOLALITY SERUM 266 MOSM/KG (280-301)
[2018-06-08 11:55] LABS: CORTISOL BASELINE 30.1 UG/DL (4.3-22.4); PROLACTIN 10.7 NG/ML (2.1-17.7)
[2018-06-08 16:05] LABS: OSMOLALITY URINE 387 MOSM/KG (500-800)
[2018-06-08 16:27] LABS: SODIUM,RANDOM URINE 65 MEQ/L
[2018-06-08] MEDS: levETIRAcetam INJection 1,000 MG in D5W 100 ML IV (17:00)
[2018-06-08] MEDS ORDERED: ONDANSETRON 4MG/2ML VIAL (J2405) IV (17:00)
[2018-06-08] MEDS ORDERED: PERCOCET 5MG/325MG TAB PO (17:00)
[2018-06-08] MEDS: ACETAMINOPHEN TAB 650MG DOSE (2X325MG) PO (18:41)
[2018-06-08] MEDS: NS 1,000 ML IV (19:00)
[2018-06-08] MEDS ORDERED: ENOXAPARIN 80 MG/0.8 ML SYRINGE (J1650) SC (19:30)
[2018-06-08] MEDS: levETIRAcetam 250MG TABLET (KEPPRA) PO (23:29)
[2018-06-08] MEDS: GABAPENTIN 100 MG CAP PO (23:30)
[2018-06-08] MEDS: ENOXAPARIN 80 MG/0.8 ML SYRINGE (J1650) SC (23:31)
[2018-06-09] MEDS: OMEPRAZOLE 20 MG CAP PO ×2 (00:05→08:39)
[2018-06-09 05:52] LABS: BASO # 0.1 10^3/uL (0.0-0.2); BASO % 0.8 % (0.0-1.0); EOS # 0.2 10^3/uL (0.0-0.50); EOS % 3.2 % (0.0-3.0); HEMATOCRIT 35.6 % (42.0-52.0); HEMOGLOBIN 12.4 g/dl (13.5-17.5); IMMATURE GRANULOCYTE % 0.2 % (0-3.0); LYMPH # 1.9 10^3/uL (1.5-4.5); LYMPH % 29.7 % (24.0-44.0); MEAN CORPUSCULAR HEMOGLOBIN 29.7 pg (27.0-33.0); MEAN CORPUSCULAR HGB CONC 34.8 g/dl (32.0-36.5); MEAN CORPUSCULAR VOLUME 85.2 fl (80.0-96.0); MONO # 1.1 10^3/uL (0.0-0.8); MONO % 17.2 % (0.0-5.0); NEUTROPHILS # 3.1 10^3/uL (1.8-7.7); NEUTROPHILS % 48.9 % (36.0-66.0); PLATELET COUNT, AUTOMATED 237 10^3/uL (150-450); RED BLOOD COUNT 4.18 10^6/uL (4.30-6.10); RED CELL DISTRIBUTION WIDTH 14.5 % (11.5-14.5); WHITE BLOOD COUNT 6.3 10^3/uL (4.0-10.0)
[2018-06-09 06:23] LABS: ALBUMIN 3.8 GM/DL (3.2-5.2); ALBUMIN/GLOBULIN RATIO 1.46 (1.00-1.93); ALKALINE PHOSPHATASE 85 U/L (45-117); ALT/SGPT 31 U/L (12-78); ANION GAP 8 MEQ/L (8-16); AST/SGOT 18 U/L (7-37); BILIRUBIN,TOTAL 0.7 MG/DL (0.2-1.0); BLOOD UREA NITROGEN 13 MG/DL (7-18); CALCIUM LEVEL 9.5 MG/DL (8.8-10.2); CARBON DIOXIDE LEVEL 28 MEQ/L (21-32); CHLORIDE LEVEL 95 MEQ/L (98-107); CREATININE FOR GFR 0.76 MG/DL (0.70-1.30); GLOMERULAR FILTRATION RATE > 60.0 (>49); GLUCOSE, FASTING 82 MG/DL (70-100); POTASSIUM SERUM 4.1 MEQ/L (3.5-5.1); SODIUM LEVEL 131 MEQ/L (136-145); TOTAL PROTEIN 6.4 GM/DL (6.4-8.2)
[2018-06-09] MEDS: MIDODRINE 5 MG TAB PO ×3 (08:40→16:57)
[2018-06-09] MEDS: GABAPENTIN 100 MG CAP PO ×3 (08:40→21:29)
[2018-06-09] MEDS: levETIRAcetam 250MG TABLET (KEPPRA) PO ×2 (08:40→21:29)
[2018-06-09] MEDS: ATORVASTATIN 20 MG TAB PO (08:40)
[2018-06-09] MEDS: DOCUSATE SODIUM 100 MG CAP PO (08:40)
[2018-06-09] MEDS: ENOXAPARIN 80 MG/0.8 ML SYRINGE (J1650) SC ×2 (11:59→22:09)
[2018-06-09 15:56] LABS: BEDSIDE GLUCOSE 95 MG/DL (80-115)
[2018-06-09] MEDS: MIRALAX *UNIT DOSE* 17GM PACKET PO (16:57)
[2018-06-09] MEDS: SENOKOT S TAB PO (21:29)
[2018-06-09] MEDS: ACETAMINOPHEN TAB 650MG DOSE (2X325MG) PO (21:35)
[2018-06-10 05:47] LABS: ANION GAP 6 MEQ/L (8-16); BLOOD UREA NITROGEN 16 MG/DL (7-18); CALCIUM LEVEL 9.2 MG/DL (8.8-10.2); CARBON DIOXIDE LEVEL 30 MEQ/L (21-32); CHLORIDE LEVEL 99 MEQ/L (98-107); GLOMERULAR FILTRATION RATE > 60.0 (>49); GLUCOSE, FASTING 94 MG/DL (70-100); POTASSIUM SERUM 4.1 MEQ/L (3.5-5.1); SODIUM LEVEL 135 MEQ/L (136-145)
[2018-06-10] MEDS: SENOKOT S TAB PO ×2 (08:36→20:30)
[2018-06-10] MEDS: levETIRAcetam 250MG TABLET (KEPPRA) PO ×2 (08:36→20:30)
[2018-06-10] MEDS: OMEPRAZOLE 20 MG CAP PO (08:36)
[2018-06-10] MEDS: MIRALAX *UNIT DOSE* 17GM PACKET PO (08:37)
[2018-06-10] MEDS: ATORVASTATIN 20 MG TAB PO (08:37)
[2018-06-10] MEDS: MIDODRINE 5 MG TAB PO ×3 (08:37→16:27)
[2018-06-10] MEDS: GABAPENTIN 100 MG CAP PO ×3 (08:43→20:30)
[2018-06-10] MEDS: ENOXAPARIN 80 MG/0.8 ML SYRINGE (J1650) SC ×2 (11:59→22:17)
[2018-06-10] MEDS ORDERED: SLF 3 ML SYR IV (13:45)
[2018-06-10] MEDS: SLF 3 ML SYR IV ×2 (14:00→21:06)
[2018-06-10] MEDS: FLUDROCORTISONE ACETATE 0.1 MG TAB PO (14:59)
[2018-06-10] MEDS: BISACODYL 10 MG SUPP PR (17:40)
[2018-06-11] MEDS: ACETAMINOPHEN TAB 650MG DOSE (2X325MG) PO ×2 (00:12→16:33)
[2018-06-11] MEDS: SLF 3 ML SYR IV ×3 (05:22→21:20)
[2018-06-11 05:36] LABS: HEMATOCRIT 35.3 % (42.0-52.0); HEMOGLOBIN 12.2 g/dl (13.5-17.5); MEAN CORPUSCULAR HGB CONC 34.6 g/dl (32.0-36.5); MEAN CORPUSCULAR VOLUME 86.7 fl (80.0-96.0); PLATELET COUNT, AUTOMATED 229 10^3/uL (150-450); RED BLOOD COUNT 4.07 10^6/uL (4.30-6.10); RED CELL DISTRIBUTION WIDTH 14.7 % (11.5-14.5); WHITE BLOOD COUNT 6.8 10^3/uL (4.0-10.0)
[2018-06-11 06:03] LABS: ANION GAP 8 MEQ/L (8-16); BLOOD UREA NITROGEN 18 MG/DL (7-18); CALCIUM LEVEL 9.7 MG/DL (8.8-10.2); CARBON DIOXIDE LEVEL 29 MEQ/L (21-32); CHLORIDE LEVEL 101 MEQ/L (98-107); CREATININE FOR GFR 0.75 MG/DL (0.70-1.30); GLOMERULAR FILTRATION RATE > 60.0 (>49); GLUCOSE, FASTING 90 MG/DL (70-100); POTASSIUM SERUM 3.8 MEQ/L (3.5-5.1); SODIUM LEVEL 138 MEQ/L (136-145)
[2018-06-11] MEDS: levETIRAcetam 250MG TABLET (KEPPRA) PO ×2 (08:15→20:27)
[2018-06-11] MEDS: MIRALAX *UNIT DOSE* 17GM PACKET PO (08:15)
[2018-06-11] MEDS: SENOKOT S TAB PO ×2 (08:15→20:27)
[2018-06-11] MEDS: GABAPENTIN 100 MG CAP PO ×3 (08:15→20:27)
[2018-06-11] MEDS: ATORVASTATIN 20 MG TAB PO (08:15)
[2018-06-11] MEDS: OMEPRAZOLE 20 MG CAP PO (08:16)
[2018-06-11] MEDS: MIDODRINE 5 MG TAB PO ×3 (08:16→16:32)
[2018-06-11] MEDS: FLUDROCORTISONE ACETATE 0.1 MG TAB PO (08:16)
[2018-06-11] MEDS: ENOXAPARIN 80 MG/0.8 ML SYRINGE (J1650) SC ×2 (12:18→22:30)
[2018-06-11] MEDS: MOM 30ML SUSPENSION UDC PO (18:18)
[2018-06-12] MEDS: ACETAMINOPHEN TAB 650MG DOSE (2X325MG) PO ×2 (03:52→11:58)
[2018-06-12] MEDS: SLF 3 ML SYR IV ×3 (05:08→22:00)
[2018-06-12 05:40] LABS: ANION GAP 7 MEQ/L (8-16); BLOOD UREA NITROGEN 14 MG/DL (7-18); CALCIUM LEVEL 8.9 MG/DL (8.8-10.2); CARBON DIOXIDE LEVEL 30 MEQ/L (21-32); CHLORIDE LEVEL 101 MEQ/L (98-107); CREATININE FOR GFR 0.81 MG/DL (0.70-1.30); GLOMERULAR FILTRATION RATE > 60.0 (>49); GLUCOSE, FASTING 90 MG/DL (70-100); SODIUM LEVEL 138 MEQ/L (136-145)
[2018-06-12] MEDS: MIDODRINE 5 MG TAB PO ×3 (07:51→15:51)
[2018-06-12] MEDS: FLUDROCORTISONE ACETATE 0.1 MG TAB PO (09:34)
[2018-06-12] MEDS: ATORVASTATIN 20 MG TAB PO (09:34)
[2018-06-12] MEDS: MIRALAX *UNIT DOSE* 17GM PACKET PO (09:35)
[2018-06-12] MEDS: SENOKOT S TAB PO ×2 (09:35→20:08)
[2018-06-12] MEDS: GABAPENTIN 100 MG CAP PO ×3 (09:35→20:08)
[2018-06-12] MEDS: OMEPRAZOLE 20 MG CAP PO (09:35)
[2018-06-12] MEDS: ENOXAPARIN 80 MG/0.8 ML SYRINGE (J1650) SC ×2 (10:48→22:51)
[2018-06-13] MEDS: ACETAMINOPHEN TAB 650MG DOSE (2X325MG) PO ×2 (04:07→09:14)
[2018-06-13] MEDS: SLF 3 ML SYR IV ×2 (06:00→12:41)
[2018-06-13 06:31] LABS: ANION GAP 5 MEQ/L (8-16); BLOOD UREA NITROGEN 14 MG/DL (7-18); CARBON DIOXIDE LEVEL 32 MEQ/L (21-32); CHLORIDE LEVEL 98 MEQ/L (98-107); CREATININE FOR GFR 0.79 MG/DL (0.70-1.30); GLOMERULAR FILTRATION RATE > 60.0 (>49); GLUCOSE, FASTING 93 MG/DL (70-100); SODIUM LEVEL 135 MEQ/L (136-145)
[2018-06-13] MEDS: MIRALAX *UNIT DOSE* 17GM PACKET PO (09:00)
[2018-06-13] MEDS: OMEPRAZOLE 20 MG CAP PO (09:13)
[2018-06-13] MEDS: ATORVASTATIN 20 MG TAB PO (09:13)
[2018-06-13] MEDS: MIDODRINE 5 MG TAB PO ×3 (09:14→16:00)
[2018-06-13] MEDS: SENOKOT S TAB PO (09:14)
[2018-06-13] MEDS: FLUDROCORTISONE ACETATE 0.1 MG TAB PO (09:15)
[2018-06-13] MEDS: GABAPENTIN 100 MG CAP PO ×2 (09:15→16:00)
[2018-06-13] MEDS: ENOXAPARIN 80 MG/0.8 ML SYRINGE (J1650) SC (11:58)
== END 2018-06-13 16:23 | disposition home or self-care (01) | DRG 281 ==
LOC: M ED 09:41 → M ED INP 16:58 → M PCU 23:06
PROVIDERS: Family Medicine
DX: I95.1 Orthostatic hypotension (principal); I21.4 Non-ST elevation (NSTEMI) myocardial infarction; C83.00 Small cell B-cell lymphoma, unspecified site; E22.2 Syndrome of inappropriate secretion of antidiuretic hormone; I12.9 Hypertensive chronic kidney disease with stage 1 through stage 4 chronic kidney disease, or unspecified chronic kidney disease; K21.9 Gastro-esophageal reflux disease without esophagitis; N18.3 Chronic kidney disease, stage 3 (moderate); E78.5 Hyperlipidemia, unspecified; E53.8 Deficiency of other specified B group vitamins; T45.1X5A Adverse effect of antineoplastic and immunosuppressive drugs, initial encounter; R56.9 Unspecified convulsions; R91.1 Solitary pulmonary nodule; K59.09 Other constipation; G47.61 Periodic limb movement disorder; G62.0 Drug-induced polyneuropathy; Z79.899 Other long term (current) drug therapy; Z79.82 Long term (current) use of aspirin; Z87.891 Personal history of nicotine dependence

== ENCOUNTER → 2018-06-16 | Outpatient (REF) | payer MEDICARE, OTHER ==
[2018-06-16 19:17] LABS: BASO # 0.1 10^3/uL (0.0-0.2); BASO % 1.2 % (0.0-1.0); EOS # 0.2 10^3/uL (0.0-0.50); EOS % 3.9 % (0.0-3.0); HEMATOCRIT 35.2 % (42.0-52.0); HEMOGLOBIN 11.7 g/dl (13.5-17.5); IMMATURE GRANULOCYTE % 0.2 % (0-3.0); LYMPH % 39.5 % (24.0-44.0); MEAN CORPUSCULAR HEMOGLOBIN 29.5 pg (27.0-33.0); MEAN CORPUSCULAR HGB CONC 33.2 g/dl (32.0-36.5); MEAN CORPUSCULAR VOLUME 88.9 fl (80.0-96.0); MONO # 1.1 10^3/uL (0.0-0.8); MONO % 20.7 % (0.0-5.0); NEUTROPHILS # 1.8 10^3/uL (1.8-7.7); NEUTROPHILS % 34.5 % (36.0-66.0); PLATELET COUNT, AUTOMATED 271 10^3/uL (150-450); RED BLOOD COUNT 3.96 10^6/uL (4.30-6.10); RED CELL DISTRIBUTION WIDTH 14.9 % (11.5-14.5); WHITE BLOOD COUNT 5.1 10^3/uL (4.0-10.0)
[2018-06-16 19:22] LABS: HEMATOCRIT 35.2 % (42.0-52.0)
[2018-06-16 19:34] LABS: ALBUMIN 3.9 GM/DL (3.2-5.2); ALBUMIN/GLOBULIN RATIO 1.86 (1.00-1.93); ALKALINE PHOSPHATASE 90 U/L (45-117); ALT/SGPT 44 U/L (12-78); ANION GAP 9 MEQ/L (8-16); AST/SGOT 18 U/L (7-37); BILIRUBIN,TOTAL 0.6 MG/DL (0.2-1.0); BLOOD UREA NITROGEN 17 MG/DL (7-18); CALCIUM LEVEL 9.4 MG/DL (8.8-10.2); CARBON DIOXIDE LEVEL 29 MEQ/L (21-32); CHLORIDE LEVEL 103 MEQ/L (98-107); CREATININE FOR GFR 0.79 MG/DL (0.70-1.30); GLOMERULAR FILTRATION RATE > 60.0 (>49); GLUCOSE, FASTING 88 MG/DL (70-100); POTASSIUM SERUM 4.3 MEQ/L (3.5-5.1); PSA SCREENING 0.63 NG/ML (< 4.0); SODIUM LEVEL 141 MEQ/L (136-145)
[2018-06-16 19:40] LABS: PTH INTACT 18.5 PG/ML (18.5-88.0); TOTAL 25(OH) VITAMIN D 42.7 NG/ML (30.0-100.0)
[2018-06-16 20:28] LABS: ESTIMATED AVERAGE GLUCOSE 103 MG/DL (60-110); HEMOGLOBIN A1c 5.2 %
[2018-06-19 14:37] LABS: H PYLORI SERUM QUANT IgG ABY 0.12 (0.00-0.79)
[2018-06-20 10:43] LABS: PRETREATED FOLATE FOR RBCFOL 15.5 NG/ML; RBC FOLATE 924.7 NG/ML (280-791)
== END ==
LOC: M SFHCADAM 11:38
DX: E87.1 Hypo-osmolality and hyponatremia (principal); E53.8 Deficiency of other specified B group vitamins; N18.2 Chronic kidney disease, stage 2 (mild); R73.01 Impaired fasting glucose; Z87.19 Personal history of other diseases of the digestive system; I50.21 Acute systolic (congestive) heart failure; Z12.5 Encounter for screening for malignant neoplasm of prostate
CPT/HCPCS: 82607

== ENCOUNTER → 2018-07-11 | Outpatient (REF) | payer MEDICARE, OTHER ==
[2018-07-11 13:39] LABS: BASO # 0.1 10^3/uL (0.0-0.2); BASO % 1.1 % (0.0-1.0); EOS # 0.2 10^3/uL (0.0-0.50); EOS % 3.4 % (0.0-3.0); HEMATOCRIT 37.2 % (42.0-52.0); HEMOGLOBIN 12.5 g/dl (13.5-17.5); IMMATURE GRANULOCYTE % 0.6 % (0-3.0); LYMPH # 1.6 10^3/uL (1.5-4.5); LYMPH % 33.4 % (24.0-44.0); MEAN CORPUSCULAR HEMOGLOBIN 30.9 pg (27.0-33.0); MEAN CORPUSCULAR HGB CONC 33.6 g/dl (32.0-36.5); MEAN CORPUSCULAR VOLUME 92.1 fl (80.0-96.0); MONO # 0.7 10^3/uL (0.0-0.8); MONO % 14.5 % (0.0-5.0); NEUTROPHILS # 2.2 10^3/uL (1.8-7.7); PLATELET COUNT, AUTOMATED 290 10^3/uL (150-450); RED BLOOD COUNT 4.04 10^6/uL (4.30-6.10); RED CELL DISTRIBUTION WIDTH 15.8 % (11.5-14.5); WHITE BLOOD COUNT 4.7 10^3/uL (4.0-10.0)
[2018-07-11 14:34] LABS: ALBUMIN 3.9 GM/DL (3.2-5.2); ALBUMIN/GLOBULIN RATIO 1.86 (1.00-1.93); ALKALINE PHOSPHATASE 85 U/L (45-117); ALT/SGPT 22 U/L (12-78); ANION GAP 8 MEQ/L (8-16); AST/SGOT 20 U/L (7-37); BILIRUBIN,TOTAL 0.5 MG/DL (0.2-1.0); BLOOD UREA NITROGEN 12 MG/DL (7-18); CALCIUM LEVEL 9.6 MG/DL (8.8-10.2); CARBON DIOXIDE LEVEL 31 MEQ/L (21-32); CHLORIDE LEVEL 100 MEQ/L (98-107); CREATININE FOR GFR 0.64 MG/DL (0.70-1.30); GLOMERULAR FILTRATION RATE > 60.0 (>49); GLUCOSE, FASTING 118 MG/DL (70-100); MAGNESIUM LEVEL 2.1 MG/DL (1.8-2.4); NT-PRO BNP 2658 PG/ML (<125); POTASSIUM SERUM 4.1 MEQ/L (3.5-5.1); SODIUM LEVEL 139 MEQ/L (136-145)
== END ==
LOC: M LABDRWAD 12:45
DX: E87.1 Hypo-osmolality and hyponatremia (principal)
CPT/HCPCS: 83735

== ENCOUNTER → 2018-07-21 | Outpatient (REF) | payer MEDICARE, OTHER ==
[2018-07-31 10:08] LABS: ANA (HEP2) Negative (.); ANTI HU ANTIBODY <1:10 titer (.); ANTI MAG LEVEL <1:10 titer (.); CYCLIC CITRULLINATED PEPTIDE 3 units (0-19); SSA SJOGRENS A <0.2 AI (0.0-0.9); SSB SJOGRENS B <0.2 AI (0.0-0.9); VITAMIN E(ALPHA TOCOPHEROL) 9.7 mg/L (9.0-29.0)
== END ==
LOC: M LABDRWAD 19:23
DX: G62.9 Polyneuropathy, unspecified (principal)
CPT/HCPCS: 84446

== ENCOUNTER → 2018-07-21 | Outpatient (REF) | payer MEDICARE, OTHER | LOC: M SFHCPLAZ 17:35 | DX: E87.1 Hypo-osmolality and hyponatremia (principal); Z53.8 Procedure and treatment not carried out for other reasons ==

== ENCOUNTER → 2018-07-24 | Outpatient (REF) | payer MEDICARE, OTHER | LOC: M LAB REF 15:34 | DX: D23.5 Other benign neoplasm of skin of trunk (principal) | CPT/HCPCS: 88305; 88313 ==

== ENCOUNTER → 2018-09-01 | Outpatient (REF) | payer MEDICARE, OTHER ==
[~2018-09-01] MED LIST changes: +ACET1TAB55 PO; +ATOR1TAB21 PO; +ATOR40TA75 PO; +CARV3.12 PO; +COLA100C5 PO; +DULO1CAP3 PO; +ENOX80IN3 SC; +FLUD0.1T PO; +GABA-1171 PO; +GABA-845 PO; +MIDO10TA PO; +MIDO5TA PO; +MIRA3350 PO; +NORT10SO PO; +OXYC-517 PO; +OXYC1SOL3 PO; +PREG50CA PO; +VITA-193 PO; +VITMTA PO
[2018-09-01 15:36] LABS: BASO # 0.1 10^3/uL (0.0-0.2); BASO % 0.7 % (0.0-1.0); EOS # 0.2 10^3/uL (0.0-0.50); EOS % 2.4 % (0.0-3.0); HEMATOCRIT 34.6 % (42.0-52.0); HEMOGLOBIN 11.9 g/dl (13.5-17.5); LYMPH # 1.8 10^3/uL (1.5-4.5); LYMPH % 19.8 % (24.0-44.0); MEAN CORPUSCULAR HEMOGLOBIN 31.2 pg (27.0-33.0); MEAN CORPUSCULAR HGB CONC 34.4 g/dl (32.0-36.5); MEAN CORPUSCULAR VOLUME 90.6 fl (80.0-96.0); MONO # 0.9 10^3/uL (0.0-0.8); MONO % 9.5 % (0.0-5.0); NEUTROPHILS # 6.1 10^3/uL (1.8-7.7); NEUTROPHILS % 67.4 % (36.0-66.0); PLATELET COUNT, AUTOMATED 353 10^3/uL (150-450); RED BLOOD COUNT 3.82 10^6/uL (4.30-6.10)
[2018-09-01 15:38] LABS: AMORPHOUS SEDIMENT MODERATE (NEGATIVE); APPEARANCE, URINE CLOUDY (CLEAR); BACTERIA, URINE AUTO NEGATIVE (NEGATIVE); BILIRUBIN, URINE AUTO NEGATIVE (NEGATIVE); BLOOD, URINE BLOOD 3+ (NEGATIVE); COLOR, URINE AMBER (YELLOW); GLUCOSE, URINE (UA) AUTO NEGATIVE (NEGATIVE); KETONE, URINE AUTO NEGATIVE (NEGATIVE); LEUKOCYTE ESTERASE, URINE AUTO NEGATIVE (NEGATIVE); MUCUS, URINE SMALL (NEGATIVE); NITRITE, URINE AUTO NEGATIVE (NEGATIVE); PROTEIN, URINE AUTO 1+ mg/dL (NEGATIVE); RBC, URINE AUTO TNTC /HPF (0-3); SPECIFIC GRAVITY URINE AUTO 1.014 (1.002-1.035); SQUAMOUS EPITHELIAL CELL UR AU 1 /HPF (0-6); UROBILINOGEN, URINE AUTO 0.2 mg/dL (0.0-2.0); WBC, URINE AUTO 4 /HPF (0-3)
[2018-09-01 15:46] LABS: INR 1.14; PROTHROMBIN TIME 14.8 SECONDS (12.1-14.4)
[2018-09-01 15:47] LABS: PARTIAL THROMBOPLASTIN TIME 31.5 SECONDS (25.4-37.6)
[2018-09-01 15:56] LABS: ALBUMIN 3.9 GM/DL (3.2-5.2); ALT/SGPT 18 U/L (12-78); AMYLASE 26 U/L (25-115); BILIRUBIN,TOTAL 0.7 MG/DL (0.2-1.0); BLOOD UREA NITROGEN 15 MG/DL (7-18); CALCIUM LEVEL 9.2 MG/DL (8.8-10.2); CARBON DIOXIDE LEVEL 28 MEQ/L (21-32); CHLORIDE LEVEL 99 MEQ/L (98-107); GLOMERULAR FILTRATION RATE > 60.0 (>49); GLUCOSE, FASTING 90 MG/DL (70-100); POTASSIUM SERUM 4.2 MEQ/L (3.5-5.1); SODIUM LEVEL 134 MEQ/L (136-145)
== END ==
LOC: M SFHCPLAZ 13:54
PROVIDERS: ATTEND Family Medicine
DX: R10.13 Epigastric pain (principal); R31.0 Gross hematuria; I38 Endocarditis, valve unspecified; Z12.5 Encounter for screening for malignant neoplasm of prostate
CPT/HCPCS: 36415; 80053; 81001; 82150; 85025; 85610; 85730; 86677; 87086; G0103; G0463

== ENCOUNTER → 2018-09-07 | Outpatient (REF) | payer MEDICARE, OTHER | LOC: M SFHCPLAZ 19:30 | PROVIDERS: ATTEND Family Medicine | DX: R31.29 Other microscopic hematuria (principal) ==

== ENCOUNTER → 2018-09-11 | Outpatient (CLI) | payer MEDICARE, OTHER ==
[2018-09-11 13:18] LABS: BASO # 0.1 10^3/uL (0.0-0.2); BASO % 0.9 % (0.0-1.0); EOS # 0.2 10^3/uL (0.0-0.50); LYMPH # 1.6 10^3/uL (1.5-4.5); LYMPH % 15.7 % (24.0-44.0); MEAN CORPUSCULAR HEMOGLOBIN 30.1 pg (27.0-33.0); MEAN CORPUSCULAR HGB CONC 32.5 g/dl (32.0-36.5); MEAN CORPUSCULAR VOLUME 92.6 fl (80.0-96.0); MONO # 0.7 10^3/uL (0.0-0.8); MONO % 6.9 % (0.0-5.0); NEUTROPHILS # 7.4 10^3/uL (1.8-7.7); NEUTROPHILS % 74.2 % (36.0-66.0); PLATELET COUNT, AUTOMATED 414 10^3/uL (150-450); RED BLOOD COUNT 4.32 10^6/uL (4.30-6.10)
[2018-09-11 15:29] LABS: ALBUMIN 4.1 GM/DL (3.2-5.2); ALT/SGPT 21 U/L (12-78); BILIRUBIN,TOTAL 0.6 MG/DL (0.2-1.0); BLOOD UREA NITROGEN 14 MG/DL (7-18); CALCIUM LEVEL 9.9 MG/DL (8.8-10.2); CARBON DIOXIDE LEVEL 29 MEQ/L (21-32); CHLORIDE LEVEL 103 MEQ/L (98-107); CREATININE FOR GFR 0.87 MG/DL (0.70-1.30); GLOMERULAR FILTRATION RATE > 60.0 (>49); GLUCOSE, FASTING 82 MG/DL (70-100); IMMUNOGLOBULIN A < 7.8 MG/DL (70-400); IMMUNOGLOBULIN G 88 MG/DL (681-1648); LDH LACTATE DEHYDROGENASE 185 U/L (87-241); POTASSIUM SERUM 4.7 MEQ/L (3.5-5.1); SODIUM LEVEL 140 MEQ/L (136-145); TOTAL PROTEIN 6.4 GM/DL (6.4-8.2)
[2018-09-12 13:01] LABS: ALPHA-1-GLOBULIN % 5.7 % (2.9-4.9); ALPHA-2-GLOBULINS % 15.6 % (7.1-11.8); BETA-1-GLOBULINS % 6.9 % (4.7-7.2); BETA-2-GLOBULINS % 4.3 % (3.2-6.5); GAMMA GLOBULIN % 2.5 % (11.1-18.8)
[2018-09-12 13:02] LABS: ALBUMIN 4.16 GM/DL (3.29-5.55); ALPHA-1-GLOBULINS 0.36 GM/DL (0.17-0.41); BETA-1-GLOBULINS 0.44 GM/DL (0.28-0.60); BETA-2-GLOBULINS 0.28 GM/DL (0.19-0.55); GAMMA GLOBULINS 0.16 GM/DL (0.65-1.58)
[2018-09-12 13:10] LABS: IMMUNOTYPING SERUM KAPPA ABNORMAL (NORMAL)
[2018-09-14 00:06] LABS: FREE LAMBDA LIGHT CHAINS URINE 0.55 mg/L (0.24-6.66)
[2018-09-14 00:06] LABS: BETA-2 GLYCOPROTEIN I ABY IGA <9 (0-25); BETA-2 GLYCOPROTEIN I ABY IGG <9 (0-20); BETA-2 GLYCOPROTEIN I ABY IGM <9 (0-32); FREE KAPPA LIGHT CHAINS SERUM 2409.8 mg/L (3.3-19.4); FREE LAMBDA LIGHT CHAINS SERUM <1.5 mg/L (5.7-26.3); SERUM VISCOSITY 1.5 rel.saline (1.6-1.9)
== END ==
LOC: M LABDRWAD 08:52
PROVIDERS: ATTEND Internal Medicine Hematology & Oncology
DX: C83.00 Small cell B-cell lymphoma, unspecified site (principal)

== ENCOUNTER → 2018-09-21 | Outpatient (CLI) | payer MEDICARE, OTHER ==
[~2018-09-21] MED LIST changes: +ISOVUE-370 76% 100ML VIAL (Q9967) As Ordered ONE
--- NOTE | 2018-09-21 17:14 | REP ---
CT chest with IV contrast: History: Gross hematuria. Pulmonary nodule. The patient gives a history of lymphoma. Comparison CT studies are from May 31, 2018 and May 17, 2018. CT contrast dose: 100 ml of intravenous Isovue [address] findings: There is a small sliver of right pleural fluid posteriorly. There is no hilar or mediastinal mass or adenopathy. No pericardial or left pleural effusion is evident. The previously noted right apical 7 mm nodule is again noted unchanged. There is some linear fibrosis just above this. There is a ground-glass opacity with peribronchovascular small nodules within it in the right upper lobe on today's CT study as a new finding. The largest solid component within this larger ground-glass opacity measures 9 mm. The ground-glass opacity itself spans 3.2 cm. This is compatible with a small focus of pneumonia. It was not apparent previously. No other pulmonary nodule or infiltrate is appreciated. No bony destructive lesion is seen. Impression: The right apical nodule seen previously is stable. There is a new mixed density opacity in the right upper lobe 3.2 cm in overall dimension with ground-glass opacity and several solid nodular components within it. This may reflect an area of pneumonia, but merits follow-up. There is a small amount of right pleural fluid visible today. Follow-up CT study of the chest is recommended in 4-6 months. Electronically Signed by Amando Delarosa MD 09/21/2018 06:18 P
--- NOTE | 2018-09-21 17:47 | REP ---
CT urography: History: Gross hematuria. Pulmonary nodule. CT contrast dose: 100 ml of intravenous Isovue [address] study of the abdomen is from May 17, 2018. 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 The liver and the spleen are normal in size and homogeneous in texture. No adrenal lesion is seen on either side. The pancreas is unremarkable. There is no evidence of intrarenal calculus. There is a cyst in the right mid kidney which measures 1.4 cm in diameter. No renal mass lesion is observed. There is a smaller, 1 cm cyst in the left mid kidney. Delayed images show no evidence of filling defect in the collecting system on either side. The ureters describe a normal course to the bladder. No filling defect is seen in the bladder on delayed images. Postcontrast study shows no evidence of enhancing bladder mass. Prostate is mildly prominent and contains one or two calcifications. A normal appendix is seen in the right lower abdomen. Small and large intestinal bowel loops are unremarkable. There is mild ectasia of the infrarenal abdominal aorta but no aneurysm, 2.3 cm AP dimension. No retroperitoneal mass or adenopathy is seen. No bony destructive lesion is appreciated. Impression: Mildly prominent prostate. No evidence of bladder mass, urinary tract calculus, hydronephrosis or renal mass. There are small cysts in the kidneys, one on each side. Electronically Signed by Amando Delarosa MD 09/21/2018 06:19 P
== END ==
LOC: M RAD 14:01
PROVIDERS: ATTEND Family Medicine
DX: R91.8 Other nonspecific abnormal finding of lung field (principal); R31.0 Gross hematuria; J84.10 Pulmonary fibrosis, unspecified
CPT/HCPCS: 71260; 74178; Q9967

== ENCOUNTER 2018-10-09 05:52 | Day surgery (SDC) | payer MEDICARE, OTHER ==
[~2018-10-09] VITALS: Ht 177.8 cm; Wt 73.5 kg
[~2018-10-09 05:52] MED LIST changes: -ISOVUE-370 76% 100ML VIAL (Q9967) As Ordered ONE; +LR 1,000 ML IV ONE; +NORT10CA2 PO
[2018-10-09] MEDS ORDERED: LIDOCAINE VISCOUS 2% SOLN 15ML UDC As Ordered ONE (07:13)
[2018-10-09] MEDS ORDERED: CETACAINE SPRAY 5GM As Ordered ONE (07:13)
[2018-10-09] MEDS ORDERED: PROPOFOL 200 MG/20 ML VIAL As Ordered ONE (07:16)
[2018-10-09] MEDS ORDERED: LIDOCAINE 2% INJ 100 MG/5 ML SDV (FOR ANES.) As Ordered ONE (07:16)
[2018-10-09] MEDS ORDERED: MIDAZOLAM INJ 2 MG/2 ML VIAL (J2250) As Ordered ONE (07:38)
[2018-10-09] MEDS ORDERED: PHENYLephrine HCL 500 MCG/5 ML (100MCG/ML) SYRINGE (J2370) As Ordered ONE (07:43)
[2018-10-09] MEDS ORDERED: LR 500 ML IV ONE (09:00)
[2018-10-09] MEDS ORDERED: LR 1,000 ML IV SCH (09:00)
--- NOTE | 2018-10-09 10:00 | T-ECHO ---
DATE OF PROCEDURE: 10/09/2018 REFERRING PHYSICIAN: Richard Stark MD INDICATION: Mitral insufficiency. PROCEDURE: Transesophageal echocardiogram. PHYSICIAN: Fany Chaudhari MD ANESTHESIA: Zheng Gonzalez CRNA BRIEF HISTORY: Mr. Del Cid is a 63-year-old man who was found to have thickened mitral valve resulting in approximately moderate mitral insufficiency. During his prior transesophageal echocardiogram in the Fall of 2017, Dr. Stark requested followup transesophageal echocardiogram. I met with the patient on outpatient basis. I explained the nature of the procedure and potential complications to him and he did sign the appropriate consent. He came for the procedure in a fasting condition. PROCEDURE NOTE: The patient was brought to the operating room. Appropriate time-out was taken. Viscous lidocaine and Cetacaine spray were used for topical anesthesia of the posterior pharynx. Bite block was placed. Patient was positioned in left lateral decubital position. Anesthesiology administered sedation in the form of iv propofol. When appropriate level of sedation was achieved transesophageal probe was introduced into esophagus and later the stomach without difficulty. After appropriate images were taken, it was withdrawn. There were no immediate complications and he tolerated the procedure well. FINDINGS: The left ventricle appears to be mildly globally hypokinetic. I estimate ejection fraction (EF) around 50-55%. LVH is noted. The right ventricle appears to be normal size and systolic function. Both atria appear enlarged. A left atrial appendage is relatively large, but free of thrombus. There is normal flow in both left-sided and right-sided pulmonary veins. Mitral valve is markedly thickened. There is mild prolapse of posterior mitral leaflet. No vegetations are seen. By color Doppler imaging, there is approximately mild or possibly mild to moderate mitral insufficiency. The aortic valve has normal structure. Again, no vegetations are seen. By color Doppler imaging, there is no stenosis or insufficiency. The tricuspid valve also appears normal. Mild tricuspid regurgitation (TR) is present. Calculated pulmonary artery pressure is within normal limits. Pulmonic valve appears normal. There is no insufficiency or stenosis of the valve. Atrial septum is intact by 2-D and color Doppler imaging. There is no pericardial effusion. There is only mild atherosclerosis of aortic arch and visualized segment of descending aorta, no ulcers or thrombi. CONCLUSIONS: 1. Left ventricular hypertrophy (LVH), low normal or mildly reduced LV systolic function. 2. Thickened mitral valve with mild prolapse of posterior mitral leaflet and mild mitral insufficiency. 3. Left atrial appendage free of thrombi. 4. Normal flow in both right-sided and left-sided pulmonary veins. 5. Intact atrial septum. 6. Normal aortic, mitral and tricuspid valves. 7. Likely normal central venous pressure and pulmonary artery pressure. 8. Mild atherosclerosis of aortic arch. CC: MD DEANNA Arreola
[2018-10-09 10:15] VITALS: BP 121/79
== END 2018-10-09 10:35 | disposition home or self-care (01) ==
LOC: M SDC 05:52
PROVIDERS: ATTEND Internal Medicine Cardiovascular Disease
DX: I34.0 Nonrheumatic mitral (valve) insufficiency (principal); I51.7 Cardiomegaly; K21.9 Gastro-esophageal reflux disease without esophagitis; Z79.899 Other long term (current) drug therapy; Z87.891 Personal history of nicotine dependence
CPT/HCPCS: 93312; 93320; 93325; J2250; J2370

== ENCOUNTER → 2018-10-12 | Outpatient (CLI) | payer MEDICARE, OTHER ==
[~2018-10-12] MED LIST changes: -LR 1,000 ML IV ONE
--- NOTE | 2018-10-13 09:34 | REP ---
Chest two views HISTORY: Pulmonary nodule Comparison: 05/31/2018 Linear densities are present in the left lower lobe consistent with atelectasis or scar. The right lung is clear. Small bilateral pleural effusions are present. The heart is normal in size. The pulmonary vasculature is normal in appearance. The bony structure is intact. IMPRESSION: 1. Left lower lobe atelectasis or scar. 2. Small bilateral pleural effusions. Electronically Signed by Adolfo Henderson MD 10/13/2018 09:26 A
== END ==
LOC: M ADAMS 12:07
PROVIDERS: ATTEND Family Medicine
DX: J98.11 Atelectasis (principal); J91.8 Pleural effusion in other conditions classified elsewhere

== ENCOUNTER → 2018-11-03 | Outpatient (REF) | payer MEDICARE, OTHER ==
[2018-11-03 13:29] LABS: BASO # 0.1 10^3/uL (0.0-0.2); BASO % 0.8 % (0.0-1.0); EOS # 0.1 10^3/uL (0.0-0.50); EOS % 1.2 % (0.0-3.0); HEMATOCRIT 38.4 % (42.0-52.0); HEMOGLOBIN 12.8 g/dl (13.5-17.5); LYMPH # 1.6 10^3/uL (1.5-4.5); LYMPH % 20.8 % (24.0-44.0); MEAN CORPUSCULAR HEMOGLOBIN 28.8 pg (27.0-33.0); MEAN CORPUSCULAR HGB CONC 33.3 g/dl (32.0-36.5); MEAN CORPUSCULAR VOLUME 86.3 fl (80.0-96.0); MONO # 0.7 10^3/uL (0.0-0.8); MONO % 9.6 % (0.0-5.0); NEUTROPHILS # 5.1 10^3/uL (1.8-7.7); NEUTROPHILS % 67.5 % (36.0-66.0); PLATELET COUNT, AUTOMATED 388 10^3/uL (150-450); RED BLOOD COUNT 4.45 10^6/uL (4.30-6.10); WHITE BLOOD COUNT 7.5 10^3/uL (4.0-10.0)
[2018-11-03 13:51] LABS: ALBUMIN 4.1 GM/DL (3.2-5.2); ALT/SGPT 20 U/L (12-78); BILIRUBIN,TOTAL 0.7 MG/DL (0.2-1.0); BLOOD UREA NITROGEN 12 MG/DL (7-18); CALCIUM LEVEL 9.6 MG/DL (8.8-10.2); CARBON DIOXIDE LEVEL 28 MEQ/L (21-32); CHLORIDE LEVEL 98 MEQ/L (98-107); CREATININE FOR GFR 0.81 MG/DL (0.70-1.30); GLOMERULAR FILTRATION RATE > 60.0 (>49); GLUCOSE, FASTING 93 MG/DL (70-100); MAGNESIUM LEVEL 2.6 MG/DL (1.8-2.4); NT-PRO BNP 2922 PG/ML (<125); POTASSIUM SERUM 5.2 MEQ/L (3.5-5.1); SODIUM LEVEL 134 MEQ/L (136-145); TOTAL PROTEIN 6.2 GM/DL (6.4-8.2)
== END ==
LOC: M SFHCPLAZ 10:49
PROVIDERS: ATTEND Nurse Practitioner Family
DX: R60.0 Localized edema (principal)

== ENCOUNTER → 2018-11-10 | Outpatient (REF) | payer MEDICARE, OTHER ==
[2018-11-10 19:10] LABS: ALBUMIN 4.2 GM/DL (3.2-5.2); ALT/SGPT 22 U/L (12-78); BLOOD UREA NITROGEN 19 MG/DL (7-18); CALCIUM LEVEL 9.1 MG/DL (8.8-10.2); CARBON DIOXIDE LEVEL 26 MEQ/L (21-32); CHLORIDE LEVEL 100 MEQ/L (98-107); CREATININE FOR GFR 0.83 MG/DL (0.70-1.30); GLOMERULAR FILTRATION RATE > 60.0 (>49); GLUCOSE, FASTING 87 MG/DL (70-100); MAGNESIUM LEVEL 2.7 MG/DL (1.8-2.4); NT-PRO BNP 2493 PG/ML (<125); POTASSIUM SERUM 4.9 MEQ/L (3.5-5.1); SODIUM LEVEL 134 MEQ/L (136-145); TOTAL PROTEIN 6.5 GM/DL (6.4-8.2)
== END ==
LOC: M SFHCPLAZ 15:56
PROVIDERS: ATTEND Nurse Practitioner Family
DX: R60.0 Localized edema (principal); I95.1 Orthostatic hypotension
CPT/HCPCS: 36415; 80053; 83735; 83880; G0463

== ENCOUNTER → 2018-11-21 | Outpatient (CLI) | payer MEDICARE, OTHER ==
--- NOTE | 2018-11-21 17:12 | REP ---
Skeletal survey adult: 16 views: History: Lymphoblastic lymphoma. Comparison study: June 14, 2017. Technique: AP and lateral views of the skull, cervical spine, thoracic spine, lumbar spine are obtained. AP views of the pelvis and each humerus and each femur are acquired. Findings: No bony calvarial lesion is seen. No radiolucency is seen in the mandible or maxillary structures. Cervical spine views demonstrate degenerative disc and osteoarthritic facet disease which is radiographically unchanged. Thoracic vertebral body heights are preserved. Degenerative disc changes are noted in the thoracic and lumbar spine as before. No fracture or collapse is seen. No pelvic lesion is appreciated. Surgical clips are noted in the perineum as before. There is old post-traumatic deformity of the right femoral diaphysis unchanged. There are osteoarthritic changes at the right knee mild in degree and unchanged. No humeral or femoral bony destructive lesion is appreciated. Impression: No focal bony destructive lesion seen. Degenerative changes are noted in the spine. Old post-traumatic deformity of the right femur. Electronically Signed by Amando Delarosa MD 11/21/2018 07:56 P
== END ==
LOC: M RAD 15:11
PROVIDERS: ATTEND Internal Medicine Hematology & Oncology
DX: Z13.828 Encounter for screening for other musculoskeletal disorder (principal); M47.812 Spondylosis without myelopathy or radiculopathy, cervical region; M17.11 Unilateral primary osteoarthritis, right knee; M50.90 Cervical disc disorder, unspecified, unspecified cervical region; M51.36 Other intervertebral disc degeneration, lumbar region; M51.34 Other intervertebral disc degeneration, thoracic region; Z85.72 Personal history of non-Hodgkin lymphomas

== ENCOUNTER 2018-12-29 11:44 | Emergency (ER) | payer MEDICARE, OTHER ==
[~2018-12-29] VITALS: Ht 177.8 cm; Wt 72.7 kg
[~2018-12-29 11:44] MED LIST changes: +FURO20TA2 PO; +OMEP40CA2 PO; +[UNRECOGNIZED DRUG - OTHER] PO
[2018-12-29 12:32] LABS: BASO # 0.1 10^3/uL (0.0-0.2); BASO % 0.6 % (0.0-1.0); EOS # 0.1 10^3/uL (0.0-0.50); EOS % 1.2 % (0.0-3.0); HEMATOCRIT 37.5 % (42.0-52.0); HEMOGLOBIN 12.3 g/dl (13.5-17.5); LYMPH # 1.4 10^3/uL (1.5-4.5); MEAN CORPUSCULAR HEMOGLOBIN 28.6 pg (27.0-33.0); MEAN CORPUSCULAR HGB CONC 32.8 g/dl (32.0-36.5); MEAN CORPUSCULAR VOLUME 87.2 fl (80.0-96.0); MONO # 0.8 10^3/uL (0.0-0.8); MONO % 9.9 % (0.0-5.0); NEUTROPHILS # 5.8 10^3/uL (1.8-7.7); NEUTROPHILS % 70.6 % (36.0-66.0); PLATELET COUNT, AUTOMATED 269 10^3/uL (150-450); WHITE BLOOD COUNT 8.2 10^3/uL (4.0-10.0)
[2018-12-29] MEDS ORDERED: MIDO10TA PO (12:46)
--- NOTE | 2018-12-29 12:53 | REP ---
CT Head without contrast HISTORY: Seizure COMPARISON: 06/08/2018 Areas of decreased attenuation are present in the periventricular white matter. This represents small-vessel ischemic disease. There is no intraparenchymal hemorrhage, acute infarct, mass or midline shift. The ventricular system is normal in appearance. The cortical sulci are dilated consistent with minimal volume loss. There is no extra cerebral collection. There is no fracture. The visualized sinuses are clear. IMPRESSION: 1. Small vessel ischemic disease. 2. Minimal volume loss. Electronically Signed by Adolfo Henderson MD 12/29/2018 12:45 P
[2018-12-29 12:55] LABS: ALBUMIN 3.7 GM/DL (3.2-5.2); ALT/SGPT 26 U/L (12-78); BILIRUBIN,DIRECT 0.3 MG/DL (0.0-0.2); BLOOD UREA NITROGEN 15 MG/DL (7-18); CALCIUM LEVEL 8.9 MG/DL (8.8-10.2); CARBON DIOXIDE LEVEL 26 MEQ/L (21-32); CHLORIDE LEVEL 99 MEQ/L (98-107); CREATININE FOR GFR 0.85 MG/DL (0.70-1.30); GLOMERULAR FILTRATION RATE > 60.0 (>49); GLUCOSE, FASTING 86 MG/DL (70-100); LIPASE 53 U/L (73-393); MAGNESIUM LEVEL 2.4 MG/DL (1.8-2.4); POTASSIUM SERUM 4.7 MEQ/L (3.5-5.1); SODIUM LEVEL 133 MEQ/L (136-145)
[2018-12-29 12:58] LABS: OSMOLALITY SERUM 276 MOSM/KG (280-301)
--- NOTE | 2018-12-29 12:59 | REP ---
CT cervical spine without contrast HISTORY: Fall COMPARISON: None There is no acute fracture or subluxation. Disc bulges are present at the C3-4 and C4-5 levels. Disc bulges with associated osteophyte formation are present at the C5-6 and C6-7 levels. There is minimal narrowing of the spinal canal. Uncinate process and/or facet hypertrophy are present at the C2-3 through C6-7 levels. These findings produce minimal to moderate narrowing of the neural foramina. The C5-6 and C6-7 intervertebral discs are decreased in height consistent with disc degeneration. Apical pleural thickening is present. IMPRESSION: 1. There is no acute fracture or subluxation. 2. There is cervical spondylosis at the C2-3 through C6-7 levels. Electronically Signed by Adolfo Henderson MD 12/29/2018 12:50 P
--- NOTE | 2018-12-29 13:22 | REP ---
CHEST, PORTABLE: AP portable view of the chest is performed and compared to a prior study of 10/12/2018. There are bilateral pleural effusions, mild to moderate, with adjacent bibasilar atelectasis/infiltrate. Cardiomediastinal silhouette appears unchanged since the prior study. IMPRESSION: Mild to moderate bilateral pleural effusions with bibasilar infiltrates/atelectasis. Electronically Signed by Piotr Corona MD 01/01/2019 01:36 P
[2018-12-29] MEDS ORDERED: PROS5TAB PO (16:30)
[2018-12-29 17:30] VITALS: BP 128/94
--- NOTE | 2018-12-29 19:55 | ECGEPIP ---
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
== END 2018-12-29 17:44 | disposition home or self-care (01) ==
LOC: M ED 11:44
DX: I95.1 Orthostatic hypotension (principal); R55 Syncope and collapse; R33.9 Retention of urine, unspecified; J90 Pleural effusion, not elsewhere classified; M47.812 Spondylosis without myelopathy or radiculopathy, cervical region; I95.9 Hypotension, unspecified; Z87.891 Personal history of nicotine dependence; G43.909 Migraine, unspecified, not intractable, without status migrainosus; K22.70 Barrett's esophagus without dysplasia; Z79.82 Long term (current) use of aspirin; Z79.899 Other long term (current) drug therapy; Z88.8 Allergy status to other drugs, medicaments and biological substances

== ENCOUNTER 2018-12-31 12:11 | Inpatient (IN) | payer MEDICARE, OTHER ==
[~2018-12-31] VITALS: Ht 177.8 cm; Wt 72.3 kg
[~2018-12-31 12:11] MED LIST changes: +PROS5TAB PO
[2018-12-31 13:15] LABS: BASO % 0.3 % (0.0-1.0); EOS % 0.4 % (0.0-3.0); HEMATOCRIT 38.2 % (42.0-52.0); HEMOGLOBIN 12.4 g/dl (13.5-17.5); LYMPH # 1.2 10^3/uL (1.5-4.5); LYMPH % 11.4 % (24.0-44.0); MEAN CORPUSCULAR HEMOGLOBIN 28.4 pg (27.0-33.0); MEAN CORPUSCULAR HGB CONC 32.5 g/dl (32.0-36.5); MEAN CORPUSCULAR VOLUME 87.4 fl (80.0-96.0); NEUTROPHILS # 8.5 10^3/uL (1.8-7.7); NEUTROPHILS % 78.4 % (36.0-66.0); PLATELET COUNT, AUTOMATED 289 10^3/uL (150-450); RED BLOOD COUNT 4.37 10^6/uL (4.30-6.10); WHITE BLOOD COUNT 10.8 10^3/uL (4.0-10.0)
[2018-12-31 13:23] LABS: BILIRUBIN, URINE MANUAL NEGATIVE (NEGATIVE); GLUCOSE, URINE (UA) MANUAL NEGATIVE (NEGATIVE); KETONE, URINE MANUAL NEGATIVE (NEGATIVE); UROBILINOGEN, URINE MANUAL NORMAL (NORMAL)
[2018-12-31 13:26] LABS: INR 1.19; PROTHROMBIN TIME 15.3 SECONDS (12.1-14.4)
[2018-12-31 13:26] LABS: MUCUS, URINE MOD AMOUNT (NEGATIVE); RBC, URINE TNTC /hpf (0-3); SQUAMOUS EPITHELIAL CELL URINE NONE SEEN /hpf (SMALL AMT)
[2018-12-31 13:29] LABS: BACTERIA, URINE MOD AMOUNT; HYALINE CAST, URINE NONE SEEN /lpf (0-1)
[2018-12-31 13:39] LABS: BLOOD UREA NITROGEN 14 MG/DL (7-18); CALCIUM LEVEL 8.8 MG/DL (8.8-10.2); CARBON DIOXIDE LEVEL 28 MEQ/L (21-32); CHLORIDE LEVEL 99 MEQ/L (98-107); CREATININE FOR GFR 0.88 MG/DL (0.70-1.30); GLOMERULAR FILTRATION RATE > 60.0 (>49); GLUCOSE, FASTING 97 MG/DL (70-100); POTASSIUM SERUM 4.6 MEQ/L (3.5-5.1); SODIUM LEVEL 135 MEQ/L (136-145)
--- NOTE | 2018-12-31 13:53 | REP ---
Chest two views HISTORY: Shortness of breath Comparison: 12/29/2018 Patchy density is present in the lower lobes consistent with bibasilar infiltrates. Small bilateral pleural effusions are present. These findings are unchanged. The heart is normal in size. The pulmonary vasculature is normal in appearance. The bony structure is intact. IMPRESSION: 1. Bibasilar infiltrates unchanged compared to the previous study. 2. Small bilateral pleural effusions unchanged compared to the previous study. Electronically Signed by Adolfo Henderson MD 12/31/2018 01:45 P
--- NOTE | 2018-12-31 15:13 | REP ---
BILATERAL LOWER EXTREMITY DUPLEX VEINS: HISTORY: Edema. RIGHT LOWER EXTREMITY: There are no filling defects in the deep venous system. The deep venous system is patent. IMPRESSION: There is no deep venous thrombosis. LEFT LOWER EXTREMITY: There are no filling defects in the deep venous system. The deep venous system is patent. IMPRESSION: There is no deep venous thrombosis. Electronically Signed by Adolfo Henderson MD 12/31/2018 03:31 P
[2018-12-31 16:08] LABS: ALBUMIN 3.5 GM/DL (3.2-5.2); ALT/SGPT 23 U/L (12-78); BILIRUBIN,DIRECT 0.4 MG/DL (0.0-0.2); TOTAL PROTEIN 5.8 GM/DL (6.4-8.2)
[2018-12-31] MEDS ORDERED: FINA5TAB2 PO (16:39)
[2018-12-31] MEDS ORDERED: FLUD0.1T PO (16:39)
[2018-12-31] MEDS ORDERED: ACETAMINOPHEN TAB 650MG DOSE (2X325MG) PO PRN (16:45)
[2018-12-31] MEDS: FINASTERIDE 5 MG TAB PO SCH (17:00)
[2018-12-31] MEDS: PREGABALIN 50 MG CAP (LYRICA) PO SCH (19:27)
[2018-12-31 20:10] VITALS: BP 102/64
[2018-12-31] MEDS: NORTRIPTYLINE 10 MG CAP PO SCH (21:13)
[2019-01-01] VITALS (7 sets, daily range): BP systolic 98–116; BP diastolic 60–80
[2019-01-01 05:17] LABS: BASO # 0.1 10^3/uL (0.0-0.2); BASO % 0.7 % (0.0-1.0); EOS # 0.2 10^3/uL (0.0-0.50); EOS % 1.7 % (0.0-3.0); HEMATOCRIT 35.3 % (42.0-52.0); HEMOGLOBIN 11.4 g/dl (13.5-17.5); LYMPH # 1.9 10^3/uL (1.5-4.5); LYMPH % 19.6 % (24.0-44.0); MEAN CORPUSCULAR HEMOGLOBIN 27.9 pg (27.0-33.0); MEAN CORPUSCULAR HGB CONC 32.3 g/dl (32.0-36.5); MEAN CORPUSCULAR VOLUME 86.5 fl (80.0-96.0); MONO # 1.1 10^3/uL (0.0-0.8); MONO % 11.5 % (0.0-5.0); NEUTROPHILS # 6.3 10^3/uL (1.8-7.7); PLATELET COUNT, AUTOMATED 283 10^3/uL (150-450); RED BLOOD COUNT 4.08 10^6/uL (4.30-6.10); WHITE BLOOD COUNT 9.5 10^3/uL (4.0-10.0)
[2019-01-01 05:41] LABS: ALBUMIN 3.5 GM/DL (3.2-5.2); ALT/SGPT 21 U/L (12-78); BILIRUBIN,TOTAL 1.1 MG/DL (0.2-1.0); BLOOD UREA NITROGEN 13 MG/DL (7-18); CALCIUM LEVEL 8.6 MG/DL (8.8-10.2); CARBON DIOXIDE LEVEL 28 MEQ/L (21-32); CHLORIDE LEVEL 99 MEQ/L (98-107); CREATININE FOR GFR 0.84 MG/DL (0.70-1.30); GLOMERULAR FILTRATION RATE > 60.0 (>49); GLUCOSE, FASTING 82 MG/DL (70-100); SODIUM LEVEL 134 MEQ/L (136-145); TOTAL PROTEIN 5.7 GM/DL (6.4-8.2)
--- NOTE | 2019-01-01 07:05 | REP ---
CT CHEST WITHOUT CONTRAST: CONTRAST: Effusion. Patchy density is present in the lower lobes consistent with bilateral infiltrates. Large right pleural effusions are present. The heart is upper limits of normal in size. There is no aneurysm, atherosclerotic calcification is present in the thoracic aorta. There is no mediastinal mass. Degenerative change in present in the thoracic spine. Impression:1. Bibasilar infiltrates.2. Large bilateral pleural effusions. Electronically Signed by Adolfo Henderson MD 01/01/2019 08:05 A
--- NOTE | 2019-01-01 07:08 | REP ---
CT ABDOMEN AND PELVIS WITHOUT CONTRAST: HISTORY: Effusion. COMPARISON: 09/21/2018 Small bilateral renal cysts are present. The liver, gallbladder, pancreas, spleen and adrenal glands are normal in appearance. A small amount of free fluid is present. There is no mass or adenopathy. Bibasilar infiltrates and effusions are present. A [place] catheter and air are present in the urinary bladder. Calcification is present in the prostate gland. A small amount of free fluid is present. Degenerative change is present in the spine. IMPRESSION:1. Small bilateral renal cysts. 2. There is a small amount of free fluid in the abdomen and pelvis. Electronically Signed by Adolfo Henderson MD 01/01/2019 08:02 A
[2019-01-01] MEDS: MIDODRINE 5 MG TAB PO SCH ×3 (08:08→17:29)
[2019-01-01] MEDS: DOCUSATE SODIUM 100 MG CAP PO SCH (08:08)
[2019-01-01] MEDS: OMEPRAZOLE 20 MG CAP PO SCH (08:08)
[2019-01-01] MEDS: FLUDROCORTISONE ACETATE 0.1 MG TAB PO SCH (08:08)
[2019-01-01] MEDS: CYANOCOBALAMIN 500 MCG TAB PO SCH (08:08)
[2019-01-01] MEDS: PREGABALIN 50 MG CAP (LYRICA) PO SCH ×2 (08:09→19:27)
--- NOTE | 2019-01-01 09:36 | REP ---
Chest two views HISTORY: Pleural effusion Comparison: 12/31/2018 Patchy density is present in the lower lobes consistent with bibasilar infiltrates unchanged compared to the previous study. Small bilateral pleural effusions are present unchanged compared to the previous study. The heart is normal in size. The pulmonary vasculature is normal in appearance. The bony structure is intact. IMPRESSION: 1. Bibasilar infiltrates unchanged compared to the previous study. 2. Small bilateral pleural effusions unchanged compared to the previous study. Electronically Signed by Adolfo Henderson MD 01/01/2019 09:28 A
--- NOTE | 2019-01-01 10:13 | IPNPDOC ---
Subjective Date Seen The patient was seen on 01/01/19. Subjective Chief Complaint/HPI Pt this morning without new concerns. He denies new symptoms. Feels as though the blood in his islas has diminished as it is not quite as red. General: Denies: Fatigue Constitutional: Denies: Chills, Fever ENT: Denies: Head Aches Pulmonary: Reports: Dyspnea (slightly worse with baseline, only noted with exertion); Denies: Cough Cardiovascular: Denies: Chest Pain, Palpitations Gastrointestinal: Denies: Nausea, Vomiting, Diarrhea Musculoskeletal: Denies: Neck Pain Neurological: Denies: Weakness Psych: Reports: Mood Normal Objective Physical Examination General Exam: Positive: Alert, Cooperative, No Acute Distress ENT Exam: Positive: Mucous membr. moist/pink Neck Exam: Negative: Supple, JVD Chest Exam: Positive: Diminished (valente at B bases) Heart Exam: Positive: Rate Normal, Normal S1, Normal S2; Negative: Murmurs Abdomen Exam: Positive: Normal bowel sounds, Soft; Negative: Tenderness Extremity Exam: Positive: Edema (1 mm pitting BLE) Neuro Exam: Positive: Normal Speech Psych Exam: Positive: Mood NL A-FIB/CHADSVASC A-FIB History Current/History of A-Fib/PAF?: No Assessment /Plan Assessment 01/01: Plan thoracentesis. Patient describes gradual decline in functional capacity over the last month. Also notes dysphagia, and ST consulted for dietary recommendations. -- CDT Problems (1) Bilateral pleural effusion Status: Acute Discussed With: Hub Borer, Patient Problem Specific Plan: Monitor Clinically, Repeat Labs Problem Text: Consult in for Dr Coello, Dr Peres spoke with him and he plans to see the patient today. (2) Hematuria Status: Acute Response to Treatment: Stable Problem Specific Plan: Monitor Clinically, Repeat Labs Problem Text: Pt had islas placed on 12/29 for urinary retention in the ER, Hgb 12.4 yest, 11.4 today, cont to monitor. Uro has not yet been consulted, his bleeding appears to have slowed if this remains, will f/u with Uro as an outpt. (3) Orthostatic hypotension Status: Chronic Problem Text: On Midodrine and Florinef (4) Lymphoblastic diffuse lymphoma Status: Chronic Response to Treatment: Stable Problem Specific Plan: Monitor Clinically Problem Text: Completed round 4 Chemo on 12/26, follows with Dr Ayers. We will speak with her today regarding current status. Plan/VTE VTE Prophylaxis Ordered?: No VTE Exclusion Mechanical Proph: N/A:VTE Prophy Ordered VTE Exclusion Pharmacological: Active Bleeding VS, I&O, 24H, Fishbone Vital Signs/I&O Vital Signs Date Time Temp Pulse Resp B/P (MAP) Pulse Ox O2 Delivery O2 Flow Rate FiO2 01/01/19 08:00 97.0 100 20 101/60 (74) 97 12/31/18 20:07 Room Air I&O- Last 24 Hours up to 6 AM 01/01/19 06:00 Intake Total 180 ml Output Total 425 ml Balance -245 ml Laboratory Data 24H LABS Laboratory Tests 2 12/31/18 12:52: Immature Granulocyte % (Auto) 0.5, White Blood Count 10.8H, Red Blood Count 4.37, Hemoglobin 12.4L, Hematocrit 38.2L, Mean Corpuscular Volume 87.4, Mean Corpuscular Hemoglobin 28.4, Mean Corpuscular Hemoglobin Concent 32.5, Red Cell Distribution Width 17.3H, Platelet Count 289, Neutrophils (%) (Auto) 78.4H, Lymphocytes (%) (Auto) 11.4L, Monocytes (%) (Auto) 9.0H, Eosinophils (%) (Auto) 0.4, Basophils (%) (Auto) 0.3, Neutrophils # (Auto) 8.5H, Lymphocytes # (Auto) 1.2L, Monocytes # (Auto) 1.0H, Eosinophils # (Auto) 0.0, Basophils # (Auto) 0.0, Nucleated Red Blood Cells % (auto) 0.0, Prothrombin Time 15.3H, Prothromb Time International Ratio 1.19, Anion Gap 8, Glomerular Filtration Rate > 60.0, Calcium Level 8.8, Aspartate Amino Transf (AST/SGOT) 10, Alanine Aminotransferase (ALT/SGPT) 23, Alkaline Phosphatase 132H, Total Bilirubin 1.0, Direct Bilirubin 0.4H, Total Protein 5.8L, Albumin 3.5, Albumin/Globulin Ratio 1.52 12/31/18 12:56: Urine Color (ZULEMA) REDH, Urine Appearance (ZULEMA) CLOUDYH, Urine pH (ZULEMA) 7.0, Ur ine Specific [place] (ZULEMA) 1.015, Urine Protein 3+H, Bedside Urine Glucose (UA) NEGATIVE, Bedside Urine Ketones (LAB) NEGATIVE, Bedside Urine Blood POSITIVEH, Bedside Urine Nitrite (LAB) POSITIVEH, Bedside Urine Bilirubin (LAB) NEGATIVE, Bedside Urine Urobilinogen (LAB) NORMAL, Bedside Urine Leukocyte Esterase (L POSITIVEH, Urine Sediment Examination PERFORMED, Urine RBC TNTCH, Urine WBC 7- 10H, Urine Squamous Epithelial Cells NONE SEEN, Urine Bacteria MOD AMOUNTH, Urine Hyaline Casts NONE SEEN, Urine Mucus MOD AMOUNTH 01/01/19 04:43: Immature Granulocyte % (Auto) 0.5, White Blood Count 9.5, Red Blood Count 4.08L, Hemoglobin 11.4L, Hematocrit 35.3L, Mean Corpuscular Volume 86.5, Mean Corpuscular Hemoglobin 27.9, Mean Corpuscular Hemoglobin Concent 32.3, Red Cell Distribution Width 17.2H, Platelet Count 283, Neutrophils (%) (Auto) 66.0, Lymphocytes (%) (Auto) 19.6L, Monocytes (%) (Auto) 11.5H, Eosinophils (%) (Auto) 1.7, Basophils (%) (Auto) 0.7, Neutrophils # (Auto) 6.3, Lymphocytes # (Auto) 1.9, Monocytes # (Auto) 1.1H, Eosinophils # (Auto) 0.2, Basophils # (Auto) 0.1, Nucleated Red Blood Cells % (auto) 0.0, Anion Gap 7L, Glomerular Filtration Rate > 60.0, Calcium Level 8.6L, Aspartate Amino Transf (AST/SGOT) 11, Alanine Aminotransferase (ALT/SGPT) 21, Alkaline Phosphatase 116, Total Bilirubin 1.1H, Total Protein 5.7L, Albumin 3.5, Albumin/Globulin Ratio 1.59, Blood Urea Nitrogen 13, Creatinine 0.84, Sodium Level 134L, Potassium Level 4.0, Chloride Level 99, Carbon Dioxide Level 28, Magnesium Level 2.0 CBC/BMP Laboratory Tests 12/31/18 12:52 Red Blood Count 4.37, Mean Corpuscular Volume 87.4, Mean Corpuscular Hemoglobin 28.4, Mean Corpuscular Hemoglobin Concent 32.5, Red Cell Distribution Width 17.3 H, Neutrophils (%) (Auto) 78.4 H, Lymphocytes (%) (Auto) 11.4 L, Monocytes (%) (Auto) 9.0 H, Eosinophils (%) (Auto) 0.4, Basophils (%) (Auto) 0.3, Neutrophils # (Auto) 8.5 H, Lymphocytes # (Auto) 1.2 L, Monocytes # (Auto) 1.0 H, Eosinophils # (Auto) 0.0, Basophils # (Auto) 0.0 01/01/19 04:43 Red Blood Count 4.08 L, Mean Corpuscular Volume 86.5, Mean Corpuscular Hemoglobin 27.9, Mean Corpuscular Hemoglobin Concent 32.3, Red Cell Distribution Width 17.2 H, Neutrophils (%) (Auto) 66.0, Lymphocytes (%) (Auto) 19.6 L, Monocytes (%) (Auto) 11.5 H, Eosinophils (%) (Auto) 1.7, Basophils (%) (Auto) 0.7, Neutrophils # (Auto) 6.3, Lymphocytes # (Auto) 1.9, Monocytes # (Auto) 1.1 H, Eosinophils # (Auto) 0.2, Basophils # (Auto) 0.1, Calcium Level 8.6 L, Aspartate Amino Transf (AST/SGOT) 11, Alanine Aminotransferase (ALT/SGPT) 21, Alkaline Phosphatase 116, Total Bilirubin 1.1 H, Total Protein 5.7 L, Albumin 3.5 Microbiology Microbiology 12/31/18 Urine Culture, Received Pending SENA STOKES PA-C Jan 01, 2019 10:13 RADHA SANDRA DO Jan 01, 2019 22:39
[2019-01-01] MEDS: NORTRIPTYLINE 10 MG CAP PO SCH ×2 (13:08→19:27)
[2019-01-01 13:31] LABS: LDH LACTATE DEHYDROGENASE 139 U/L (87-241)
--- NOTE | 2019-01-01 15:55 | NUR ---
Swallow evaluation recommendations: Level 2 mechanically altered (NDD) solids, [place] thick liquids, Biotene or other saliva substitute, Upright & OOB as tolerated for meals, Med's administered one at a time and w/ puree assist prn Dysphagia tx for compensatory strategy training, assess diet tolerance, & resistance exercises. Addendum: 01/01/[address] [facility] Amended: Links added.
[2019-01-01 16:17] LABS: APPEARANCE, BODY FLUID HAZY (CLEAR); PLEURAL FL COLOR YELLOW (COLORLESS); SOURCE, BODY FLUID PLEURAL
[2019-01-01 16:23] LABS: SOURCE, BODY FLUID pH PLEURAL
[2019-01-01 16:48] LABS: AMYLASE, BODY FLUID 8 U/L (NOT ESTABLISHED); CHOLESTEROL, BODY FLUID < 50 MG/DL (NOT ESTABLISHED); LDH, BODY FLUID 37 U/L (NOT ESTABLISHED); SOURCE, BODY FLUID ALBUMIN PLEURAL; SOURCE, BODY FLUID AMYLASE PLEURAL; SOURCE, BODY FLUID CHOL PLEURAL; SOURCE, BODY FLUID GLUCOSE PLEURAL; SOURCE, BODY FLUID LDH PLEURAL; SOURCE, BODY FLUID TOT PROTEIN PLEURAL; SOURCE, BODY FLUID TRIG PLEURAL; TOTAL PROTEIN, BODY FLUID 1.6 G/DL (NOT ESTABLISHED); TRIGLYCERIDE, BODY FLUID 8 MG/DL (NOT ESTABLISHED)
[2019-01-01] MEDS: FINASTERIDE 5 MG TAB PO SCH (17:30)
[2019-01-01] MEDS: MIRALAX *UNIT DOSE* 17GM PACKET PO PRN (17:34)
--- NOTE | 2019-01-01 19:07 | REP ---
TWO VIEW CHEST: Two views of the chest are performed status-post right thoracentesis. There is decreased right pleural fluid. Persistent moderate left effusion is noted. Mild patchy opacities in each lung base are again noted. Cardiomediastinal silhouette is unchanged. IMPRESSION: Decreased amount of right pleural fluid status-post right thoracentesis. No pneumothorax. Electronically Signed by Piotr Corona MD 01/03/2019 10:12 A
--- NOTE | 2019-01-01 19:48 | REP ---
ULTRASOUND GUIDED RIGHT THORACENTESIS: Patient was referred for ultrasound guided right thoracentesis. Informed consent was obtained. Under sterile conditions and after satisfactory administration of local anesthesia, access to the posterior right pleural space is obtained using an 8-Persian thoracentesis catheter. Clear yellow fluid was manually aspirated with a closed aspiration system. A total of 1515 mL of clear yellow fluid was aspirated without difficulty and sent for appropriate testing as per referring clinician. The catheter was removed and hemostasis was obtained with immediate complication. Postprocedure chest radiographs showed no pneumothorax. Electronically Signed by Piotr Corona MD 01/03/2019 10:19 A
--- NOTE | 2019-01-01 22:39 | ECHO ---
DATE OF PROCEDURE: 01/01/2019 REFERRING PHYSICIAN: Dr. Gerald Peres INDICATION: Chemotherapy drugs that may affect the heart. HEIGHT: 177 cm WEIGHT: 73.5 kg 2D MEASUREMENTS: Aortic root: 3.3 cm Left atrium: 3.9 cm Ventricular septum: 1.80 cm Posterior wall: 1.52 cm Left ventricle diastole: 3.6 cm LVOT: 2.1 cm Inferior vena cava: 2.1 cm with marked reduction of respiratory variation. DOPPLER MEASUREMENTS: Aortic valve velocity: 0.99 cm/s Moderate mitral regurgitation. No mitral stenosis. Mitral E velocity: 122 cm/s Mitral deceleration time: 122 ms Severe tricuspid regurgitation. Estimated right ventricle systolic pressure: At least 52 mmHg assuming a pressure of 20 mmHg. Trace pulmonic regurgitation. Pulmonary artery systolic pressure: 38 mmHg MITRAL ANNULAR TISSUE DOPPLER: E prime septal: 4.9 cm/s E prime lateral: 5.0 cm/s DESCRIPTION: 1. Moderately severe concentric left ventricle hypertrophy with a speckle pattern of the left ventricular (LV) myocardium suggestive of possible amyloidosis. Subtle global hypokinesis of the left ventricle with left ventricle systolic function at the lower limits of normal. Left ventricular ejection fraction (LVEF) was 55% by 3D and was 55% by my visual estimate. Difficult to fully assess LV diastolic function in the setting of moderate mitral regurgitation. However, probable restrictive LV diastolic filling pattern. 2. Moderate left atrial dilatation by visual assessment. 3. Moderate diffuse thickening of the mitral leaflets. Mild mitral annular calcification. No mitral valve prolapse. No vegetations identified. Moderate mitral regurgitation. No mitral stenosis. Findings suggestive of infiltrative or inflammatory valve disease. 4. Moderate diffuse thickening of the aortic valve, especially along the free margins. No aortic stenosis. No aortic regurgitation. No fusion of the aortic cusps. 5. Suggestive of moderate elevation of estimated right ventricle systolic pressure (at least 52 mmHg). Normal right ventricle size and systolic function. Moderate right atrial dilatation by visual estimate. Structurally normal appearing tricuspid leaflets. Severe tricuspid regurgitation with systolic flow reversal in the hepatic veins. Moderate right atrial dilation by visual assessment. 6. Left pleural effusion. 7. No pericardial effusion. RECOMMENDATIONS: Suggest workup for amyloidosis. Suggest the patient have a cardiac MRI, which to my knowledge can be done at [facility] or alternatively can be done at [facility] or [facility] in [place], [place].
[2019-01-02 04:00] VITALS: BP 158/64
[2019-01-02 06:18] LABS: HEMATOCRIT 37.4 % (42.0-52.0); HEMOGLOBIN 12.1 g/dl (13.5-17.5); MEAN CORPUSCULAR HEMOGLOBIN 28.1 pg (27.0-33.0); MEAN CORPUSCULAR HGB CONC 32.4 g/dl (32.0-36.5); PLATELET COUNT, AUTOMATED 298 10^3/uL (150-450); WHITE BLOOD COUNT 9.8 10^3/uL (4.0-10.0)
[2019-01-02 06:39] LABS: BLOOD UREA NITROGEN 15 MG/DL (7-18); CARBON DIOXIDE LEVEL 27 MEQ/L (21-32); CHLORIDE LEVEL 98 MEQ/L (98-107); CREATININE FOR GFR 0.82 MG/DL (0.70-1.30); GLOMERULAR FILTRATION RATE > 60.0 (>49); GLUCOSE, FASTING 89 MG/DL (70-100); POTASSIUM SERUM 4.2 MEQ/L (3.5-5.1); SODIUM LEVEL 132 MEQ/L (136-145)
[2019-01-02 08:00] VITALS: BP 105/74
[2019-01-02] MEDS: CYANOCOBALAMIN 500 MCG TAB PO SCH (08:58)
[2019-01-02] MEDS: MIDODRINE 5 MG TAB PO SCH ×3 (08:58→17:23)
[2019-01-02] MEDS: OMEPRAZOLE 20 MG CAP PO SCH (08:59)
[2019-01-02] MEDS: FLUDROCORTISONE ACETATE 0.1 MG TAB PO SCH (08:59)
[2019-01-02] MEDS: DOCUSATE SODIUM 100 MG CAP PO SCH (08:59)
[2019-01-02] MEDS: PREGABALIN 50 MG CAP (LYRICA) PO SCH ×2 (08:59→19:34)
--- NOTE | 2019-01-02 09:53 | REP ---
Chest two views HISTORY: Pleural effusion Comparison: 01/01/2019 Patchy density is present in the left lower lobe consistent with atelectasis or infiltrate. The right lung is clear. A small left pleural effusion is present decreased compared to the previous study. There has been resolution of the previously noted small right pleural effusion. The heart is normal in size. The pulmonary vasculature is normal in appearance. The bony structure is intact. IMPRESSION: 1. Left lower lobe atelectasis or infiltrate unchanged compared to the previous study. 2. Small left pleural effusion decreased compared to the previous study. There has been resolution of the previously noted small right pleural effusion. Electronically Signed by Adolfo Henderson MD 01/02/2019 09:45 A
--- NOTE | 2019-01-02 10:38 | IPNPDOC ---
Subjective Date Seen The patient was seen on 01/02/19. Subjective Chief Complaint/HPI Patient sitting in chair as I entered the room. He reports to be feeling better. No new concerns today Constitutional: Denies: Chills, Fever Pulmonary: Reports: Cough (Occassional non-productive cough ); Denies: Dyspnea, Pleuritic Chest Pain Cardiovascular: Denies: Chest Pain, Palpitations, Orthopnea, Edema Gastrointestinal: Denies: Nausea, Vomiting, Abdominal Pain Genitourinary: Reports: Hematuria, Retention (Islas insitu) Psych: Reports: Mood Normal Objective Physical Examination General Exam: Positive: Alert, Cooperative, No Acute Distress ENT Exam: Positive: Mucous membr. moist/pink Neck Exam: Negative: Supple, JVD Chest Exam: Positive: Diminished (valente at B bases); Negative: Rales, Rhonchi, Wheezing Heart Exam: Positive: Rate Normal, Normal S1, Normal S2; Negative: Murmurs Abdomen Exam: Positive: Normal bowel sounds, Soft; Negative: Tenderness Extremity Exam: Positive: Edema (1 mm pitting BLE) Neuro Exam: Positive: Normal Speech Psych Exam: Positive: Mood NL A-FIB/CHADSVASC A-FIB History Current/History of A-Fib/PAF?: No Assessment /Plan Assessment 01/02: -- S/p bilat thoracentesis, and he notes less coughing with deep breath. Diet altered per ST recommendations. Echo suggested amyloidosis; discussed with patient and his , and they report previous workup including abdominal fat pad biopsy. -- CDT Problems (1) Bilateral pleural effusion Status: Acute Discussed With: Casting Associate, Patient Problem Specific Plan: Monitor Clinically, Repeat Labs Problem Text: 01/02/19: S/P Thoracentesis. Spoke with Dr. Coello this morning who plans to perform thoracentesis on left side Chest x-ray this morning IMPRESSION: 1. Left lower lobe atelectasis or infiltrate unchanged compared to the previous study. 2. Small left pleural effusion decreased compared to the previous study. There has been resolution of the previously noted small right pleural effusion Consult in for Dr Coello, Dr Peres spoke with him and he plans to see the patient today. (2) E. coli UTI (urinary tract infection) Status: Acute Response to Treatment: Stable Problem Text: 01/02/19: Urine culture with e-coli 100,000 count. Cre Clearance 62. Will start patient on Macrobid 100 mg i po bid for 5 days (3) Dysphagia Status: Acute Response to Treatment: Stable Problem Text: 01/02/19: Speech therapy consulted. Cookie swallow eval ordered (4) Hematuria Status: Acute Response to Treatment: Stable Problem Specific Plan: Monitor Clinically, Repeat Labs Problem Text: 01/02/19: Improving. Patient with UTI. Started on Macrobid Pt had islas placed on 12/29 for urinary retention in the ER, Hgb 12.4 yest, 11.4 today, cont to monitor. Uro has not yet been consulted, his bleeding appears to have slowed if this remains, will f/u with Uro as an outpt. (5) Orthostatic hypotension Status: Chronic Problem Text: On Midodrine and Florinef (6) Lymphoblastic diffuse lymphoma Status: Chronic Response to Treatment: Stable Problem Specific Plan: Monitor Clinically Problem Text: Completed round 4 Chemo on 12/26, follows with Dr Ayers. We will speak with her today regarding current status. Plan/VTE VTE Prophylaxis Ordered?: No VTE Exclusion Mechanical Proph: N/A:VTE Prophy Ordered VTE Exclusion Pharmacological: Active Bleeding (Hematuria) VS, I&O, 24H, Fishbone Vital Signs/I&O Vital Signs Date Time Temp Pulse Resp B/P (MAP) Pulse Ox O2 Delivery O2 Flow Rate FiO2 01/02/19 08:00 97.4 101 18 105/74 (84) 96 12/31/18 20:07 Room Air I&O- Last 24 Hours up to 6 AM 01/02/19 06:00 Intake Total 1040 ml Output Total 775 ml Balance 265 ml Laboratory Data 24H LABS Laboratory Tests 2 01/01/19 15:15: Body Fluid pH 7.620, Body Fluid pH Source PLEURAL, Body Fluid WBC (Auto) 148H, Body Fluid RBC (Auto) < 2, Body Fluid Mononuclear Cells % Auto 75.7H, Fluid Polymorphonuclear Cell % Auto 24.3H, Body Fluid Glucose Source PLEURAL, Body Fluid Glucose 108, Body Fluid Protein Source PLEURAL, Body Fluid Total Protein 1.6, Body Fluid Albumin Source PLEURAL, Body Fluid Albumin 1.3, Body Fluid LDH Source PLEURAL, Body Fluid Lactate Dehydrogenase 37, Body Fluid Amylase Source PLEURAL, Body Fluid Amylase 8, Body Fluid Cholesterol < 50, Body Fluid Cholesterol Source PLEURAL, Body Fluid Triglyceride Source PLEURAL, Body Fluid Triglycerides 8, Pleural Fluid Source PLEURAL, Pleural Fluid Color YELLOW, Pleural Fluid Appearance HAZY 01/02/19 05:21: Nucleated Red Blood Cells % (auto) 0.0, Anion Gap 7L, Glomerular Filtration Rate > 60.0, Blood Urea Nitrogen 15, Creatinine 0.82, Sodium Level 132L, Potassium Level 4.2, Chloride Level 98, Carbon Dioxide Level 27, Calcium Level 9.0 CBC/BMP Laboratory Tests 01/02/19 05:21 Red Blood Count 4.30, Mean Corpuscular Volume 87.0, Mean Corpuscular Hemoglobin 28.1, Mean Corpuscular Hemoglobin Concent 32.4, Red Cell Distribution Width 17.2 H, Calcium Level 9.0 Microbiology Microbiology 01/01/19 Acid Fast Stain, Received Pending 01/01/19 Mycobacterial Culture, Received Pending 01/01/19 Fungal Smear, Received Pending 01/01/19 Fungal Culture, Received Pending 01/01/19 Gram Stain, Received Pending 01/01/19 Anaerobic Culture, Received Pending 01/01/19 Body Fluid Culture, Received Pending 12/31/18 Urine Culture - Final, Complete Escherichia Coli [employer] Jan 02, 2019 10:38 RADHA SANDRA DO January 04, 2019 00:34
[2019-01-02] MEDS ORDERED: VARIBAR PUDDING 40% w/v 230ML TUBE As Ordered ONE (10:56)
[2019-01-02] MEDS ORDERED: E-Z-PAQUE 96% w/w SUSP 176GM BTL As Ordered ONE (10:57)
[2019-01-02] MEDS ORDERED: VARIBAR NECTAR 40% w/v 240ML SUSP BTL As Ordered ONE (10:57)
[2019-01-02] MEDS: NITROFURANTOIN (MACROBID) 100 MG CAP PO SCH ×2 (11:52→19:34)
[2019-01-02 12:00] VITALS: BP 116/84
[2019-01-02] MEDS ORDERED: BARIUM SULFATE 700 MG TABLET (E-Z-DISK) As Ordered ONE (12:05)
--- NOTE | 2019-01-02 12:34 | IPN ---
DATE: 01/02/2019 Considering that x-ray took off 1.5 liters yesterday from his right lung, he states that while he is breathing a bit better it is not dramatic. What is significant however is that he is coughing less. He is not complaining of any pain. His vital signs show a maximum temperature (Tmax) of 98.3 with a heart rate that ranges between 101-60 in a sinus rhythm, respiratory rate of 18-20 without the use of accessory muscles, who is 93% saturated on room air. Blood pressure is ranging between 158/64-105/74. Intake and output for the past 24 hours has been recorded as 900 in and 775 out for a positivity of 125 mL. His urine looks to be clearing up and nonhemorrhagic. Weight today is 112.7 kg compared to 71.1 kg yesterday. I suspect there is a major discrepancy in the scales or that may represent pounds rather kilograms. Nonetheless, it is quite spurious considering he was 72.7 kg 2 days ago. On physical examination, his lungs show equal breath sounds on either side. Percussion note is dull on the left hemithorax. He has partial E-to-A egophony in the left base. Cardiac exam is without murmurs, clicks, gallops, or rubs. I cannot feel his point of maximal impulse (PMI). S1 and S2 are normal. Abdomen is soft, nontender. Bowel sounds are positive. There is no hepatomegaly and no costovertebral angle tenderness. Extremities show 1-2+ pretibial edema and no calf tenderness. No differential swelling of the upper extremities. Skin is warm, dry, and perfused without cyanosis or mottling, including that of the nail beds and the knees. Neck is supple. There is no jugular venous distention. No subcutaneous emphysema. Trachea is midline. Mouth shows his mucous membranes to be pink and moist. Lips and commissures are without lesions. There is no thrush. Eyes show his pupils to be equal and reactive. Extraocular motor intact. Sclerae are nonicteric. Neurologic shows gross motor and gross sensation intact along with gross II-XII intact. He does have a known peripheral neuropathy. His white count today is 9.8 with hemoglobin and hematocrit of 12.1 and 37.4, essentially unchanged from yesterday, with a platelet count of 298 and stable. Chemistries today show markedly low sodium of 132 with the remainder of his electrolytes normal with BUN and creatinine of 15 and 0.82. Calcium is 9.0 with a glucose of 89. His albumin yesterday was 3.5 with a corresponding calcium of 8.6. Notably, his pleural fluid has come back with a pH of 7.62 with a glucose of 108 and LDH of 37 with a total protein of 1.6 with a corresponding serum LDH of 139 and total protein of 5.7. His white count is 148, 75% of which are lymphocytes and 24 are PMN. This, therefore looks like a transudative lymphocytic/monocytic effusion. It is notable that his triglycerides are only 8. This does not look to be a chyle effusion but rather transudative. His echocardiogram done yesterday shows a left ventricular ejection fraction of 55%. He had severe left ventricular hypertrophy with what Dr. Hernandez terms as speckle pattern may be suggestive of amyloidosis. He has moderate left atrial dilation. He does have also severe tricuspid regurgitation with right systolic pressures of 52 with a normal size and systolic function. IMPRESSION: 1. Bilateral pleural effusions transudative. 2. Waldenstrom's macroglobulinemia. 3. B-cell lymphoma 4. Orthostatic hypotension. 5. BPH with hematuria status post traumatic [place] insertion. 6. Gastroesophageal reflux disease (GERD). 7. Probable swallowing dysfunction with choking with liquids. PLAN AND DISCUSSION: As noted above, his effusion is transudative and monocytic/lymphocytic. It is not chylous and I cannot assign it to his Waldenstrom's macroglobulinemia. His echocardiogram shows severe tricuspid regurgitation with left ventricular concentric hypertrophy. I suspect he does have diastolic dysfunction and that could be a cause for his bilateral pleural effusions. The severe tricuspid regurgitation could explain his peripheral edema. He certainly has Waldenstrom's macroglobulinemia and amyloidosis can accompany Waldenstrom. His light chains are markedly elevated even measured a few days ago. This would explain his left ventricular hypertrophy and diastolic dysfunction. I will have x-ray do a thoracentesis on the other side for symptom control. We will have to observe him to see if the fluid returns. I would be quite aloof to do something more permanent such as a PleurX catheter as it would nutritionally deplete him.
[2019-01-02] MEDS: NORTRIPTYLINE 10 MG CAP PO SCH ×2 (13:48→19:34)
--- NOTE | 2019-01-02 14:30 | NUR ---
Pt presents with mild-moderate oropharyngeal phase dysphagia as characterized by: reduced coordination of solid bolus, slowed a/p transfer, significant vallecular residue, decreased opening of the UES inconsistently. Recommend: Level 2 (NDD) solids and thin liquids (no straws). Chin tuck with each swallow. OOB and in full upright position for all meals. Meds whole with liquid wash in full upright position. Please change to nectar thick liquids should Pt c/o heavy chest sensation, fever and/or increased cough. Addendum: 01/02/19 at 1430 by MOMO SHORT ROBBI Amended: Links added.
[2019-01-02 16:30] VITALS: BP 123/86
[2019-01-02 16:41] LABS: PH BODY FLUID 7.602 UNITS (NOT ESTABLISHED); SOURCE, BODY FLUID pH PLEURAL
--- NOTE | 2019-01-02 16:49 | CR ---
DATE OF CONSULTATION: 01/01/2019 The patient is seen at the request of Dr. Gerald Peres for bilateral pleural effusions. HISTORY OF THE PRESENT ILLNESS: The patient is a 63-year-old white male who presents to the emergency room with hematuria after a traumatic [place] insertion 2 days ago. He was found to have urinary retention at that point in time. More significantly, he has progressive shortness of breath over the last week or so. It is not extraordinarily bothersome, but he has noticed not being able to take a deep breath and be air satisfied. Accompanying this has been a nonproductive cough. Significantly, he states that he coughs and chokes when he eats and particularly drinks fluids. Denies chest pain. There have been no fevers, chills or sweats. He has had no palpitations. As noted below, his past medical history is significant for Waldenstrom's macroglobulinemia, along with B-cell lymphoma. He has had four treatments of rituximab. He has orthostatic hypotension with hyponatremia for which he is on an alpha agonist, midodrine and a mineralocorticoid consisting of fludrocortisone. I am asked to see him for his bilateral pleural effusions. PAST MEDICAL HISTORY: As above with Waldenstrom's macroglobulinemia, cytoplasmic B-cell lymphoma, orthostatic hypotension, prior hypertension, peripheral neuropathy secondary to chemotherapy. ALLERGIES: BORTEZOMIB, DULOXETINE and GABAPENTIN. PAST SURGICAL HISTORY: Vasectomy in 1985. Bilateral inguinal hernia repairs. Colonoscopy. Umbilical hernia repair. Carpal tunnel. Cystoscopy in October of 2018. MEDICATIONS AT HOME: - Tylenol 325 mg four times a day as needed for pain - aspirin 81 mg daily - vitamin B12 500 mg daily - Colace 100 mg daily - finasteride 5 mg by mouth every evening - fludrocortisone 0.1 mg daily - midodrine 10 mg three times a day - nortriptyline 10 mg twice a day - omeprazole 40 mg daily - MiraLAX 17 grams daily as needed for constipation - Lyrica 50 mg by mouth twice a day TRAVEL HISTORY: He has been to the [facility] and to [place] and [place] when in the . EXPOSURES: No present dogs, birds or cats at home. HABITS: Former smoker, two packs per day. He quit in 1975 but started at around 8 years old. Alcohol socially and very rarely. Illicit drugs: None. REVIEW OF SYSTEMS: CONSTITUTIONAL: See history of the present illness. Without fevers, chills, sweats or night sweats. EYES: Without diplopia, without amaurosis fugax, without prior jaundice. NOSE: Without epistaxis. MOUTH: Has his own teeth. RESPIRATORY: See history of the present illness. CARDIAC: See history of the present illness. No prior history of myocardial infarctions. He does have peripheral edema. GASTROINTESTINAL: The above coughing and choking with swallowing. Without diarrhea, constipation, melena, hematochezia, hematemesis or abdominal pain. Without nausea and vomiting. GENITOURINARY: With hematuria and previous urinary tract retention. ENDOCRINE: Without diabetes or thyroid disease. HEMATOLOGIC: Without prolonged bleeding times. With the above lymphoma and macroglobulinemia. NEUROLOGIC: With peripheral neuropathy but without paralyses. He does give a history of falling to the ground, and his says that he has shaking episodes such that he clenches and flexes all of his extremities and then becomes incontinent. He has no memory of the event. These have been described before and are thought not to be seizures, although clinically from the description that his gives, it sure sounds like a seizure rather than a syncopal event. PSYCHIATRIC: Without pathological anxieties, depression or psychoses. PHYSICAL EXAMINATION: Well-developed, well-nourished, chronically ill looking white male in no acute distress. VITAL SIGNS: Temperature 97.0, pulse 98 and is sinus rhythm, respirations 18 without the use of accessory muscles, who is 100% saturated on room air and whose blood pressure is 98/74. EYES: Pupils equal, round and reactive to light. Extraocular motor intact. Sclerae nonicteric. NOSE: Without deformity. MOUTH: Shows his mucous membranes to be pink and moist. Lips and commissures without lesions. There is no thrush. HEAD: Head is normocephalic. NECK: Neck is supple. There is no jugular venous distention. No subcutaneous emphysema. Trachea is midline. LUNGS: Show equal breath sounds on either side with dull percussion notes at the bases. There is partial E to A egophony on both sides with some bronchophony on the right greater than the left. CARDIAC: Cardiac exam is without murmurs, clicks, gallops or rubs. I cannot feel his point of maximum impulse (PMI). S1, S2 are normal. ABDOMEN: Soft, nontender. Bowel sounds are positive. There is no hepatomegaly. No costovertebral angle (CVA) tenderness. EXTREMITIES: Show trace pretibial edema and 1 to 2+ ankle edema. There is no calf tenderness. No differential swelling of the upper extremities. SKIN: Warm, dry and perfused without cyanosis or mottling, including that of the nail beds and the knees. NEUROLOGIC: Shows II-XII intact along with gross motor and gross sensation intact. Gait is not tested. PSYCHIATRIC: Shows him to be awake and alert, oriented times three with appropriate mood and affect and conversational. INVESTIGATIONS: His white count today is 9.5 with a hemoglobin and hematocrit of 11.4 and 35.3 respectively. Platelet count is 283 and differential shows 66% neutrophils, 19% lymphocytes, 11% monocytes. There are no immature forms. No toxic granulations. Chemistries: This morning show marginally low sodium of 134 with a BUN and creatinine of 13 and 0.84, a glucose of 82 and a calcium of 8.6 with a corresponding albumin of 3.5. His total bilirubin is 1.1, slightly elevated, with a normal ALT and AST. PT/INR of 15.3 and 1.19 respectively. Urinalysis showed 3+ protein, positive for blood and leukocyte esterase with 7 to 10 white cells per high power field. His chest x-ray done on 12/31/2018 in the emergency room. ADDENDUM: (Continuation) His x-ray done in the emergency room, PA and lateral, shows bilateral pleural effusions. The lateral view shows the fluid level to be approximately a third of the way up the chest. I see no infiltrates. Lungs otherwise are expanded to the chest wall. His chest CT also done while in the emergency room confirms bilateral pleural effusions. Great vessels are intact. It is done without contrast. He has compression atelectasis of both lower lobes. The pleural effusions are about equal on either side. I see minimal emphysematous changes in the upper lobes. I do not appreciate significant mediastinal lymphadenopathy, but the responsiveness of the images on the computer are unacceptably slow and I will have to review it more completely later and include it in a later note. IMPRESSION: 1. Bilateral pleural effusions, unknown origin. 2. Waldenstrom's macroglobulinemia. 3. Cytoplasmic B-cell lymphoma. 4. Orthostatic hypotension, unknown origin. 5. Gastroesophageal reflux disease. 6. History of choking with swallowing. 7. Migraine headaches. 8. Hyperlipidemia. PLAN AND DISCUSSION: I am consulted for his pleural effusions. Nonetheless, I think he should undergo a neurologic workup for what seems to be clinically seizures. Furthermore, he has voice changes with choking, and he should be seen by Ear, Nose and Throat (ENT) to evaluate his vocal cords. A swallowing study would be in order. As far as his pleural effusions go, I am not sure of the origins. I will review his echocardiogram, which has been ordered. Usual bilateral effusions usually accompany heart failure rather than malignancy. Nonetheless, he has Waldenstrom's macroglobulinemia and chylous effusions have been described, and I will have him undergo an ultrasound-guided thoracentesis in x-ray and send his specimens off for the requisite lab studies. I do not think that this is infectious in nature. .
[2019-01-02 16:50] LABS: APPEARANCE, BODY FLUID CLEAR (CLEAR); PLEURAL FL COLOR PALE YELLOW (COLORLESS); SOURCE, BODY FLUID PLEURAL
[2019-01-02 16:55] LABS: AMYLASE, BODY FLUID 7 U/L (NOT ESTABLISHED); CHOLESTEROL, BODY FLUID < 50 MG/DL (NOT ESTABLISHED); LDH, BODY FLUID 46 U/L (NOT ESTABLISHED); SOURCE, BODY FLUID ALBUMIN PLEURAL; SOURCE, BODY FLUID AMYLASE PLEURAL; SOURCE, BODY FLUID CHOL PLEURAL; SOURCE, BODY FLUID GLUCOSE PLEURAL; SOURCE, BODY FLUID LDH PLEURAL; SOURCE, BODY FLUID TOT PROTEIN PLEURAL; SOURCE, BODY FLUID TRIG PLEURAL; TOTAL PROTEIN, BODY FLUID 1.4 G/DL (NOT ESTABLISHED); TRIGLYCERIDE, BODY FLUID 7 MG/DL (NOT ESTABLISHED)
[2019-01-02 17:00] VITALS: BP 120/94
--- NOTE | 2019-01-02 17:07 | REP ---
CHEST, TWO VIEWS: Two views of the chest are performed and compared to prior study of the same day. The patient had left thoracentesis and there is decreased amount of left pleural fluid, with mild residual. Right lung is unchanged in appearance. There is no pneumothorax. The heart and mediastinum are unchanged. IMPRESSION: Decreased amount of left pleural fluid, status post left thoracentesis. No pneumothorax. Electronically Signed by Piotr Corona MD 01/03/2019 04:49 P
[2019-01-02] MEDS: FINASTERIDE 5 MG TAB PO SCH (17:23)
[2019-01-02] MEDS ORDERED: SLF 3 ML SYR IV PRN (17:30)
[2019-01-02 20:00] VITALS: BP 121/95
[2019-01-02] MEDS: SLF 3 ML SYR IV SCH (20:50)
[2019-01-02] MEDS ORDERED: NITROFURANTOIN (MACROBID) 100 MG CAP PO SCH (21:00)
[2019-01-03] VITALS (7 sets, daily range): BP systolic 109–145; BP diastolic 76–93
[2019-01-03] MEDS: SLF 3 ML SYR IV SCH ×3 (06:00→21:00)
[2019-01-03 06:07] LABS: BLOOD UREA NITROGEN 15 MG/DL (7-18); CALCIUM LEVEL 8.6 MG/DL (8.8-10.2); CARBON DIOXIDE LEVEL 28 MEQ/L (21-32); CHLORIDE LEVEL 100 MEQ/L (98-107); CREATININE FOR GFR 0.76 MG/DL (0.70-1.30); GLOMERULAR FILTRATION RATE > 60.0 (>49); GLUCOSE, FASTING 96 MG/DL (70-100); POTASSIUM SERUM 4.3 MEQ/L (3.5-5.1); SODIUM LEVEL 132 MEQ/L (136-145)
--- NOTE | 2019-01-03 07:25 | IPNPDOC ---
Subjective Date Seen The patient was seen on 01/03/19. Subjective Chief Complaint/HPI Patient lying in bed comfortably as I entered the room. He reports to be feeling better. He continues to report cough, mainly with food and fluid consumption. No sputum production, SOB, no chest pain, no pleuritic pain. Constitutional: Denies: Chills, Fever Pulmonary: Reports: Cough; Denies: Dyspnea, Pleuritic Chest Pain Cardiovascular: Reports: Edema; Denies: Chest Pain, Palpitations, Orthopnea Gastrointestinal: Denies: Nausea, Vomiting, Abdominal Pain, Constipation Genitourinary: Reports: Other Symptoms (urinary retention with islas in-situ) Psych: Reports: Mood Normal Objective Physical Examination General Exam: Positive: Alert, Cooperative, No Acute Distress ENT Exam: Positive: Mucous membr. moist/pink Neck Exam: Negative: Supple, JVD Chest Exam: Positive: Clear to auscultation; Negative: Rales, Rhonchi, Wheezing Heart Exam: Positive: Rate Normal, Normal S1, Normal S2; Negative: Murmurs Abdomen Exam: Positive: Normal bowel sounds, Soft; Negative: Tenderness Extremity Exam: Positive: Edema (1 mm pitting BLE) Neuro Exam: Positive: Normal Speech Psych Exam: Positive: Mood NL A-FIB/CHADSVASC A-FIB History Current/History of A-Fib/PAF?: No Assessment /Plan Assessment 01/03 -- Discussed patient at length with his PCP, Dr. Scott. Discussed current condition and previous workup. Dr. Scott had concerns re: his ability to care for himself at home, and felt that he might do well with short term rehab. Patient and his were not enthusiastic. Discussed with Dr. Coello, who is signing off this case; called and left a message with a nurse from oncology, though I did not reach Dr. Ayers, and we'll need to try again to reach her tomorrow. Problems (1) Bilateral pleural effusion Status: Acute Discussed With: Pricing Analyst, Patient Problem Specific Plan: Monitor Clinically, Repeat Labs Problem Text: 01/03/19: S/P Thoracentesis left side. Patient tolerated procedure. Repeat chest x-ray. Dr. Coello continues to follow IMPRESSION: Decreased amount of left pleural fluid, status post left thoracentesis. No pneumothorax. 01/02/19: S/P Thoracentesis. Spoke with Dr. Coello this morning who plans to perform thoracentesis on left side Chest x-ray this morning IMPRESSION: 1. Left lower lobe atelectasis or infiltrate unchanged compared to the previous study. 2. Small left pleural effusion decreased compared to the previous study. There has been resolution of the previously noted small right pleural effusion Consult in for Dr Coello, Dr Peres spoke with him and he plans to see the patient today. (2) E. coli UTI (urinary tract infection) Status: Acute Response to Treatment: Stable Problem Text: 01/03/19: Currently on Macrobid 100mg po bid. No fevers, chills. Patient with hx of BPH and urinary retention. He follows with urology and will need to schedule an appt for f/u with them upon his discharge CDT -- switched to fluoroquinolone. 01/02/19: Urine culture with e-coli 100,000 count. Cre Clearance 62. Will start patient on Macrobid 100 mg i po bid for 5 days (3) Dysphagia Status: Acute Response to Treatment: Stable Problem Text: 01/03/19: Swallow eval performed yesterday. Results still pending at time of this note. His diet was changed from nectar thick back to regular. He continues to report cough and choking sensation with food and liquid consumption. Speech therapy is following. He may need to f/u with ENT or GI upon discharge for further evaluation 01/02/19: Speech therapy consulted. Meliza swallow eval ordered (4) Hematuria Status: Acute Response to Treatment: Stable Problem Specific Plan: Monitor Clinically, Repeat Labs Problem Text: 01/03/19: Improving 01/02/19: Improving. Patient with UTI. Started on Macrobid Pt had islas placed on 12/29 for urinary retention in the ER, Hgb 12.4 yest, 11.4 today, cont to monitor. Uro has not yet been consulted, his bleeding appears to have slowed if this remains, will f/u with Uro as an outpt. (5) Orthostatic hypotension Status: Chronic Problem Text: On Midodrine and Florinef (6) Lymphoblastic diffuse lymphoma Status: Chronic Response to Treatment: Stable Problem Specific Plan: Monitor Clinically Problem Text: Completed round 4 Chemo on 12/26, follows with Dr Ayers. We will speak with her today regarding current status. Plan/VTE VTE Prophylaxis Ordered?: No VTE Exclusion Mechanical Proph: N/A:VTE Prophy Ordered VTE Exclusion Pharmacological: Active Bleeding (Hematuria) VS, I&O, 24H, Fishbone Vital Signs/I&O Vital Signs Date Time Temp Pulse Resp B/P (MAP) Pulse Ox O2 Delivery O2 Flow Rate FiO2 01/03/19 04:00 97.5 102 18 109/76 (87) 93 12/31/18 20:07 Room Air I&O- Last 24 Hours up to 6 AM 01/03/19 06:00 Intake Total 660 ml Output Total 1350 ml Balance -690 ml Laboratory Data 24H LABS Laboratory Tests 2 01/02/19 15:45: Body Fluid pH 7.602, Body Fluid pH Source PLEURAL, Body Fluid WBC (Auto) 289H, Body Fluid RBC (Auto) < 2, Body Fluid Mononuclear Cells % Auto 84.0H, Fluid Polymorphonuclear Cell % Auto 16.0H, Body Fluid Glucose Source PLEURAL, Body Fluid Glucose 113, Body Fluid Protein Source PLEURAL, Body Fluid Total Protein 1.4, Body Fluid Albumin Source PLEURAL, Body Fluid Albumin 1.1, Body Fluid LDH Source PLEURAL, Body Fluid Lactate Dehydrogenase 46, Body Fluid Amylase Source PLEURAL, Body Fluid Amylase 7, Body Fluid Cholesterol < 50, Body Fluid Cholesterol Source PLEURAL, Body Fluid Triglyceride Source PLEURAL, Body Fluid Triglycerides 7, Pleural Fluid Source PLEURAL, Pleural Fluid Color PALE YELLOW, Pleural Fluid Appearance CLEAR 01/03/19 05:06: Anion Gap 4L, Glomerular Filtration Rate > 60.0, Blood Urea Nitrogen 15, Creatinine 0.76, Sodium Level 132L, Potassium Level 4.3, Chloride Level 100, Carbon Dioxide Level 28, Calcium Level 8.6L CBC/BMP Laboratory Tests 01/03/19 05:06 Calcium Level 8.6 L Microbiology Microbiology 01/02/19 Acid Fast Stain, Received Pending 01/02/19 Mycobacterial Culture, Received Pending 01/02/19 Fungal Smear, Received Pending 01/02/19 Fungal Culture, Received Pending 01/02/19 Gram Stain, Received Pending 01/02/19 Anaerobic Culture, Received Pending 01/02/19 Body Fluid Culture, Received Pending 01/01/19 Acid Fast Stain, Received Pending 01/01/19 Mycobacterial Culture, Received Pending 01/01/19 Fungal Smear, Received Pending 01/01/19 Fungal Culture, Received Pending 01/01/19 Gram Stain - Final, Complete 01/01/19 Anaerobic Culture - Final, Complete 01/01/19 Body Fluid Culture - Final, Complete 12/31/18 Urine Culture - Final, Complete Escherichia Coli CESAR SCHNEIDER January 03, 2019 07:25 RADHA SANDRA DO January 04, 2019 00:42
[2019-01-03] MEDS: MIRALAX *UNIT DOSE* 17GM PACKET PO PRN (09:19)
[2019-01-03] MEDS: MIDODRINE 5 MG TAB PO SCH ×3 (09:19→18:42)
[2019-01-03] MEDS: PREGABALIN 50 MG CAP (LYRICA) PO SCH ×2 (09:20→18:43)
[2019-01-03] MEDS: NITROFURANTOIN (MACROBID) 100 MG CAP PO SCH (09:20)
[2019-01-03] MEDS: DOCUSATE SODIUM 100 MG CAP PO SCH (09:20)
[2019-01-03] MEDS: OMEPRAZOLE 20 MG CAP PO SCH (09:20)
[2019-01-03] MEDS: CYANOCOBALAMIN 500 MCG TAB PO SCH (09:20)
[2019-01-03] MEDS: FLUDROCORTISONE ACETATE 0.1 MG TAB PO SCH (09:20)
--- NOTE | 2019-01-03 09:31 | REP ---
COOKIE SWALLOW The procedure was performed under the direct supervision of Dr. Corona. The procedure was performed with Vashti Adkins from speech pathology present. 5 ml aliquots of thin, pudding, fruit, soft food, and solid consistency barium were administered. With thin consistency barium there is laryngeal penetration. The detailed report of this examination will be provided by speech pathology. 2.5 minutes of fluoroscopy time was utilized for this procedure. Reviewed by VIOLET Durbin 01/02/2019 04:35 P Electronically Signed by Piotr Corona MD 01/03/2019 09:22 A
--- NOTE | 2019-01-03 10:51 | REP ---
Chest two views HISTORY: Pleural effusion Comparison: 12/16/2018 The lungs are clear. A small left pleural effusion is present decreased compared to the previous study. The heart is normal in size. The pulmonary vasculature is normal in appearance. The bony structure is intact. IMPRESSION: Left pleural effusion decreased compared to the previous study. Electronically Signed by Adolfo Henderson MD 01/03/2019 10:42 A
[2019-01-03] MEDS: SALIVA SUBSTITUTE(MOUTHKOTE) BTL MT PRN (12:09)
[2019-01-03] MEDS: NORTRIPTYLINE 10 MG CAP PO SCH ×2 (13:29→19:33)
[2019-01-03] MEDS: LevoFLOXacin 750 MG TABLET PO SCH (13:29)
--- NOTE | 2019-01-03 16:44 | REP ---
ULTRASOUND GUIDED LEFT THORACENTESIS The procedure was performed under the direct supervision of Dr. Corona. The risks and benefits of the procedure were explained to the patient and informed consent was obtained. The left pleural effusion was localized using ultrasound guidance. The skin was prepped and draped in a sterile fashion. 1% lidocaine was used as a local anesthetic. Using ultrasound guidance an 8-[place] multi side-hole catheter was inserted using trocar technique. 880 ml of scar colored fluid was withdrawn and sent to lab for analysis. The patient tolerated the procedure well and there were no immediate complications. After the appropriate amount of monitored convalescence the patient was discharged from the department. Reviewed by VIOLET Durbin 01/03/2019 04:33 P Electronically Signed by Piotr Corona MD 01/03/2019 04:33 P
[2019-01-03] MEDS: FINASTERIDE 5 MG TAB PO SCH (18:42)
[2019-01-03] MEDS ORDERED: SENNA 8.6 MG TAB (SENOKOT) PO PRN (19:15)
[2019-01-03] MEDS: MOM 30ML SUSPENSION UDC PO PRN (19:33)
--- NOTE | 2019-01-03 20:01 | IPN ---
DATE: 01/03/2019 Mr. Del Cid had his left sided pleural effusion tapped yesterday. The report has not been dictated so I do not know exactly how much was taken off but certainly his x-ray is clear today. He is certainly breathing better today. His vital signs show a maximum temperature (Tmax) of 98.1 with a heart rate that ranges between 102 and 105 in a sinus rhythm, respiratory rate that is constant at 18 without the use of accessory muscles, who is 93% saturated on room air. Blood pressure is ranging between 120/87 to 146/88. Intake and output for the past 24 hours has been recorded as 900 in and 750 out for a positivity of 150 mL. He weighs 70.5 kg compared to 71.1 kg two days ago. PHYSICAL EXAMINATION LUNGS: His lungs show equal breath sounds on either side. There is a little bit of bronchophony in the left lower hemithorax but no E/A egophony. Percussion notes are full to the diaphragm. CARDIAC EXAM: Is surprisingly without murmurs, clicks, gallops or rubs. This, even with the knowledge of wide open tricuspid regurgitation. I cannot feel his point of maximum impulse (PMI). S1, S2 are normal. ABDOMEN: Soft, nontender. Bowel sounds positive. There is no hepatomegaly. No costovertebral angle tenderness. EXTREMITIES: Show no pretibial edema. No calf tenderness. No differential swelling of the upper extremities. SKIN: Warm, dry and perfused without cyanosis or mottling, including that of the nail beds and knees. NECK: Supple. There is no jugular venous distention. No subcutaneous emphysema. Trachea is midline. MOUTH: Shows his mucous membranes to be pink and moist. Lips and commissures without lesions. There is no thrush. EYES: Show his pupils to be equal and reactive. Extraocular motion intact. Sclerae anicteric. NEUROLOGIC: Shows II through XII intact with gross motor and gross sensation intact. Gait is not tested. PSYCHIATRIC: Shows him to be awake and alert, oriented times three with appropriate mood and affect and conversational. His white count today is 9.8 with hemoglobin and hematocrit of 12.1 and 37.4, with a platelet count of 298. There is no differential. Electrolytes are unchanged from yesterday with a marginally low sodium of 132 and the remainder of electrolytes are normal. BUN and creatinine are 15 and 0.76. Glucose is 96 and calcium of 8.6. Pleural fluid now since yesterday on the left side shows a pH of 7.60 with a glucose of 113, LDH of 46, and a total protein of 1.4. This again makes it a transudative effusion. His white count was 289 with predominant monocytes and lymphocytes. Cytology cell block does not show overt malignancy but has been sent for flow cytometry. This was fluid from yesterday's thoracentesis and is recorded as 1500 mL. Chest x-ray today shows his lung fully expanded to the chest wall and both costophrenic angles are sharp. I see no other infiltrates. IMPRESSION: 1. Bilateral pleural effusions, transudative. 2. Waldenstrom's macroglobulinemia. 3. B-cell lymphoma 4. Orthostatic hypotension. 5. Benign prostatic hypertrophy (BPH) with hematuria status post traumatic [place] insertion. 6. Gastroesophageal reflux disease (GERD). 7. Probable swallowing dysfunction with choking on liquids. 8. Severe left ventricular hypertrophy, possibly amyloidosis. 9. Wide open tricuspid regurgitation. PLAN AND DISCUSSION: From a mechanical point of view, the pleural effusions have been addressed. The cause of the pleural effusions is still unclear, although I am certainly leaning towards a cardiac origin. Even if the flow cytometry showed B cells consistent with lymphoma, I would tend to doubt this is a malignant effusion when we have a better explanation arising from his heart with diastolic dysfunction and tricuspid regurgitation. This will be a very difficult problem to treat. He already has Dr. Stark as a marine equipment design engineer and I would suggest we get him involved. I have just talked with Dr. Steele in regard to continuing an amyloidosis workup. I will therefore sign off his care as the pleural effusions are now at least for the time being at bay. As noted yesterday, I would be reluctant to place a PleurX catheter as that would nutritionally deplete him. His discharge should be determined by the primary care physicians.
[2019-01-04 04:00] VITALS: BP 121/71
[2019-01-04] MEDS: LevoFLOXacin 750 MG TABLET PO SCH (06:00)
[2019-01-04] MEDS: SLF 3 ML SYR IV SCH ×3 (06:00→19:36)
[2019-01-04 06:21] LABS: BLOOD UREA NITROGEN 16 MG/DL (7-18); CALCIUM LEVEL 8.8 MG/DL (8.8-10.2); CARBON DIOXIDE LEVEL 28 MEQ/L (21-32); CHLORIDE LEVEL 99 MEQ/L (98-107); CREATININE FOR GFR 0.79 MG/DL (0.70-1.30); GLOMERULAR FILTRATION RATE > 60.0 (>49); GLUCOSE, FASTING 81 MG/DL (70-100); POTASSIUM SERUM 4.2 MEQ/L (3.5-5.1); SODIUM LEVEL 132 MEQ/L (136-145)
[2019-01-04 08:00] VITALS: BP 101/70
[2019-01-04] MEDS: OMEPRAZOLE 20 MG CAP PO SCH (08:45)
[2019-01-04] MEDS: MIDODRINE 5 MG TAB PO SCH ×3 (08:45→17:20)
[2019-01-04] MEDS: FLUDROCORTISONE ACETATE 0.1 MG TAB PO SCH (08:46)
[2019-01-04] MEDS: CYANOCOBALAMIN 500 MCG TAB PO SCH (08:46)
[2019-01-04] MEDS: PREGABALIN 50 MG CAP (LYRICA) PO SCH ×2 (08:46→19:30)
[2019-01-04] MEDS: DOCUSATE SODIUM 100 MG CAP PO SCH (08:46)
--- NOTE | 2019-01-04 09:41 | REP ---
Chest two views HISTORY: Pleural effusion Comparison: 01/03/2019 The lungs are clear. Small bilateral pleural effusions are present The heart is normal in size. The pulmonary vasculature is normal in appearance. The bony structure is intact. IMPRESSION: Small bilateral pleural effusions unchanged on the left and increased on the right. Electronically Signed by Adolfo Henderson MD 01/04/2019 09:33 A
[2019-01-04] MEDS: MOM 30ML SUSPENSION UDC PO PRN (10:27)
[2019-01-04 12:00] VITALS: BP 109/93
[2019-01-04] MEDS: NORTRIPTYLINE 10 MG CAP PO SCH ×2 (13:11→19:36)
[2019-01-04 16:00] VITALS: BP 105/67
[2019-01-04] MEDS: FINASTERIDE 5 MG TAB PO SCH (17:20)
[2019-01-04] MEDS ORDERED: FUROSEMIDE 10MG PER 1/2 TABLET PO ONE (19:00)
[2019-01-04 19:32] VITALS: BP 92/60
--- NOTE | 2019-01-04 23:30 | IPNPDOC ---
Subjective Date Seen The patient was seen on 01/04/19. Subjective Chief Complaint/HPI Patient reports to be feeling well. He slept well throughout the night. Offers no complaints today. Constitutional: Denies: Chills, Fever Pulmonary: Denies: Dyspnea, Cough Cardiovascular: Denies: Chest Pain, Palpitations, Orthopnea, Edema Gastrointestinal: Denies: Nausea, Vomiting, Abdominal Pain, Constipation Psych: Reports: Mood Normal Objective Physical Examination General Exam: Positive: Alert, Cooperative, No Acute Distress ENT Exam: Positive: Mucous membr. moist/pink Neck Exam: Negative: Supple, JVD Chest Exam: Positive: Clear to auscultation; Negative: Rales, Rhonchi, Wheezing Heart Exam: Positive: Rate Normal, Normal S1, Normal S2; Negative: Murmurs Abdomen Exam: Positive: Normal bowel sounds, Soft; Negative: Tenderness Extremity Exam: Positive: Edema (1 mm pitting BLE) Neuro Exam: Positive: Normal Speech Psych Exam: Positive: Mood NL A-FIB/CHADSVASC A-FIB History Current/History of A-Fib/PAF?: No Assessment /Plan Assessment 01/04: When compared to yesterday, CXR demonstrates R sided pleural effusion a bit larger, and patient and his both feel that he has worsening edema. Pro-BNP ordered, and small dose of Lasix given (BP remains low.) Spoke with Dr. Hernandez, who gave a recommendation for a veterans services specialist for him to see in [place], where he could have a cardiac MRI done. Patient and saw Dr. Ayers, anticipate consult note. -- CDT Problems (1) Bilateral pleural effusion Status: Acute Discussed With: Harp Action Assembler, Patient Problem Specific Plan: Monitor Clinically, Repeat Labs Problem Text: 01/04/19: Patient reports to be feeling better. Dr. Coello has signed off from case. Chest x-ray demonstrates improvement in pleural effusions 01/03/19: S/P Thoracentesis left side. Patient tolerated procedure. Repeat chest x-ray. Dr. Coello continues to follow IMPRESSION: Decreased amount of left pleural fluid, status post left thoracentesis. No pneumothorax. 01/02/19: S/P Thoracentesis. Spoke with Dr. Coello this morning who plans to perform thoracentesis on left side Chest x-ray this morning IMPRESSION: 1. Left lower lobe atelectasis or infiltrate unchanged compared to the previous study. 2. Small left pleural effusion decreased compared to the previous study. There has been resolution of the previously noted small right pleural effusion Consult in for Dr Coello, Dr Peres spoke with him and he plans to see the patient today. (2) Lymphoblastic diffuse lymphoma Status: Chronic Response to Treatment: Stable Problem Specific Plan: Monitor Clinically Problem Text: 01/04/19: Oncology consulted yesterday. I called Dr. Ayers's office this morning to follow-up. She was in seeing patient's and was unavailable. Message was left for Dr. Ayers to contact me or the attending. Completed round 4 Chemo on 12/26, follows with Dr Ayers. We will speak with her today regarding current status. (3) E. coli UTI (urinary tract infection) Status: Acute Response to Treatment: Stable Problem Text: 01/03/19: Currently on Macrobid 100mg po bid. No fevers, chills. Patient with hx of BPH and urinary retention. He follows with urology and will need to schedule an appt for f/u with them upon his discharge CDT -- switched to fluoroquinolone. 01/02/19: Urine culture with e-coli 100,000 count. Cre Clearance 62. Will start patient on Macrobid 100 mg i po bid for 5 days (4) Dysphagia Status: Acute Response to Treatment: Stable Problem Text: 01/03/19: Swallow eval performed yesterday. Results still pending at time of this note. His diet was changed from nectar thick back to regular. He continues to report cough and choking sensation with food and liquid consum ption. Speech therapy is following. He may need to f/u with ENT or GI upon discharge for further evaluation 01/02/19: Speech therapy consulted. Meliza swallow eval ordered (5) Hematuria Status: Acute Response to Treatment: Stable Problem Specific Plan: Monitor Clinically, Repeat Labs Problem Text: 01/04/19: Much improved. Being treated for UTI. Islas was in place prior to hospital admission d/t urinary retention. He will need to keep islas until f/u with urology. 01/03/19: Improving 01/02/19: Improving. Patient with UTI. Started on Macrobid Pt had islas placed on 12/29 for urinary retention in the ER, Hgb 12.4 yest, 11.4 today, cont to monitor. Uro has not yet been consulted, his bleeding appears to have slowed if this remains, will f/u with Uro as an outpt. (6) Orthostatic hypotension Status: Chronic Response to Treatment: Stable Problem Text: On Midodrine and Florinef Plan/VTE VTE Prophylaxis Ordered?: No VTE Exclusion Mechanical Proph: N/A:VTE Prophy Ordered VTE Exclusion Pharmacological: Active Bleeding (Hematuria) VS, I&O, 24H, Fishbone Vital Signs/I&O Vital Signs Date Time Temp Pulse Resp B/P (MAP) Pulse Ox O2 Delivery O2 Flow Rate FiO2 01/04/19 08:00 98.5 101 18 101/70 (80) 96 12/31/18 20:07 Room Air I&O- Last 24 Hours up to 6 AM 01/04/19 06:00 Intake Total 870 ml Output Total 1050 ml Balance -180 ml Laboratory Data 24H LABS Laboratory Tests 2 01/04/19 05:21: Anion Gap 5L, Glomerular Filtration Rate > 60.0, Blood Urea Nitrogen 16, Creatinine 0.79, Sodium Level 132L, Potassium Level 4.2, Chloride Level 99, Carbon Dioxide Level 28, Calcium Level 8.8 CBC/BMP Laboratory Tests 01/04/19 05:21 Calcium Level 8.8 Microbiology Microbiology 01/02/19 Acid Fast Stain, Received Pending 01/02/19 Mycobacterial Culture, Received Pending 01/02/19 Fungal Smear, Received Pending 01/02/19 Fungal Culture, Received Pending 01/02/19 Gram Stain - Final, Resulted 01/02/19 Anaerobic Culture, Resulted Pending 01/02/19 Body Fluid Culture, Received Pending 01/01/19 Acid Fast Stain, Received Pending 01/01/19 Mycobacterial Culture, Received Pending 01/01/19 Fungal Smear, Received Pending 01/01/19 Fungal Culture, Received Pending 01/01/19 Gram Stain - Final, Complete 01/01/19 Anaerobic Culture - Final, Complete 01/01/19 Body Fluid Culture - Final, Complete 12/31/18 Urine Culture - Final, Complete Escherichia Coli CESAR SCHNEIDER January 04, 2019 09:58 RADHA SANDRA DO January 04, 2019 23:30
[2019-01-05] VITALS (10 sets, daily range): BP systolic 89–125; BP diastolic 57–85
[2019-01-05] MEDS: SLF 3 ML SYR IV SCH ×3 (06:00→20:40)
[2019-01-05] MEDS: LevoFLOXacin 750 MG TABLET PO SCH (06:00)
--- NOTE | 2019-01-05 08:12 | IPNPDOC ---
Subjective Date Seen The patient was seen on 01/05/19. Subjective Chief Complaint/HPI Patient lying comfortably in bed as I entered the room. He reports to be feeling well. Oncall doctor was notified this morning about slurred speech patient had upon awakening. Patient states it was because his mouth was dry. He has no slurred speech now, no weakness, no headache or other neurological deficits. He reports to be feeling well. He states the swelling in his legs have improved. He denies any SOB, MOLINA or cough Constitutional: Denies: Chills, Fever Pulmonary: Denies: Dyspnea, Cough, Pleuritic Chest Pain Cardiovascular: Reports: Edema (chronic trace ); Denies: Chest Pain, Palpitations, Orthopnea Gastrointestinal: Denies: Nausea, Vomiting, Abdominal Pain Neurological: Denies: Weakness, Numbness, Change in speech, Confusion Psych: Reports: Mood Normal Objective Physical Examination General Exam: Positive: Alert, Cooperative, No Acute Distress ENT Exam: Positive: Mucous membr. moist/pink Neck Exam: Negative: Supple, JVD Chest Exam: Positive: Clear to auscultation; Negative: Rales, Rhonchi, Wheezing Heart Exam: Positive: Rate Normal, Normal S1, Normal S2; Negative: Murmurs Abdomen Exam: Positive: Normal bowel sounds, Soft; Negative: Tenderness Extremity Exam: Positive: Edema (trace edema BLE ankles) Neuro Exam: Positive: Normal Speech Psych Exam: Positive: Mood NL A-FIB/CHADSVASC A-FIB History Current/History of A-Fib/PAF?: No Assessment /Plan Assessment 01/05: Had an unresponsive episode when he got up to the bathroom, lasted several seconds but less than 2 minutes per nursing estimate. Patient and report these are nearly a weekly occurrence recently; often associated with recent positional changes. Orthostatic vitals checked later in the day, but not at the time. -- CDT Problems (1) Bilateral pleural effusion Status: Acute Discussed With: Mix Technician, Patient Problem Specific Plan: Monitor Clinically, Repeat Labs Problem Text: 01/05/19: Chest x-ray from yesterday: Small bilateral pleural effusions unchanged on the left and increased on the right. Patient was given a single dose of Lasix yesterday d/t the development of BLE edema and elevated BNP. Repeat chest x-ray today 01/04/19: Patient reports to be feeling better. Dr. Coello has signed off from case. 01/03/19: S/P Thoracentesis left side. Patient tolerated procedure. Repeat chest x-ray. Dr. Coello continues to follow IMPRESSION: Decreased amount of left pleural fluid, status post left thoracentesis. No pneumothorax. 01/02/19: S/P Thoracentesis. Spoke with Dr. Coello this morning who plans to perform thoracentesis on left side Chest x-ray this morning IMPRESSION: 1. Left lower lobe atelectasis or infiltrate unchanged compared to the previous study. 2. Small left pleural effusion decreased compared to the previous study. There has been resolution of the previously noted small right pleural effusion Consult in for Dr Coello, Dr Peres spoke with him and he plans to see the patient today. (2) Lymphoblastic diffuse lymphoma Status: Chronic Response to Treatment: Stable Problem Specific Plan: Monitor Clinically Problem Text: 01/05/19: Dr. Ayers consulted yesterday. We await her findings and recommendations 01/04/19: Oncology consulted yesterday. I called Dr. Ayers's office this morning to follow-up. She was in seeing patient's and was unavailable. Message was left for Dr. Ayers to contact me or the attending. Completed round 4 Chemo on 12/26, follows with Dr Ayers. We will speak with her today regarding current status. (3) E. coli UTI (urinary tract infection) Status: Acute Response to Treatment: Stable Problem Text: 01/05/19: D3 of Levaquin 01/03/19: Currently on Macrobid 100mg po bid. No fevers, chills. Patient with hx of BPH and urinary retention. He follows with urology and will need to schedule an appt for f/u with them upon his discharge CDT -- switched to fluoroquinolone. 01/02/19: Urine culture with e-coli 100,000 count. Cre Clearance 62. Will start patient on Macrobid 100 mg i po bid for 5 days (4) Dysphagia Status: Acute Response to Treatment: Stable Problem Text: 01/03/19: Swallow eval performed yesterday. Results still pending at time of this note. His diet was changed from nectar thick back to regular. He continues to report cough and choking sensation with food and liquid consumption. Speech therapy is following. He may need to f/u with ENT or GI upon discharge for further evaluation 01/02/19: Speech therapy consulted. Cookie swallow eval ordered (5) Hematuria Status: Acute Response to Treatment: Stable Problem Specific Plan: Monitor Clinically, Repeat Labs Problem Text: 01/04/19: Much improved. Being treated for UTI. Islas was in place prior to hospital admission d/t urinary retention. He will need to keep islas until f/u with urology. 01/03/19: Improving 01/02/19: Improving. Patient with UTI. Started on Macrobid Pt had islas placed on 12/29 for urinary retention in the ER, Hgb 12.4 yest, 11.4 today, cont to monitor. Uro has not yet been consulted, his bleeding appears to have slowed if this remains, will f/u with Uro as an outpt. (6) Orthostatic hypotension Status: Chronic Response to Treatment: Stable Problem Text: On Midodrine and Florinef Plan/VTE VTE Prophylaxis Ordered?: Yes (Mechanical TEDS and sequentials ) VTE Exclusion Mechanical Proph: N/A:VTE Prophy Ordered VTE Exclusion Pharmacological: Active Bleeding (Hematuria) VS, I&O, 24H, Fishbone Vital Signs/I&O Vital Signs Date Time Temp Pulse Resp B/P (MAP) Pulse Ox O2 Delivery O2 Flow Rate FiO2 01/05/19 06:31 125/85 (98) 98 01/05/19 04:00 98.5 100 18 12/31/18 20:07 Room Air l I&O- Last 24 Hours up to 6 AM 01/05/19 06:00 Intake Total 1200 ml Output Total 725 ml Balance 475 ml Laboratory Data 24H LABS Laboratory Tests 2 01/04/19 16:09: [id number] Natriuretic Peptide 6636H Microbiology Microbiology 01/02/19 Acid Fast Stain, Received Pending 01/02/19 Mycobacterial Culture, Received Pending 01/02/19 Fungal Smear, Received Pending 01/02/19 Fungal Culture, Received Pending 01/02/19 Gram Stain - Final, Complete 01/02/19 Anaerobic Culture - Final, Complete 01/02/19 Body Fluid Culture - Final, Complete 01/01/19 Acid Fast Stain, Received Pending 01/01/19 Mycobacterial Culture, Received Pending 01/01/19 Fungal Smear, Received Pending 01/01/19 Fungal Culture, Received Pending 01/01/19 Gram Stain - Final, Complete 01/01/19 Anaerobic Culture - Final, Complete 01/01/19 Body Fluid Culture - Final, Complete 12/31/18 Urine Culture - Final, Complete Escherichia Coli CESAR SCHNEIDER January 05, 2019 08:12 RADHA SANDRA DO January 06, 2019 00:58
[2019-01-05] MEDS: MIDODRINE 5 MG TAB PO SCH ×3 (08:42→17:00)
[2019-01-05] MEDS: FLUDROCORTISONE ACETATE 0.1 MG TAB PO SCH (08:43)
[2019-01-05] MEDS: OMEPRAZOLE 20 MG CAP PO SCH (08:43)
[2019-01-05] MEDS: PREGABALIN 50 MG CAP (LYRICA) PO SCH ×2 (08:43→18:49)
[2019-01-05] MEDS: CYANOCOBALAMIN 500 MCG TAB PO SCH (08:43)
[2019-01-05] MEDS: DOCUSATE SODIUM 100 MG CAP PO SCH (08:44)
[2019-01-05] MEDS: SALIVA SUBSTITUTE(MOUTHKOTE) BTL MT PRN ×2 (08:46→18:49)
[2019-01-05 09:23] LABS: BLOOD UREA NITROGEN 17 MG/DL (7-18); CALCIUM LEVEL 8.8 MG/DL (8.8-10.2); CARBON DIOXIDE LEVEL 27 MEQ/L (21-32); CHLORIDE LEVEL 99 MEQ/L (98-107); CREATININE FOR GFR 0.87 MG/DL (0.70-1.30); GLOMERULAR FILTRATION RATE > 60.0 (>49); GLUCOSE, FASTING 111 MG/DL (70-100); POTASSIUM SERUM 4.7 MEQ/L (3.5-5.1); SODIUM LEVEL 133 MEQ/L (136-145)
--- NOTE | 2019-01-05 09:52 | REP ---
Chest two views HISTORY: Pleural effusion Comparison: 01/04/2019 Linear density is present in the left lower lobe consistent with atelectasis. The right lung is clear. Small bilateral pleural effusions are present unchanged compared to the previous study. The heart is normal in size. The pulmonary vasculature is normal in appearance. The bony structure is intact. IMPRESSION: 1. Left lower lobe atelectasis. 2. Small bilateral pleural effusions unchanged compared to the previous study. Electronically Signed by Adolfo Henderson MD 01/05/2019 09:43 A
[2019-01-05] MEDS: NORTRIPTYLINE 10 MG CAP PO SCH ×2 (13:16→20:40)
[2019-01-05] MEDS: FINASTERIDE 5 MG TAB PO SCH (17:00)
[2019-01-06 04:00] VITALS: BP 102/64
[2019-01-06] MEDS: SLF 3 ML SYR IV SCH ×3 (04:35→20:11)
[2019-01-06] MEDS: LevoFLOXacin 750 MG TABLET PO SCH (05:33)
[2019-01-06 08:00] VITALS: BP 103/65
[2019-01-06] MEDS: OMEPRAZOLE 20 MG CAP PO SCH (08:05)
[2019-01-06] MEDS: FLUDROCORTISONE ACETATE 0.1 MG TAB PO SCH (08:05)
[2019-01-06] MEDS: MIDODRINE 5 MG TAB PO SCH ×3 (08:05→16:56)
[2019-01-06] MEDS: DOCUSATE SODIUM 100 MG CAP PO SCH (08:06)
[2019-01-06] MEDS: CYANOCOBALAMIN 500 MCG TAB PO SCH (08:06)
[2019-01-06] MEDS: PREGABALIN 50 MG CAP (LYRICA) PO SCH ×2 (08:06→18:37)
--- NOTE | 2019-01-06 10:08 | REP ---
CHEST, TWO VIEWS: Two views of the chest are performed. Bilateral pleural effusions appear unchanged, relatively small in size, there is greater amount of pleural fluid on the left than on the right. Mild patchy parenchymal opacity in the left base is essentially stable. The heart is normal in size. The mediastinal silhouette is unchanged. IMPRESSION: Stable exam. Electronically Signed by Piotr Corona MD 01/06/2019 03:11 P
[2019-01-06 12:03] VITALS: BP_SYST 80; BP_SYST 95; BP_SYST 98; BP_DIAS 56; BP_DIAS 60
[2019-01-06 12:18] LABS: HEMATOCRIT 34.5 % (42.0-52.0); HEMOGLOBIN 11.2 g/dl (13.5-17.5); MEAN CORPUSCULAR HEMOGLOBIN 28.4 pg (27.0-33.0); MEAN CORPUSCULAR HGB CONC 32.5 g/dl (32.0-36.5); MEAN CORPUSCULAR VOLUME 87.3 fl (80.0-96.0); PLATELET COUNT, AUTOMATED 300 10^3/uL (150-450); RED BLOOD COUNT 3.95 10^6/uL (4.30-6.10)
[2019-01-06 12:40] LABS: ALBUMIN 2.9 GM/DL (3.2-5.2); ALT/SGPT 25 U/L (12-78); BILIRUBIN,TOTAL 0.6 MG/DL (0.2-1.0); BLOOD UREA NITROGEN 18 MG/DL (7-18); CARBON DIOXIDE LEVEL 28 MEQ/L (21-32); CHLORIDE LEVEL 100 MEQ/L (98-107); CREATININE FOR GFR 0.83 MG/DL (0.70-1.30); GLOMERULAR FILTRATION RATE > 60.0 (>49); GLUCOSE, FASTING 97 MG/DL (70-100); POTASSIUM SERUM 4.3 MEQ/L (3.5-5.1); SODIUM LEVEL 131 MEQ/L (136-145)
[2019-01-06] MEDS: NORTRIPTYLINE 10 MG CAP PO SCH ×2 (13:43→20:10)
[2019-01-06 14:00] VITALS: BP 109/78
[2019-01-06] MEDS: FINASTERIDE 5 MG TAB PO SCH (16:56)
--- NOTE | 2019-01-06 18:20 | IPNPDOC ---
Subjective Date Seen The patient was seen on 01/06/19. Subjective Chief Complaint/HPI pleural effusion/orthostasis Events since last encounter He had a brief episode of decreased responsiveness yesterday after getting up to bathroom for shower; had only been on his feet briefly. Unclear what his BP was at the time, was not taken until he was lying back down in bed. Since then, he has not had any similar symptoms. He and his feel that his lower extremity edema is fairly well controll. He notes that he is a bit lightheaded this morning. Constitutional: Denies: Chills, Fever Pulmonary: Denies: Dyspnea, Cough Cardiovascular: Reports: Edema (minimal); Denies: Chest Pain, Palpitations Gastrointestinal: Denies: Nausea, Vomiting, Diarrhea, Constipation Psych: Reports: Mood Normal Objective Physical Examination General Exam: Positive: Alert, Cooperative, No Acute Distress ENT Exam: Positive: Mucous membr. moist/pink Neck Exam: Negative: Supple, JVD Chest Exam: Positive: Clear to auscultation; Negative: Rales, Rhonchi, Wheezing Heart Exam: Positive: Rate Normal, Normal S1, Normal S2; Negative: Murmurs Abdomen Exam: Positive: Normal bowel sounds, Soft; Negative: Tenderness Extremity Exam: Positive: Edema (trace edema BLE ankles) Neuro Exam: Positive: Normal Speech Psych Exam: Positive: Mood NL A-FIB/CHADSVASC A-FIB History Current/History of A-Fib/PAF?: No Assessment /Plan Problems (1) Bilateral pleural effusion Status: Acute Discussed With: Groutman, Patient Problem Specific Plan: Monitor Clinically, Repeat Labs Problem Text: 01/06: Continuing to monitor with CXR. 01/05/19: Chest x-ray from yesterday: Small bilateral pleural effusions unchanged on the left and increased on the right. Patient was given a single dose of Lasix yesterday d/t the development of BLE edema and elevated BNP. Repeat chest x-ray today 01/04/19: Patient reports to be feeling better. Dr. Coello has signed off from case. 01/03/19: S/P Thoracentesis left side. Patient tolerated procedure. Repeat chest x-ray. Dr. Coello continues to follow IMPRESSION: Decreased amount of left pleural fluid, status post left thoracentesis. No pneumothorax. 01/02/19: S/P Thoracentesis. Spoke with Dr. Coello this morning who plans to perform thoracentesis on left side Chest x-ray this morning IMPRESSION: 1. Left lower lobe atelectasis or infiltrate unchanged compared to the previous study. 2. Small left pleural effusion decreased compared to the previous study. There has been resolution of the previously noted small right pleural effusion Consult in for Dr Coello, Dr Peres spoke with him and he plans to see the patient today. (2) Lymphoblastic diffuse lymphoma Status: Chronic Response to Treatment: Stable Problem Specific Plan: Monitor Clinically Problem Text: 01/05/19: Dr. Ayers consulted yesterday. We await her findings and recommendations 01/04/19: Oncology consulted yesterday. I called Dr. Ayers's office this morning to follow-up. She was in seeing patient's and was unavailable. Message was left for Dr. Ayers to contact me or the attending. Completed round 4 Chemo on 12/26, follows with Dr Ayers. We will speak with her today regarding current status. (3) Orthostatic hypotension Status: Chronic Response to Treatment: Stable Problem Text: 01/06: Worse yesterday after receiving Lasix the day before. This is likely the cause of his (recurrent) "zoning out"/nonresponsive episodes. On Midodrine and Florinef (4) E. coli UTI (urinary tract infection) Status: Acute Response to Treatment: Stable Problem Text: 01/05/19: D3 of Levaquin 01/03/19: Currently on Macrobid 100mg po bid. No fevers, chills. Patient with hx of BPH and urinary retention. He follows with urology and will need to schedule an appt for f/u with them upon his discharge CDT -- switched to fluoroquinolone. 01/02/19: Urine culture with e-coli 100,000 count. Cre Clearance 62. Will start patient on Macrobid 100 mg i po bid for 5 days (5) Dysphagia Status: Acute Response to Treatment: Stable Problem Text: 01/06: Diet has been per ST, and he continues to work with ST as an inpatient. 01/03/19: Swallow eval performed yesterday. Results still pending at time of this note. His diet was changed from nectar thick back to regular. He continues to report cough and choking sensation with food and liquid consumption. Speech therapy is following. He may need to f/u with ENT or GI upon discharge for further evaluation 01/02/19: Speech therapy consulted. Cookie swallow eval ordered (6) Hematuria Status: Acute Response to Treatment: Stable Problem Specific Plan: Monitor Clinically, Repeat Labs Problem Text: 01/04/19: Much improved. Being treated for UTI. Islas was in place prior to hospital admission d/t urinary retention. He will need to keep islas until f/u with urology. 01/03/19: Improving 01/02/19: Improving. Patient with UTI. Started on Macrobid Pt had islas placed on 12/29 for urinary retention in the ER, Hgb 12.4 yest, 11.4 today, cont to monitor. Uro has not yet been consulted, his bleeding appears to have slowed if this remains, will f/u with Uro as an outpt. Plan/VTE VTE Prophylaxis Ordered?: Yes (Mechanical TEDS and sequentials ) VTE Exclusion Mechanical Proph: N/A:VTE Prophy Ordered VTE Exclusion Pharmacological: Active Bleeding (Hematuria) VS, [facility]O, [facility]/I&O Vital Signs Date Time Temp Pulse Resp B/P (MAP) Pulse Ox O2 Delivery O2 Flow Rate FiO2 01/06/19 14:00 97.7 99 18 109/78 (88) 97 12/31/18 20:07 Room Air I&O- Last 24 Hours up to 6 AM 01/06/19 06:00 Intake Total 1490 ml Output Total 850 ml Balance 640 ml Laboratory Data 24H LABS Laboratory Tests 2 01/06/19 11:53: Nucleated Red Blood Cells % (auto) 0.0, Anion Gap 3L, Glomerular Filtration Rate > 60.0, Blood Urea Nitrogen 18, Creatinine 0.83, Sodium Level 131L, Potassium Level 4.3, Chloride Level 100, Carbon Dioxide Level 28, Calcium Level 8.0L, Aspartate Amino Transf (AST/SGOT) 11, Alanine Aminotransferase (ALT/SGPT) 25, Alkaline Phosphatase 132H, Total Bilirubin 0.6, Total Protein 5.0L, Albumin 2.9L, Albumin/Globulin Ratio 1.38 CBC/BMP Laboratory Tests 01/06/19 11:53 Red Blood Count 3.95 L, Mean Corpuscular Volume 87.3, Mean Corpuscular Hemoglobin 28.4, Mean Corpuscular Hemoglobin Concent 32.5, Red Cell Distribution Width 17.1 H, Calcium Level 8.0 L, Aspartate Amino Transf (AST/SGOT) 11, Alanine Aminotransferase (ALT/SGPT) 25, Alkaline Phosphatase 132 H, Total Bilirubin 0.6, Total Protein 5.0 L, Albumin 2.9 L Microbiology Microbiology 01/02/19 Acid Fast Stain, Received Pending 01/02/19 Mycobacterial Culture, Received Pending 01/02/19 Fungal Smear, Received Pending 01/02/19 Fungal Culture, Received Pending 01/02/19 Gram Stain - Final, Complete 01/02/19 Anaerobic Culture - Final, Complete 01/02/19 Body Fluid Culture - Final, Complete 01/01/19 Acid Fast Stain, Received Pending 01/01/19 Mycobacterial Culture, Received Pending 01/01/19 Fungal Smear, Received Pending 01/01/19 Fungal Culture, Received Pending 01/01/19 Gram Stain - Final, Complete 01/01/19 Anaerobic Culture - Final, Complete 01/01/19 Body Fluid Culture - Final, Complete 12/31/18 Urine Culture - Final, Complete Escherichia Coli RADHA SANDRA DO January 06, 2019 18:20
[2019-01-06 20:00] VITALS: BP 101/60
[2019-01-06] MEDS: SALIVA SUBSTITUTE(MOUTHKOTE) BTL MT PRN (20:11)
[2019-01-06 23:59] VITALS: BP 114/78
[2019-01-07 04:00] VITALS: BP 116/81
[2019-01-07] MEDS: SLF 3 ML SYR IV SCH (06:00)
[2019-01-07] MEDS: LevoFLOXacin 750 MG TABLET PO SCH (06:04)
[2019-01-07 08:00] VITALS: BP 111/75
[2019-01-07] MEDS: MIDODRINE 5 MG TAB PO SCH (08:00)
[2019-01-07] MEDS: OMEPRAZOLE 20 MG CAP PO SCH (08:00)
[2019-01-07] MEDS: PREGABALIN 50 MG CAP (LYRICA) PO SCH (08:01)
[2019-01-07] MEDS: FLUDROCORTISONE ACETATE 0.1 MG TAB PO SCH (08:01)
[2019-01-07] MEDS: CYANOCOBALAMIN 500 MCG TAB PO SCH (08:01)
[2019-01-07] MEDS: DOCUSATE SODIUM 100 MG CAP PO SCH (08:01)
[2019-01-07 12:00] VITALS: BP 95/64
[2019-01-07] MEDS ORDERED: SENN18TA PO (12:46)
--- NOTE | 2019-01-30 17:44 | DS.PDOC ---
Discharge Summary General Date of Admission Dec 31, 2018 at 16:42 Date of Discharge January 07, 2019 Primary Care Physician: Kayode Scott M.D. Attending Physician: RADHA SANDRA DO Specialist/Consultants Involve: Richar Coello M.D. Discharge Summary PROCEDURES PERFORMED DURING STAY: thoracentesis ADMITTING DIAGNOSES: 1. Bilateral pleural effusion 2. Orthostatic hypotension 3. Lymphoma, unspecified body region, unspecified lymphoma type 4. BPH with urinary obstruction 5. Gross hematuria 6. Essential (primary) hypertension 7. GERD (gastroesophageal reflux disease) DISCHARGE DIAGNOSES: 1. Bilateral pleural effusion 2. Orthostatic hypotension 3. Lymphoma, unspecified body region, unspecified lymphoma type 4. BPH with urinary obstruction 5. Gross hematuria 6. Essential (primary) hypertension 7. GERD (gastroesophageal reflux disease) 8. E. coli UTI 9. Dysphagia COMPLICATIONS/CHIEF COMPLAINT: Bilat Pleural Effusion, Orthostatic Hypotension. HISTORY OF PRESENT ILLNESS: Mr. Del Cid is a patient of Dr. Scott's who was brought to the ER by his due to persistent blood in his [place] bag. 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 He just completed 4 treatments with rituximab with the last being on 12/26/18. On 12/30 his brought him to the ER and he was found to have urinary retention. He had a known h/o BPH and had seen urology for this in the recent past. In the ER a [place] catheter was placed, but it was a traumatic placment and he has bloody urine since. It was for this that his brought him to the ER today. He also has a h/o significant orthostasis (the etiology is unclear to me at this time) and is treated for this with midodrine and fludrocortisone through Dr. Stark' office. He has had some LE edema, and was taking oral Lasix 20mg bid up until the ER visit 12/30 when they were told to hold this. While here in the ER his Hb was reassuringly 12.8 and the U/A looks mostly like peripheral blood. However he was found to have large bilateral pleural effusions and this is actually the reason that he requires admission. He is relatively asymptomatic from this. He has noticed that he has to stop to catch his breath after 1-2 sentences, and he used to be able to go longer than that without having to stop to catch a breath. He also notes that he feels like coughing a lot when he just changes position. These are the only symptoms he reports. HOSPITAL COURSE: Patient was admitted to the hospital, and received thoracentesis on 01/01 and 01/02 to address his bilateral pleural effusions, with decreased respiratory effort. He was treated for a urinary tract infection. His home diuretics were initially held secondary to orthostasis, but resumed when his fluid status worsened. Both cardiology and thoracic surgery suspected an element of amyloidosis, and Dr. Hernandez made a recommendation for a cardiology subspecialist for him to followup with in the outpt setting, to get a cardiac MRI. The day after receiving Lasix, he had an episode of decreased responsiveness while getting to the shower; patient and state that he has had these on an ongoing basis at home, and attribute them to orthostasis. He was monitored for 24 hours following this. By 01/07, he and his felt that his edema was baseline, and that he was ready for DC. He passed PT and ST, and was discharged home. DISCHARGE MEDICATIONS: Please see below. ALLERGIES: Please see below. PHYSICAL EXAMINATION ON DISCHARGE: VITAL SIGNS: Please see below. GENERAL: chronically ill appearing, comfortable HEENT: mucous membranes moist CARDIOVASCULAR EXAMINATION: regular rate and rhythm RESPIRATORY EXAMINATION: clear to auscultation bilat ABDOMINAL EXAMINATION: soft, nontender, nondistended EXTREMITIES: 1+ edema in bilat LE SKIN: clean, dry, intact NEUROLOGICAL EXAMINATION: no acute PSYCHIATRIC EXAMINATION: WNL LABORATORY DATA: Please see below. IMAGING: multiple CXR initially showing bilat pleural effusions PROGNOSIS: guarded ACTIVITY: [As tolerated]. DIET: regular DISCHARGE PLAN: home with services DISPOSITION: Home Health Service. DISCHARGE INSTRUCTIONS: 1. Call the office Tuesday for followup 2. Contact the office with any problems, complaints, or concerns ITEMS TO FOLLOWUP ON ON OUTPATIENT: 1. oncology 2. fitness specialist and cardiac MRI 3. fluid status DISCHARGE CONDITION: [Stable]. TIME SPENT ON DISCHARGE: Greater than 15 minutes. Discharge Medications Scheduled Aspirin (Aspir 81) 81 Mg Tab, 81 MG PO DAILY, (Reported) Cyanocobalamin (Vitamin B-12) (Vitamin B-12) 500 Mcg Tab, 500 MCG PO DAILY, (Reported) Docusate Sodium (Colace) 100 Mg Cap, 100 MG PO DAILY, (Reported) Finasteride (Finasteride) 5 Mg Tablet, 5 MG PO QPM, (Reported) TAKES AT 1700 Fludrocortisone Acetate (Fludrocortisone Acetate) 0.1 Mg Tablet, 0.1 MG PO DAILY, (Reported) Midodrine HCl (Midodrine HCl) 10 Mg Tablet, 10 MG PO TID, (Reported) TAKES AT 0730/1300/1700 Nortriptyline HCl (Nortriptyline HCl) 10 Mg Cap, 10 MG PO BID, (Reported) TAKES AT 1300/HS Omeprazole (Omeprazole) 40 Mg Capsule.dr, 40 MG PO DAILY, (Reported) Pregabalin (Lyrica) 50 Mg Cap, 50 MG PO BID, (Reported) TAKES AT 0730/1930 Scheduled PRN Acetaminophen (Acetaminophen) 325 Mg Tab, 325 MG PO QID PRN for PAIN / FEVER, (Reported) Furosemide (Lasix) 20 Mg Tablet, 20 MG PO DAILYPRN PRN for CONGESTION, (Reported) Polyethylene Glycol 3350 (Miralax) 1 Pow Pow, 17 GRAM PO DAILY PRN for CONSTIPATION, (Reported) dissolve in water Senna (Senna Lax) 8.6 Mg Tablet, 1 TAB PO DAILYPRN PRN for CONSTIPATION Allergies Coded Allergies: bortezomib (Verified Adverse Reaction, Intermediate, NEUROPATHY, 12/01/18) duloxetine (Verified Adverse Reaction, Intermediate, LOW BP SEIZURES, 12/01/18) gabapentin (Verified Adverse Reaction, Mild, PASSED OUT, 12/01/18) RADHA SANDRA DO January 30, 2019 17:44
== END 2019-01-07 13:50 | disposition home health service (06) | DRG 187 ==
LOC: M ED 12:11 → M ED INP 16:42 → M PCU 20:13
PROVIDERS: ADMIT Family Medicine; ATTEND Family Medicine
PROC: 0W993ZX Drainage of Right Pleural Cavity, Percutaneous Approach, Diagnostic (ICD-10-PCS; principal; 2019-01-01)
PROC: 0W9B3ZZ Drainage of Left Pleural Cavity, Percutaneous Approach (ICD-10-PCS; 2019-01-02)
DX: J90 Pleural effusion, not elsewhere classified (principal); C83.50 Lymphoblastic (diffuse) lymphoma, unspecified site; N39.0 Urinary tract infection, site not specified; E87.1 Hypo-osmolality and hyponatremia; E85.9 Amyloidosis, unspecified; R31.0 Gross hematuria; C88.0 Waldenstrom macroglobulinemia; I12.9 Hypertensive chronic kidney disease with stage 1 through stage 4 chronic kidney disease, or unspecified chronic kidney disease; N18.3 Chronic kidney disease, stage 3 (moderate); K21.9 Gastro-esophageal reflux disease without esophagitis; B96.20 Unspecified Escherichia coli [E. coli] as the cause of diseases classified elsewhere; I36.1 Nonrheumatic tricuspid (valve) insufficiency; R13.10 Dysphagia, unspecified; I95.1 Orthostatic hypotension; G43.009 Migraine without aura, not intractable, without status migrainosus; G62.0 Drug-induced polyneuropathy; T45.1X5D Adverse effect of antineoplastic and immunosuppressive drugs, subsequent encounter; N40.1 Benign prostatic hyperplasia with lower urinary tract symptoms; R33.9 Retention of urine, unspecified; E78.5 Hyperlipidemia, unspecified; Z88.8 Allergy status to other drugs, medicaments and biological substances; Z87.891 Personal history of nicotine dependence; Z79.82 Long term (current) use of aspirin; Z79.899 Other long term (current) drug therapy

== ENCOUNTER 2019-01-13 07:36 | Emergency (ER) | payer MEDICARE, OTHER ==
[~2019-01-13 07:36] MED LIST changes: +FINA5TAB2 PO; +SENN18TA PO
[2019-01-13] MEDS ORDERED: EPINEPHrine 1MG/10ML SYRINGE 1.5IN IV STA ×3 (07:45→09:19)
[2019-01-13] MEDS ORDERED: SODIUM BICARBONATE 8.4% INJ 50 ML SYRINGE IV STA (07:50)
[2019-01-13 07:59] LABS: ABG BASE EXCESS -11.4 (-2.0-2.0); ABG HCO3 20.2 MEQ/L (22.0-26.0); ABG O2 SATURATION 97.2 % (95.0-99.0); ABG PARTIAL PRESSURE O2 139.9 mmHg (75.0-100.0); ABG STANDARD HCO3 15.4 MEQ/L (22.0-26.0); ABG TOTAL CO2 22.6 MEQ/L (23.0-31.0)
[2019-01-13] MEDS ORDERED: NS 500 ML IV ONE (08:00)
[2019-01-13 08:04] LABS: ABG PARTIAL PRESSURE CO2 78.4 mmHg (35.0-45.0); ABG pH (ARTERIAL) 7.029 UNITS (7.350-7.450)
[2019-01-13 08:11] LABS: BASO # 0.1 10^3/uL (0.0-0.2); BASO % 0.5 % (0.0-1.0); EOS % 0.2 % (0.0-3.0); LYMPH # 1.5 10^3/uL (1.5-4.5); LYMPH % 15.1 % (24.0-44.0); MEAN CORPUSCULAR HEMOGLOBIN 28.4 pg (27.0-33.0); MEAN CORPUSCULAR HGB CONC 30.6 g/dl (32.0-36.5); MONO # 0.4 10^3/uL (0.0-0.8); MONO % 4.3 % (0.0-5.0); NEUTROPHILS # 7.7 10^3/uL (1.8-7.7); NEUTROPHILS % 77.2 % (36.0-66.0); PLATELET COUNT, AUTOMATED 258 10^3/uL (150-450); RED BLOOD COUNT 3.87 10^6/uL (4.30-6.10)
[2019-01-13 08:27] VITALS: BP 64/45
[2019-01-13 08:34] LABS: INR 1.69; PROTHROMBIN TIME 20.2 SECONDS (12.1-14.4)
--- NOTE | 2019-01-13 08:34 | REP ---
Oral chest x-ray: Single AP supine view. History: Chest pain. Comparison chest x-ray January 06, 2019. Findings: An endotracheal tube is seen in good position just below the proximal clavicles. The heart is mildly prominent. There is evidence of right pleural effusion on this supine chest. The left diaphragm is not well visualized suggesting left pleural effusion as well. Perihilar interstitial markings and vascular markings are prominent consistent with pulmonary edema. Considerable artifact is seen as the patient is radiographed on a backboard. EKG electrodes are noted. Impression: Findings consistent with CHF pattern with pulmonary edema and bilateral pleural effusions. The ETT is in good position. Electronically Signed by Amando Delarosa MD 01/13/2019 08:26 A
[2019-01-13 08:35] LABS: PARTIAL THROMBOPLASTIN TIME 59.5 SECONDS (25.4-37.6)
[2019-01-13 08:39] LABS: BLOOD UREA NITROGEN 18 MG/DL (7-18); CALCIUM LEVEL 7.9 MG/DL (8.8-10.2); CARBON DIOXIDE LEVEL 23 MEQ/L (21-32); CHLORIDE LEVEL 98 MEQ/L (98-107); CPK CREATINE PHOSPHOKINASE 154 U/L (39-308); CREATININE FOR GFR 1.21 MG/DL (0.70-1.30); GLOMERULAR FILTRATION RATE > 60.0 (>49); GLUCOSE, FASTING 179 MG/DL (70-100); MB/CK RELATIVE INDEX 1.88 (< OR =4); POTASSIUM SERUM 5.2 MEQ/L (3.5-5.1); SODIUM LEVEL 133 MEQ/L (136-145); TROPONIN I 0.29 NG/ML (< 0.10)
[2019-01-13] MEDS ORDERED: LASI20TA3 PO (08:40)
[2019-01-13] MEDS ORDERED: NS 1,000 ML IV ONE (09:30)
--- NOTE | 2019-01-13 17:12 | ECGEPIP ---
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
== END 2019-01-13 11:04 | disposition expired ==
LOC: EDBD 07:36 → M ED 07:36
DX: I46.9 Cardiac arrest, cause unspecified (principal); I48.91 Unspecified atrial fibrillation; I50.1 Left ventricular failure, unspecified; J90 Pleural effusion, not elsewhere classified; C85.90 Non-Hodgkin lymphoma, unspecified, unspecified site; Z88.8 Allergy status to other drugs, medicaments and biological substances; Z79.899 Other long term (current) drug therapy; Z79.82 Long term (current) use of aspirin